=== PATIENT | female | born 1960 | race Caucasian/White ===

== ENCOUNTER 2017-01-05 13:45 | Inpatient (IN) | payer OTHER ==
[~2017-01-05] VITALS: Ht 147.3 cm; Wt 73.8 kg
[~2017-01-05 13:45] MED LIST: AML5T PO; ASPI81CH43 PO; ATOR20TA50 PO; CLO01T PO; FLUT110A INH; LIS20T PO; METF-312 PO
[2017-01-05] MEDS ORDERED: SODIUM CHLORIDE 0.9% 1,000 ML IVB ONE (14:33)
[2017-01-05 14:37] LABS: Basophils # (auto) 0.3 uL; Basophils % (auto) 1.6 % (0.0-2.0); Eosinophils # (auto) 0.2 uL; Eosinophils % (auto) 1.4 % (0.0-7.0); Hematocrit 41.8 % (36.0-46.0); Hemoglobin 14.3 g/dL (12.2-16.2); Lymphocytes # (auto) 3.3 uL; Lymphocytes % (auto) 20.6 % (10.0-50.0); Mean Corpuscular Hemoglobin 28.3 pg (28.0-32.0); Mean Corpuscular Hgb Conc. 34.3 g/dL (32.0-36.0); Mean Corpuscular Volume 82.6 fL (80.0-100.0); Mean Platelet Volume 9.4 fL (7.4-10.4); Monocytes # (auto) 0.7 uL; Monocytes % (auto) 4.7 % (0.0-12.0); Neutrophils # (auto) 11.4 uL; Neutrophils % (auto) 71.7 % (37.0-80.0); Platelet Count (auto) 334 10^3/uL (140-450); Red Cell Distribution Width 15.8 % (11.6-16.0); White Blood Cell 15.9 10^3/uL (4.4-10.8)
[2017-01-05 15:11] LABS: Albumin 4.2 g/dL (3.4-5.0); Bilirubin, Total 0.3 mg/dL (0.2-1.0); Calcium 9.3 mg/dL (8.5-10.1); Potassium 3.8 mmol/L (3.5-5.1); Total Protein 8.3 g/dL (6.4-8.2)
[2017-01-05 15:12] LABS: INR 0.91 (0.9-1.15); Partial Thromboplastin Time 23.3 sec (22.64-33.71); Prothrombin Time 9.8 sec (9.37-12.3)
[2017-01-05] MEDS ORDERED: cloNIDine HCL 0.1 MG TAB PO ONE (15:30)
[2017-01-05] MEDS ORDERED: MORPHINE SULF INJ 2 MG/ML SYRINGE 1ML IV ONE (15:30)
[2017-01-05] MEDS ORDERED: ONDANSETRON HCL 4 MG/2 ML VIAL IV ONE (15:30)
[2017-01-05] MEDS ORDERED: cefTRIAXone 1GM/50ML D5W 50 ML IV ONE (16:15)
[2017-01-05] MEDS ORDERED: metroNIDAZOLE 500MG/100ML 100 ML IV ONE (16:15)
[2017-01-05] MEDS ORDERED: VANCOMYCIN PER PHARMACY 0 MG IV SCH (17:30)
[2017-01-05] MEDS ORDERED: ONDANSETRON HCL 4 MG/2 ML VIAL IV PRN (17:30)
[2017-01-05] MEDS ORDERED: ACETAMINOPHEN 325 MG TAB PO PRN (17:30)
[2017-01-05] MEDS ORDERED: MORPHINE SULF INJ 2 MG/ML SYRINGE 1ML IV PRN (17:30)
[2017-01-05] MEDS ORDERED: TEMAZEPAM 15 MG CAP PO PRN (17:30)
[2017-01-05] MEDS ORDERED: NITROGLYCERIN 0.4 MG SL TAB SL PRN (17:30)
[2017-01-05] MEDS ORDERED: LABETALOL HCL 5 MG/ML 4ML SYRINGE IV PRN (17:30)
[2017-01-05] MEDS ORDERED: DEXTROSE (50%) 50ML SYRG IV PRN (17:30)
[2017-01-05] MEDS ORDERED: ENALAPRILAT 1.25 MG/ML-1ML VIAL IV PRN (17:30)
[2017-01-05] MEDS: MULTIPLE VITAMIN TAB PO SCH (18:00)
[2017-01-05] MEDS: amLODIPine BESYLATE 5 MG TAB PO SCH (18:30)
[2017-01-05] MEDS: LISINOPRIL 20 MG TAB PO SCH (18:30)
[2017-01-05] MEDS: VANCOMYCIN 750 MG in D5W 5% 250 ML IV SCH (18:30)
[2017-01-05] MEDS: SODIUM CHLOR 0.9% PF (SALINE LOCK) 10ML VIAL IV SCH (21:40)
[2017-01-05] MEDS: ACCU-CHEK COMFORT CURVE STRIP VI SCH (21:40)
[2017-01-05] MEDS: FAMOTIDINE 20 MG TAB PO SCH (21:40)
[2017-01-05] MEDS: ATORVASTATIN 20 MG TAB PO SCH (21:40)
[2017-01-05] MEDS: InsuLIN REG 1unit/0.01ml Soln (100units/ml) SC SCH (21:41)
[2017-01-05 21:45] VITALS: BP 136/83
[2017-01-05] MEDS: HYDROcodone-ACET 5/325MG TAB PO PRN (22:02)
[2017-01-05 22:55] VITALS: BP 136/83
[2017-01-05] MEDS: BUDESONIDE (INHALATION) 0.5 MG/2 ML NEB NEB SCH (23:00)
[2017-01-06] MEDS: HYDROcodone-ACET 5/325MG TAB PO PRN ×3 (02:20→14:42)
[2017-01-06 04:33] VITALS: BP 121/52
[2017-01-06 06:47] LABS: Basophils # (auto) 0.1 uL; Basophils % (auto) 0.7 % (0.0-2.0); Eosinophils # (auto) 0.2 uL; Eosinophils % (auto) 2.1 % (0.0-7.0); Hematocrit 35.2 % (36.0-46.0); Hemoglobin 11.7 g/dL (12.2-16.2); Lymphocytes # (auto) 2.2 uL; Lymphocytes % (auto) 22.8 % (10.0-50.0); Mean Corpuscular Hemoglobin 28.2 pg (28.0-32.0); Mean Corpuscular Hgb Conc. 33.2 g/dL (32.0-36.0); Mean Corpuscular Volume 84.9 fL (80.0-100.0); Monocytes # (auto) 0.5 uL; Monocytes % (auto) 4.9 % (0.0-12.0); Neutrophils # (auto) 6.6 uL; Neutrophils % (auto) 69.5 % (37.0-80.0); Platelet Count (auto) 254 10^3/uL (140-450); Red Cell Distribution Width 15.6 % (11.6-16.0); White Blood Cell 9.5 10^3/uL (4.4-10.8)
[2017-01-06] MEDS: ACCU-CHEK COMFORT CURVE STRIP VI SCH ×4 (06:53→22:02)
[2017-01-06] MEDS: SODIUM CHLOR 0.9% PF (SALINE LOCK) 10ML VIAL IV SCH ×3 (06:53→22:02)
[2017-01-06] MEDS: VANCOMYCIN 750 MG in D5W 5% 250 ML IV SCH ×2 (06:53→17:21)
[2017-01-06] MEDS: InsuLIN REG 1unit/0.01ml Soln (100units/ml) SC SCH ×4 (06:54→22:00)
[2017-01-06 07:11] LABS: Albumin 3.3 g/dL (3.4-5.0); BUN/Creatinine Ratio 22.4; Bilirubin, Total 0.4 mg/dL (0.2-1.0); Calcium 8.7 mg/dL (8.5-10.1); Potassium 4.1 mmol/L (3.5-5.1); Total Protein 6.4 g/dL (6.4-8.2)
[2017-01-06 07:11] LABS: Urine Bilirubin Negative (Negative); Urine Blood Negative /uL (Negative); Urine Color Yellow (Yellow); Urine Ketone Negative (Negative); Urine Mucus FEW (None Seen); Urine Nitrite Negative (Negative); Urine RBC 2 /hpf (0 - 4); Urine Squamous Epithelial Cell FEW /hpf (<5); Urine Urobilinogen Normal (Negative); Urine pH 5.5 (5.0-8.0)
[2017-01-06 07:12] LABS: Urine Glucose 1+ mg/dL (Normal)
[2017-01-06 08:00] VITALS: BP 123/81
[2017-01-06 09:00] VITALS: BP 123/81
[2017-01-06] MEDS: cefTRIAXone 1GM/50ML D5W 50 ML IV SCH (09:14)
[2017-01-06] MEDS: LISINOPRIL 20 MG TAB PO SCH (09:15)
[2017-01-06] MEDS: FAMOTIDINE 20 MG TAB PO SCH ×2 (09:15→22:02)
[2017-01-06] MEDS: MULTIPLE VITAMIN TAB PO SCH (09:15)
[2017-01-06] MEDS: amLODIPine BESYLATE 5 MG TAB PO SCH (09:16)
[2017-01-06] MEDS: BUDESONIDE (INHALATION) 0.5 MG/2 ML NEB NEB SCH ×2 (11:02→22:45)
[2017-01-06 13:00] VITALS: BP 108/74
[2017-01-06 17:00] VITALS: BP 166/76
[2017-01-06] MEDS: MORPHINE SULF INJ 2 MG/ML SYRINGE 1ML IV PRN ×2 (17:42→22:40)
[2017-01-06 21:52] VITALS: BP 156/77
[2017-01-06] MEDS: ATORVASTATIN 20 MG TAB PO SCH (22:02)
[2017-01-07] VITALS (7 sets, daily range): BP systolic 156–163; BP diastolic 71–88
[2017-01-07] MEDS: HYDROcodone-ACET 5/325MG TAB PO PRN ×4 (02:45→21:05)
[2017-01-07] MEDS: MORPHINE SULF INJ 2 MG/ML SYRINGE 1ML IV PRN ×4 (04:34→19:06)
[2017-01-07 05:17] LABS: Basophils # (auto) 0 uL; Basophils % (auto) 0.5 % (0.0-2.0); Eosinophils # (auto) 0.3 uL; Eosinophils % (auto) 2.7 % (0.0-7.0); Hemoglobin 12.1 g/dL (12.2-16.2); Lymphocytes # (auto) 2.8 uL; Lymphocytes % (auto) 28.2 % (10.0-50.0); Mean Corpuscular Hemoglobin 28.2 pg (28.0-32.0); Mean Corpuscular Hgb Conc. 33.5 g/dL (32.0-36.0); Mean Corpuscular Volume 84.1 fL (80.0-100.0); Mean Platelet Volume 9.7 fL (7.4-10.4); Monocytes # (auto) 0.5 uL; Monocytes % (auto) 5.4 % (0.0-12.0); Neutrophils # (auto) 6.2 uL; Neutrophils % (auto) 63.2 % (37.0-80.0); Platelet Count (auto) 267 10^3/uL (140-450); Red Cell Distribution Width 15.5 % (11.6-16.0); White Blood Cell 9.8 10^3/uL (4.4-10.8)
[2017-01-07 05:38] LABS: BUN/Creatinine Ratio 21.4; Calcium 8.7 mg/dL (8.5-10.1); Potassium 4.1 mmol/L (3.5-5.1)
[2017-01-07] MEDS: VANCOMYCIN 750 MG in D5W 5% 250 ML IV SCH (06:17)
[2017-01-07] MEDS: SODIUM CHLOR 0.9% PF (SALINE LOCK) 10ML VIAL IV SCH ×3 (06:49→21:45)
[2017-01-07] MEDS: ACCU-CHEK COMFORT CURVE STRIP VI SCH ×4 (06:49→21:45)
[2017-01-07] MEDS: InsuLIN REG 1unit/0.01ml Soln (100units/ml) SC SCH ×4 (06:49→21:45)
[2017-01-07] MEDS: cefTRIAXone 1GM/50ML D5W 50 ML IV SCH (08:30)
[2017-01-07] MEDS: amLODIPine BESYLATE 5 MG TAB PO SCH (09:53)
[2017-01-07] MEDS: LISINOPRIL 20 MG TAB PO SCH (09:53)
[2017-01-07] MEDS: MULTIPLE VITAMIN TAB PO SCH (09:53)
[2017-01-07] MEDS: FAMOTIDINE 20 MG TAB PO SCH (09:54)
[2017-01-07] MEDS: BUDESONIDE (INHALATION) 0.5 MG/2 ML NEB NEB SCH ×2 (10:17→22:22)
[2017-01-07] MEDS ORDERED: NICOTINE 21MG/24 HR TOPICAL PATCH TD ONE (11:30)
[2017-01-07] MEDS ORDERED: LACTULOSE 20Gm/30ML SOLN PO PRN (15:15)
[2017-01-07] MEDS ORDERED: GOLYTELY 4L KIT PO ONE (15:30)
[2017-01-07] MEDS: ATORVASTATIN 20 MG TAB PO SCH (21:44)
[2017-01-07] MEDS: PANTOPRAZOLE 40 MG TAB PO SCH (21:44)
[2017-01-08] MEDS: MORPHINE SULF INJ 2 MG/ML SYRINGE 1ML IV PRN ×3 (00:13→15:02)
[2017-01-08 05:30] VITALS: BP 155/95
[2017-01-08] MEDS: SODIUM CHLOR 0.9% PF (SALINE LOCK) 10ML VIAL IV SCH ×3 (05:48→21:49)
[2017-01-08] MEDS: ACCU-CHEK COMFORT CURVE STRIP VI SCH ×4 (06:25→22:00)
[2017-01-08] MEDS: InsuLIN REG 1unit/0.01ml Soln (100units/ml) SC SCH ×4 (06:25→22:00)
[2017-01-08] MEDS ORDERED: SODIUM CHLORIDE LOCK 10 ML ONE (08:24)
[2017-01-08] MEDS ORDERED: LIDOCAINE VISCOUS 2% 15ML UD ONE (08:24)
[2017-01-08] MEDS ORDERED: MIDAZOLAM HCL 5 MG/ML-1ML VIAL ONE (08:26)
[2017-01-08 08:31] VITALS: BP 189/110
[2017-01-08] MEDS: MULTIPLE VITAMIN TAB PO SCH (08:41)
[2017-01-08] MEDS: PANTOPRAZOLE 40 MG TAB PO SCH ×2 (08:41→21:48)
[2017-01-08] MEDS: NICOTINE 21MG/24 HR TOPICAL PATCH TD SCH (08:41)
[2017-01-08] MEDS: LISINOPRIL 20 MG TAB PO SCH (08:44)
[2017-01-08] MEDS: HYDROcodone-ACET 5/325MG TAB PO PRN ×2 (08:45→22:56)
[2017-01-08] MEDS: amLODIPine BESYLATE 5 MG TAB PO SCH (08:45)
[2017-01-08] MEDS: BUDESONIDE (INHALATION) 0.5 MG/2 ML NEB NEB SCH ×2 (11:10→20:03)
[2017-01-08] MEDS: MIDAZOLAM HCL 5 MG/ML-1ML VIAL ONE ×4 (12:23→12:39)
[2017-01-08] MEDS: fentaNYL CITRATE 100 MCG/2 ML VL ONE ×4 (12:23→12:41)
[2017-01-08 12:26] VITALS: BP 159/78
[2017-01-08] MEDS: cloNIDine HCL 0.1 MG TAB PO SCH ×2 (15:01→21:49)
[2017-01-08] MEDS: metroNIDAZOLE 500 MG TAB PO SCH ×2 (15:01→21:48)
[2017-01-08 16:39] VITALS: BP 155/80
[2017-01-08] MEDS: CIPROFLOXACIN HCL 500 MG TAB PO SCH (21:48)
[2017-01-08] MEDS: ATORVASTATIN 20 MG TAB PO SCH (21:49)
[2017-01-08 22:00] VITALS: BP 163/85
[2017-01-08] MEDS ORDERED: CIPROFLOXACIN HCL 500 MG TAB PO SCH (22:00)
[2017-01-09] MEDS: HYDROcodone-ACET 5/325MG TAB PO PRN ×2 (04:52→08:20)
[2017-01-09 05:00] VITALS: BP 153/76
[2017-01-09] MEDS: cloNIDine HCL 0.1 MG TAB PO SCH (05:54)
[2017-01-09] MEDS: metroNIDAZOLE 500 MG TAB PO SCH (05:54)
[2017-01-09] MEDS: SODIUM CHLOR 0.9% PF (SALINE LOCK) 10ML VIAL IV SCH (05:55)
[2017-01-09 06:04] LABS: Basophils # (auto) 0 uL; Basophils % (auto) 0.4 % (0.0-2.0); Eosinophils # (auto) 0.3 uL; Eosinophils % (auto) 2.5 % (0.0-7.0); Hematocrit 38.5 % (36.0-46.0); Lymphocytes # (auto) 3.9 uL; Lymphocytes % (auto) 33.3 % (10.0-50.0); Mean Corpuscular Hemoglobin 28.6 pg (28.0-32.0); Mean Corpuscular Hgb Conc. 33.7 g/dL (32.0-36.0); Mean Corpuscular Volume 84.8 fL (80.0-100.0); Mean Platelet Volume 9.6 fL (7.4-10.4); Monocytes # (auto) 0.8 uL; Monocytes % (auto) 6.6 % (0.0-12.0); Neutrophils # (auto) 6.8 uL; Neutrophils % (auto) 57.2 % (37.0-80.0); Platelet Count (auto) 331 10^3/uL (140-450); Red Cell Distribution Width 15.6 % (11.6-16.0); White Blood Cell 11.9 10^3/uL (4.4-10.8)
[2017-01-09 06:36] LABS: BUN/Creatinine Ratio 23.4; Calcium 9.7 mg/dL (8.5-10.1); Potassium 4.1 mmol/L (3.5-5.1)
[2017-01-09] MEDS: ACCU-CHEK COMFORT CURVE STRIP VI SCH (07:00)
[2017-01-09] MEDS: InsuLIN REG 1unit/0.01ml Soln (100units/ml) SC SCH (07:00)
[2017-01-09] MEDS: BUDESONIDE (INHALATION) 0.5 MG/2 ML NEB NEB SCH (07:34)
[2017-01-09] MEDS ORDERED: MET500T PO (08:56)
[2017-01-09] MEDS ORDERED: PANT40T PO (08:56)
[2017-01-09] MEDS ORDERED: CIP500T PO (08:56)
[2017-01-09 09:00] VITALS: BP 155/68
[2017-01-09] MEDS: MULTIPLE VITAMIN TAB PO SCH (09:30)
[2017-01-09] MEDS: CIPROFLOXACIN HCL 500 MG TAB PO SCH (09:30)
[2017-01-09] MEDS: PANTOPRAZOLE 40 MG TAB PO SCH (09:30)
[2017-01-09] MEDS: amLODIPine BESYLATE 5 MG TAB PO SCH (09:31)
[2017-01-09] MEDS: NICOTINE 21MG/24 HR TOPICAL PATCH TD SCH (09:31)
[2017-01-09] MEDS ORDERED: LISINOPRIL 20 MG TAB PO SCH (10:00)
== END 2017-01-09 11:40 | disposition home or self-care (01) | DRG 377 ==
LOC: ER 13:45 → TELE 13:46 → TELE-WESTW 20:15 → WEST WING 01-07 11:16
PROVIDERS: ADMIT Internal Medicine; ATTEND Internal Medicine
PROC: 0DBM8ZX Excision of Descending Colon, Via Natural or Artificial Opening Endoscopic, Diagnostic (ICD-10-PCS; 2017-01-08)
PROC: 0DBN8ZX Excision of Sigmoid Colon, Via Natural or Artificial Opening Endoscopic, Diagnostic (ICD-10-PCS; 2017-01-08)
PROC: 0DB68ZX Excision of Stomach, Via Natural or Artificial Opening Endoscopic, Diagnostic (ICD-10-PCS; 2017-01-08)
PROC: 0DBH8ZX Excision of Cecum, Via Natural or Artificial Opening Endoscopic, Diagnostic (ICD-10-PCS; principal; 2017-01-08 12:20)
PROC: 0DBL8ZX Excision of Transverse Colon, Via Natural or Artificial Opening Endoscopic, Diagnostic (ICD-10-PCS; 2017-01-08 12:20)
DX: K29.71 Gastritis, unspecified, with bleeding (principal); N17.0 Acute kidney failure with tubular necrosis; K55.9 Vascular disorder of intestine, unspecified; D12.0 Benign neoplasm of cecum; I25.10 Atherosclerotic heart disease of native coronary artery without angina pectoris; E11.21 Type 2 diabetes mellitus with diabetic nephropathy; N18.3 Chronic kidney disease, stage 3 (moderate); I13.10 Hypertensive heart and chronic kidney disease without heart failure, with stage 1 through stage 4 chronic kidney disease, or unspecified chronic kidney disease; E78.5 Hyperlipidemia, unspecified; D12.3 Benign neoplasm of transverse colon; D12.4 Benign neoplasm of descending colon; E11.22 Type 2 diabetes mellitus with diabetic chronic kidney disease; F17.210 Nicotine dependence, cigarettes, uncomplicated; K64.8 Other hemorrhoids; K76.0 Fatty (change of) liver, not elsewhere classified; Z79.899 Other long term (current) drug therapy; Z90.49 Acquired absence of other specified parts of digestive tract; Z79.82 Long term (current) use of aspirin; Z88.5 Allergy status to narcotic agent; Z88.8 Allergy status to other drugs, medicaments and biological substances; Z90.710 Acquired absence of both cervix and uterus
CPT/HCPCS: 36415; 43239; 45380; 71010; 74176; 80048; 80053; 80202; 81001; 82270; 82962; 83036; 83605; 83735; 84443; 84484; 85025; 85610; 85730; 87045; 87086; 87493; 87899; 93005; 94640; 94761; 96374; 96375; J0696; J1815; J2250; J2405; J3490; J7060

== ENCOUNTER 2017-05-12 20:33 | Emergency (ER) | payer OTHER ==
[~2017-05-12] VITALS: Ht 147.3 cm; Wt 72.6 kg
[~2017-05-12 20:33] MED LIST changes: -ASPI81CH43 PO; +CIP500T PO; +MET500T PO; -METF-312 PO; +METF-370 PO; +PANT40T PO
[2017-05-12 21:14] LABS: Basophils # (auto) 0.1 uL; Basophils % (auto) 0.6 % (0.0-2.0); CONDITION Y; Eosinophils # (auto) 0.3 uL; Eosinophils % (auto) 2.3 % (0.0-7.0); Hematocrit 42.3 % (36.0-46.0); Lymphocytes # (auto) 4.2 uL; Lymphocytes % (auto) 34.5 % (10.0-50.0); Mean Corpuscular Hemoglobin 28.5 pg (28.0-32.0); Mean Corpuscular Hgb Conc. 33.2 g/dL (32.0-36.0); Mean Platelet Volume 9.2 fL (6.9-10.8); Monocytes # (auto) 0.7 uL; Monocytes % (auto) 5.9 % (0.0-12.0); Neutrophils # (auto) 6.9 uL; Neutrophils % (auto) 56.7 % (37.0-80.0); Platelet Count (auto) 383 10^3/uL (140-450); Red Cell Distribution Width 15.4 % (11.8-14.3); White Blood Cell 12.2 10^3/uL (4.4-10.8)
[2017-05-12 21:37] LABS: Urine Bilirubin Negative (Negative); Urine Blood Negative /uL (Negative); Urine Color Yellow (Yellow); Urine Glucose TRACE mg/dL (Normal); Urine Ketone Negative (Negative); Urine Nitrite Negative (Negative); Urine RBC <1 /hpf (0 - 4); Urine Squamous Epithelial Cell FEW /hpf (<5); Urine Urobilinogen Normal (Negative)
[2017-05-12 22:13] LABS: Albumin 4.2 g/dL (3.4-5.0); Anion Gap 9 (5-15); BUN/Creatinine Ratio 25.9; Blood Urea Nitrogen 45 mg/dL (7-18); Calcium 9.2 mg/dL (8.5-10.1); Carbon Dioxide 27 mmol/L (21-32); Chloride 108 mmol/L (98-107); GFR African American 39 mL/min; GFR Non-African American 32 mL/min; Glucose 216 mg/dL (74-106); Magnesium 2.9 mg/dL (1.6-2.6); Potassium 4.5 mmol/L (3.5-5.1); Sodium 144 mmol/L (136-145)
[2017-05-12 22:16] LABS: Amylase 85 U/L (25-115)
[2017-05-12 22:24] LABS: Alkaline Phosphatase 108 U/L (45-117); Aspartate Aminotransferase 10 U/L (15-37); Bilirubin, Total 0.2 mg/dL (0.2-1.0); Total Protein 8.2 g/dL (6.4-8.2)
[2017-05-12] MEDS ORDERED: HYDROmorphone HCL 2 MG/ML VL IV ONE (23:45)
[2017-05-12] MEDS ORDERED: cloNIDine HCL 0.1 MG TAB PO ONE (23:45)
[2017-05-12] MEDS ORDERED: ONDANSETRON HCL 4 MG/2 ML VIAL IV ONE (23:45)
[2017-05-13 04:00] VITALS: BP 138/87
== END 2017-05-13 05:03 | disposition home or self-care (01) ==
LOC: EDBD 20:43 → ER 20:43
DX: K58.9 Irritable bowel syndrome, unspecified (principal); D72.829 Elevated white blood cell count, unspecified; I10 Essential (primary) hypertension; F17.210 Nicotine dependence, cigarettes, uncomplicated; I25.10 Atherosclerotic heart disease of native coronary artery without angina pectoris; R51 Headache; E11.9 Type 2 diabetes mellitus without complications; E78.5 Hyperlipidemia, unspecified; Z86.73 Personal history of transient ischemic attack (TIA), and cerebral infarction without residual deficits; Z88.8 Allergy status to other drugs, medicaments and biological substances; Z90.49 Acquired absence of other specified parts of digestive tract; Z90.710 Acquired absence of both cervix and uterus; Z79.899 Other long term (current) drug therapy
CPT/HCPCS: 36415; 70450; 74176; 80053; 80307; 81001; 81025; 82150; 83690; 83735; 84484; 85025; 93005; 96374; 96375; 99285; J1170; J2405

== ENCOUNTER 2017-08-12 10:12 | Inpatient (IN) | payer OTHER ==
[~2017-08-12] VITALS: Ht 160 cm; Wt 75.7 kg
[2017-08-12] MEDS ORDERED: SODIUM CHLORIDE 0.9% 2,450 ML IV ONE (10:45)
[2017-08-12 10:55] LABS: Basophils # (auto) 0.1 uL; Basophils % (auto) 0.9 % (0.0-2.0); Eosinophils # (auto) 0.3 uL; Eosinophils % (auto) 3.1 % (0.0-7.0); Hematocrit 40.3 % (36.0-46.0); Hemoglobin 13.2 g/dL (12.2-16.2); Lymphocytes # (auto) 2.7 uL; Lymphocytes % (auto) 29.7 % (10.0-50.0); Mean Corpuscular Hemoglobin 28.4 pg (28.0-32.0); Mean Corpuscular Hgb Conc. 32.7 g/dL (32.0-36.0); Mean Corpuscular Volume 86.8 fL (80.0-100.0); Mean Platelet Volume 8.5 fL (6.9-10.8); Monocytes # (auto) 0.6 uL; Monocytes % (auto) 6.5 % (0.0-12.0); Neutrophils # (auto) 5.5 uL; Neutrophils % (auto) 59.8 % (37.0-80.0); Nucleated Red Blood Cells % 0.1 %; Platelet Count (auto) 258 10^3/uL (140-450); Red Cell Distribution Width 14.9 % (11.8-14.3); White Blood Cell 9.2 10^3/uL (4.4-10.8)
[2017-08-12 11:15] LABS: Albumin 3.5 g/dL (3.4-5.0); BUN/Creatinine Ratio 19.2; Bilirubin, Total 0.2 mg/dL (0.2-1.0); Magnesium 2.5 mg/dL (1.6-2.6); Potassium 4.5 mmol/L (3.5-5.1); Total Protein 7.2 g/dL (6.4-8.2)
[2017-08-12] MEDS ORDERED: DEXTROSE (50%) 50ML SYRG IV PRN (15:15)
[2017-08-12] MEDS ORDERED: ALBUTEROL SULF 2.5 MG/0.5ML(0.5%) NEB SOLN NEB PRN (15:15)
[2017-08-12] MEDS ORDERED: IPRATROPIUM BROM 0.5 MG/2.5ML INH SOL NEB PRN (15:15)
[2017-08-12] MEDS ORDERED: SODIUM CHLORIDE 0.9% 1,000 ML IV ONE (15:15)
[2017-08-12 16:20] LABS: Urine Bilirubin Negative (Negative); Urine Blood Negative /uL (Negative); Urine Color Yellow (Yellow); Urine Glucose TRACE mg/dL (Normal); Urine Ketone Negative (Negative); Urine Mucus FEW (None Seen); Urine Nitrite Negative (Negative); Urine RBC 1 /hpf (0 - 4); Urine Squamous Epithelial Cell MOD /hpf (<5); Urine pH 5.5 (5.0-8.0)
[2017-08-12] MEDS: InsuLIN REG 1unit/0.01ml Soln (100units/ml) SC SCH ×2 (17:00→22:56)
[2017-08-12] MEDS: ACCU-CHEK COMFORT CURVE STRIP VI SCH ×2 (17:18→22:24)
[2017-08-12] MEDS ORDERED: cloNIDine HCL 0.1 MG TAB PO SCH (18:00)
[2017-08-12] MEDS ORDERED: CLOPIDOGREL BISULFATE 75 MG TAB PO ONE (19:45)
[2017-08-12] MEDS ORDERED: LORazepam 2MG/ML-1ML VIAL IV PRN (19:45)
[2017-08-12 20:16] LABS: Cholesterol 175 mg/dL (< 200); HDL Cholesterol 26 mg/dL (40-59); LDL Cholesterol 103 mg/dL (< 100); Triglycerides 369 mg/dL (< 150)
[2017-08-12 21:00] VITALS: BP 119/70
[2017-08-12 22:00] VITALS: BP 166/76
[2017-08-12] MEDS: ATORVASTATIN 20 MG TAB PO SCH (22:56)
[2017-08-13] VITALS (8 sets, daily range): BP systolic 119–181; BP diastolic 69–95
[2017-08-13 05:28] LABS: Basophils # (auto) 0.1 uL; Basophils % (auto) 0.7 % (0.0-2.0); Eosinophils # (auto) 0.2 uL; Eosinophils % (auto) 2.6 % (0.0-7.0); Hemoglobin 12.5 g/dL (12.2-16.2); Lymphocytes % (auto) 33.9 % (10.0-50.0); Mean Corpuscular Hemoglobin 29.3 pg (28.0-32.0); Mean Corpuscular Hgb Conc. 33.8 g/dL (32.0-36.0); Mean Corpuscular Volume 86.9 fL (80.0-100.0); Monocytes # (auto) 0.4 uL; Monocytes % (auto) 5.1 % (0.0-12.0); Neutrophils % (auto) 57.7 % (37.0-80.0); Nucleated Red Blood Cells % 0.2 %; Platelet Count (auto) 253 10^3/uL (140-450); Red Cell Distribution Width 14.7 % (11.8-14.3); White Blood Cell 8.7 10^3/uL (4.4-10.8)
[2017-08-13] MEDS: ACCU-CHEK COMFORT CURVE STRIP VI SCH ×4 (05:39→22:33)
[2017-08-13 05:44] LABS: INR 0.92 (0.9-1.15); Partial Thromboplastin Time 23.6 sec (22.64-33.71)
[2017-08-13 05:47] LABS: BUN/Creatinine Ratio 21.1; Calcium 8.6 mg/dL (8.5-10.1); Potassium 4.3 mmol/L (3.5-5.1)
[2017-08-13] MEDS: InsuLIN REG 1unit/0.01ml Soln (100units/ml) SC SCH ×4 (07:36→22:34)
[2017-08-13] MEDS: amLODIPine BESYLATE 5 MG TAB PO SCH (08:26)
[2017-08-13] MEDS: PANTOPRAZOLE 40 MG/10 ML VIAL IV SCH (08:26)
[2017-08-13] MEDS ORDERED: ASPirin 81 mg TAB PO SCH (10:00)
[2017-08-13] MEDS ORDERED: IBUPROFEN 400 MG TAB PO ONE (10:30)
[2017-08-13] MEDS ORDERED: LISINOPRIL 20 MG TAB PO ONE (11:45)
[2017-08-13] MEDS: CLOPIDOGREL BISULFATE 75 MG TAB PO SCH (20:01)
[2017-08-13] MEDS: ATORVASTATIN 20 MG TAB PO SCH (22:33)
[2017-08-13] MEDS ORDERED: ALBUTEROL SULF 2.5 MG/0.5ML(0.5%) NEB SOLN NEB PRN (23:45)
[2017-08-13] MEDS ORDERED: IPRATROPIUM BROM 0.5 MG/2.5ML INH SOL NEB PRN (23:45)
[2017-08-14] MEDS ORDERED: ALBUTEROL SULF 2.5 MG/0.5ML(0.5%) NEB SOLN NEB SCH (02:00)
[2017-08-14] MEDS ORDERED: IPRATROPIUM BROM 0.5 MG/2.5ML INH SOL NEB SCH (02:00)
[2017-08-14] MEDS: cloNIDine HCL 0.1 MG TAB PO PRN ×2 (03:49→11:49)
[2017-08-14 05:00] VITALS: BP 154/70
[2017-08-14] MEDS: ACCU-CHEK COMFORT CURVE STRIP VI SCH ×2 (06:16→11:32)
[2017-08-14] MEDS: InsuLIN REG 1unit/0.01ml Soln (100units/ml) SC SCH ×2 (06:17→11:43)
[2017-08-14 06:38] LABS: BUN/Creatinine Ratio 19.9; Calcium 8.8 mg/dL (8.5-10.1); Potassium 4.7 mmol/L (3.5-5.1)
[2017-08-14] MEDS ORDERED: AMLO10TA2 PO ×2 (07:42→13:11)
[2017-08-14 08:00] VITALS: BP 160/95
[2017-08-14 08:21] VITALS: BP 160/95
[2017-08-14] MEDS ORDERED: LISINOPRIL 20 MG TAB PO SCH (10:00)
[2017-08-14] MEDS: PANTOPRAZOLE 40 MG/10 ML VIAL IV SCH (10:31)
[2017-08-14] MEDS: CLOPIDOGREL BISULFATE 75 MG TAB PO SCH (10:32)
[2017-08-14] MEDS: amLODIPine BESYLATE 5 MG TAB PO SCH (10:33)
[2017-08-14 11:55] VITALS: BP 182/78
[2017-08-14] MEDS ORDERED: LISI40TA PO (13:11)
[2017-08-14] MEDS ORDERED: MET25T PO (13:11)
[2017-08-14 13:14] VITALS: BP 182/78
[2017-08-14] MEDS ORDERED: METOPROLOL TARTRATE 25 MG TAB PO ONE (13:15)
== END 2017-08-14 16:30 | disposition home health service (06) | DRG 93 ==
LOC: EDBD 10:12 → ER 10:12 → OVERFLOW 10:13 → EAST 20:35
PROVIDERS: ADMIT Internal Medicine; ATTEND Internal Medicine
DX: G92 Toxic encephalopathy (principal); E11.21 Type 2 diabetes mellitus with diabetic nephropathy; I13.10 Hypertensive heart and chronic kidney disease without heart failure, with stage 1 through stage 4 chronic kidney disease, or unspecified chronic kidney disease; E11.65 Type 2 diabetes mellitus with hyperglycemia; E11.22 Type 2 diabetes mellitus with diabetic chronic kidney disease; E78.5 Hyperlipidemia, unspecified; E86.0 Dehydration; F17.210 Nicotine dependence, cigarettes, uncomplicated; G47.10 Hypersomnia, unspecified; N18.3 Chronic kidney disease, stage 3 (moderate); J44.9 Chronic obstructive pulmonary disease, unspecified; K21.9 Gastro-esophageal reflux disease without esophagitis; K29.70 Gastritis, unspecified, without bleeding; Z82.49 Family history of ischemic heart disease and other diseases of the circulatory system; Z83.3 Family history of diabetes mellitus; Z86.73 Personal history of transient ischemic attack (TIA), and cerebral infarction without residual deficits; Z90.710 Acquired absence of both cervix and uterus; Z90.49 Acquired absence of other specified parts of digestive tract; Z88.8 Allergy status to other drugs, medicaments and biological substances; Z79.899 Other long term (current) drug therapy
CPT/HCPCS: 36415; 70450; 70551; 71010; 80048; 80053; 80061; 80307; 80320; 81001; 82607; 82962; 83036; 83735; 84443; 84484; 85025; 85610; 85652; 85730; 86141; 93005; 93306; 93886; 95819; 96360; 96361; C9113; J1815

== ENCOUNTER 2018-07-09 18:26 | Emergency (ER) | payer MEDICAID ==
[~2018-07-09] VITALS: Ht 147.3 cm; Wt 71.2 kg
[~2018-07-09 18:26] MED LIST changes: -AML5T PO; +AMLO10TA12 PO; -CIP500T PO; -CLO01T PO; +LISI40TA PO; +MET25T PO; -MET500T PO
[2018-07-09] MEDS ORDERED: cloNIDine HCL 0.1 MG TAB ONE (18:58)
[2018-07-09] MEDS ORDERED: cloNIDine HCL 0.1 MG TAB PO ONE (19:00)
[2018-07-09] MEDS ORDERED: NEOMYCIN-BACITRACIN-POLYM UNITDOSE PKG TOP OINT TOP ONE (19:45)
[2018-07-09] MEDS ORDERED: TETANUS-DIPTH-ACEL PERTUSSIS 0.5ML SYRG IM ONE (19:45)
[2018-07-09 20:00] VITALS: BP 189/85
[2018-07-09] MEDS ORDERED: NITROGLYCERIN 0.4 MG SL TAB SL ONE (20:00)
== END 2018-07-09 20:11 | disposition home or self-care (01) ==
LOC: ER 18:26
DX: S81.852A Open bite, left lower leg, initial encounter (principal); S61.051A Open bite of right thumb without damage to nail, initial encounter; J44.9 Chronic obstructive pulmonary disease, unspecified; E11.22 Type 2 diabetes mellitus with diabetic chronic kidney disease; I12.9 Hypertensive chronic kidney disease with stage 1 through stage 4 chronic kidney disease, or unspecified chronic kidney disease; N18.9 Chronic kidney disease, unspecified; E78.5 Hyperlipidemia, unspecified; F17.210 Nicotine dependence, cigarettes, uncomplicated; Z88.8 Allergy status to other drugs, medicaments and biological substances; Z79.84 Long term (current) use of oral hypoglycemic drugs; Z79.899 Other long term (current) drug therapy; Z86.73 Personal history of transient ischemic attack (TIA), and cerebral infarction without residual deficits; Z90.49 Acquired absence of other specified parts of digestive tract; Z90.710 Acquired absence of both cervix and uterus; W55.01XA Bitten by cat, initial encounter; Y93.89 Activity, other specified; Y99.8 Other external cause status; Y92.89 Other specified places as the place of occurrence of the external cause
CPT/HCPCS: 90471; 90715

== ENCOUNTER 2018-07-21 15:39 | Emergency (ER) | payer MEDICAID ==
[~2018-07-21] VITALS: Ht 147.3 cm; Wt 71.2 kg
[2018-07-21] MEDS ORDERED: cloNIDine HCL 0.1 MG TAB ONE (15:59)
[2018-07-21] MEDS ORDERED: cloNIDine HCL 0.1 MG TAB PO ONE (16:00)
[2018-07-21] MEDS ORDERED: methylPREDNISolone SOD SUCC 125 MG/2 ML VL IM ONE (17:30)
[2018-07-21] MEDS ORDERED: diphenhdrAMINE HCL 25 MG CAP PO ONE (17:30)
[2018-07-21 17:32] VITALS: BP 161/78
== END 2018-07-21 18:14 | disposition home or self-care (01) ==
LOC: ER 15:42
DX: T78.40XA Allergy, unspecified, initial encounter (principal); I10 Essential (primary) hypertension; F17.210 Nicotine dependence, cigarettes, uncomplicated; I12.9 Hypertensive chronic kidney disease with stage 1 through stage 4 chronic kidney disease, or unspecified chronic kidney disease; E11.22 Type 2 diabetes mellitus with diabetic chronic kidney disease; N18.9 Chronic kidney disease, unspecified; J44.9 Chronic obstructive pulmonary disease, unspecified; Z86.73 Personal history of transient ischemic attack (TIA), and cerebral infarction without residual deficits; Z90.710 Acquired absence of both cervix and uterus; Z90.49 Acquired absence of other specified parts of digestive tract; Z90.89 Acquired absence of other organs; Z88.8 Allergy status to other drugs, medicaments and biological substances; X58.XXXA Exposure to other specified factors, initial encounter
CPT/HCPCS: 96372; 99283; J2930

== ENCOUNTER 2018-08-04 09:29 | Emergency (ER) | payer MEDICAID ==
[~2018-08-04] VITALS: Ht 147.3 cm; Wt 72.6 kg
[2018-08-04 09:58] LABS: Urine Bacteria NONE SEEN /hpf (None Seen); Urine Blood Negative /uL (Negative); Urine Specific Gravity 1.027 (1.001-1.035); Urine WBC 1 /hpf (0 - 5)
[2018-08-04 10:14] VITALS: BP 177/107
[2018-08-04] MEDS ORDERED: methylPREDNISolone SOD SUCC 125 MG/2 ML VL IV ONE (10:15)
[2018-08-04] MEDS ORDERED: LORazepam 2MG/ML-1ML VIAL IV ONE (10:15)
[2018-08-04] MEDS ORDERED: cloNIDine HCL 0.1 MG TAB PO ONE (10:15)
[2018-08-04] MEDS ORDERED: IPRATROPIUM BROM 0.5 MG/2.5ML INH SOL NEB ONE (10:15)
[2018-08-04] MEDS ORDERED: ALBUTEROL SULF 2.5 MG/0.5ML(0.5%) NEB SOLN NEB ONE (10:15)
[2018-08-04 10:32] LABS: Basophils # (auto) 0.1 uL; Basophils % (auto) 0.8 % (0.0-2.0); Eosinophils # (auto) 0.3 uL; Eosinophils % (auto) 3.9 % (0.0-7.0); Hematocrit 39.2 % (36.0-46.0); Hemoglobin 12.7 g/dL (12.2-16.2); Lymphocytes # (auto) 1.7 uL; Lymphocytes % (auto) 24.8 % (10.0-50.0); Mean Corpuscular Hemoglobin 28.2 pg (28.0-32.0); Mean Corpuscular Hgb Conc. 32.3 g/dL (32.0-36.0); Mean Corpuscular Volume 87.1 fL (80.0-100.0); Monocytes # (auto) 0.6 uL; Monocytes % (auto) 8.6 % (0.0-12.0); Neutrophils # (auto) 4.2 uL; Neutrophils % (auto) 61.9 % (37.0-80.0); Nucleated Red Blood Cells % 0.1 %; Platelet Count (auto) 296 10^3/uL (140-450); Red Cell Distribution Width 15.8 % (11.8-14.3); White Blood Cell 6.8 10^3/uL (4.4-10.8)
[2018-08-04 10:43] LABS: Albumin 3.6 g/dL (3.4-5.0); Anion Gap 4 (5-15); Blood Urea Nitrogen 18 mg/dL (7-18); Calcium 8.9 mg/dL (8.5-10.1); Carbon Dioxide 25 mmol/L (21-32); Chloride 110 mmol/L (98-107); Glucose 219 mg/dL (74-106); Potassium 3.9 mmol/L (3.5-5.1); Sodium 139 mmol/L (136-145)
[2018-08-04 10:50] LABS: Alanine Aminotransferase 72 U/L (13-56); Alkaline Phosphatase 120 U/L (45-117); Aspartate Aminotransferase 49 U/L (15-37); BUN/Creatinine Ratio 12.6; Bilirubin, Total 0.4 mg/dL (0.2-1.0); GFR African American 48 mL/min; GFR Non-African American 40 mL/min; Total Protein 7.6 g/dL (6.4-8.2)
[2018-08-04] MEDS ORDERED: cefTRIAXone 1GM/50ML D5W 50 ML IV ONE (17:14)
== END 2018-08-04 12:42 | disposition left against medical advice (07) ==
LOC: ER 09:29
DX: J44.1 Chronic obstructive pulmonary disease with (acute) exacerbation (principal); E11.22 Type 2 diabetes mellitus with diabetic chronic kidney disease; I12.9 Hypertensive chronic kidney disease with stage 1 through stage 4 chronic kidney disease, or unspecified chronic kidney disease; N18.9 Chronic kidney disease, unspecified; F17.210 Nicotine dependence, cigarettes, uncomplicated; E78.5 Hyperlipidemia, unspecified; Z86.73 Personal history of transient ischemic attack (TIA), and cerebral infarction without residual deficits; Z79.4 Long term (current) use of insulin; Z90.49 Acquired absence of other specified parts of digestive tract; Z90.710 Acquired absence of both cervix and uterus; Z98.890 Other specified postprocedural states
CPT/HCPCS: 36415; 71046; 80053; 81001; 84484; 85025; 87040; 93005; 94640; 94761; 96374; 96375; 99284; J0696; J2060; J2930; J7611; J7644

== ENCOUNTER 2019-09-16 16:42 | Emergency (ER) | payer MEDICAID ==
[~2019-09-16] VITALS: Ht 147.3 cm; Wt 63.5 kg
[~2019-09-16 16:42] MED LIST changes: -AMLO10TA12 PO; +AMLO10TA13 PO; -LIS20T PO; -METF-370 PO
[2019-09-17 00:31] VITALS: BP 177/86
[2019-09-17 00:47] LABS: Basophils # (auto) 0.1 uL; Basophils % (auto) 0.8 % (0.0-2.0); Eosinophils # (auto) 0.3 uL; Eosinophils % (auto) 2.2 % (0.0-7.0); Hematocrit 39.6 % (36.0-46.0); Hemoglobin 13.2 g/dL (12.2-16.2); Lymphocytes # (auto) 4.7 uL; Lymphocytes % (auto) 36.2 % (10.0-50.0); Mean Corpuscular Hemoglobin 28.9 pg (28.0-32.0); Mean Corpuscular Hgb Conc. 33.3 g/dL (32.0-36.0); Mean Corpuscular Volume 86.7 fL (80.0-100.0); Monocytes # (auto) 0.9 uL; Neutrophils % (auto) 53.8 % (37.0-80.0); Nucleated Red Blood Cells % 0.1 %; Platelet Count (auto) 325 10^3/uL (140-450); Red Blood Cells 4.57 10^6/uL (4.0-5.20); White Blood Cell 12.9 10^3/uL (4.4-10.8)
[2019-09-17 01:07] LABS: Albumin 3.4 g/dL (3.4-5.0); BUN/Creatinine Ratio 28.5; Calcium 9.1 mg/dL (8.5-10.1); Potassium 4.1 mmol/L (3.5-5.1)
[2019-09-17 01:11] LABS: Bilirubin, Total 0.2 mg/dL (0.2-1.0); Total Protein 7.4 g/dL (6.4-8.2)
[2019-09-17 01:27] LABS: Urine Bacteria FEW /hpf (None Seen); Urine Blood Negative /uL (Negative); Urine Hyaline Cast FEW /lpf (0 - 2); Urine Mucus FEW (None Seen); Urine Specific Gravity 1.024 (1.001-1.035); Urine WBC 6 /hpf (0 - 5)
[2019-09-17] MEDS ORDERED: MORPHINE SULFATE 4 MG/ML SYR/VIAL IV ONE (02:00)
[2019-09-17] MEDS ORDERED: ONDANSETRON HCL 4 MG/2 ML VIAL IV ONE (02:00)
[2019-09-17] MEDS ORDERED: HYDR-4833 PO (22:57)
[2019-09-17] MEDS ORDERED: GLIP10TA9 PO (22:57)
[2019-09-17] MEDS ORDERED: BACL5TAB2 PO (22:57)
[2019-09-17] MEDS ORDERED: NIFE1TAB30 PO (22:57)
[2019-09-17] MEDS ORDERED: INSU1INJ19 SC (22:57)
[2019-09-17] MEDS ORDERED: GABA100C9 PO (22:57)
[2019-09-17] MEDS ORDERED: FOLI1TAB6 PO (22:57)
[2019-09-17] MEDS ORDERED: MAGN400T40 PO (22:57)
== END 2019-09-17 05:03 | disposition left against medical advice (07) ==
LOC: ER 16:42
DX: N28.9 Disorder of kidney and ureter, unspecified (principal); Q61.5 Medullary cystic kidney; M54.5 Low back pain; E11.22 Type 2 diabetes mellitus with diabetic chronic kidney disease; I12.9 Hypertensive chronic kidney disease with stage 1 through stage 4 chronic kidney disease, or unspecified chronic kidney disease; J44.9 Chronic obstructive pulmonary disease, unspecified; F17.210 Nicotine dependence, cigarettes, uncomplicated; E78.5 Hyperlipidemia, unspecified; Z90.49 Acquired absence of other specified parts of digestive tract; Z90.710 Acquired absence of both cervix and uterus; Z86.73 Personal history of transient ischemic attack (TIA), and cerebral infarction without residual deficits; Z88.6 Allergy status to analgesic agent; Z79.899 Other long term (current) drug therapy
CPT/HCPCS: 36415; 74176; 80053; 81001; 83690; 84484; 85025; 93005; 96374; 96375; 99284; J2270; J2405

== ENCOUNTER 2019-09-16 23:09 | Emergency (ER) | payer MEDICAID ==
[2019-09-17] MEDS ORDERED: FOLI1TAB6 PO (22:57)
[2019-09-17] MEDS ORDERED: NIFE1TAB30 PO (22:57)
[2019-09-17] MEDS ORDERED: BACL5TAB2 PO (22:57)
[2019-09-17] MEDS ORDERED: MAGN400T40 PO (22:57)
[2019-09-17] MEDS ORDERED: GLIP10TA9 PO (22:57)
[2019-09-17] MEDS ORDERED: GABA100C9 PO (22:57)
[2019-09-17] MEDS ORDERED: HYDR-4833 PO (22:57)
[2019-09-17] MEDS ORDERED: INSU1INJ19 SC (22:57)
== END 2019-09-16 23:20 | disposition left against medical advice (07) ==
LOC: ER 23:15
DX: R10.9 Unspecified abdominal pain (principal); Z53.21 Procedure and treatment not carried out due to patient leaving prior to being seen by health care provider

== ENCOUNTER 2019-09-17 17:04 | Inpatient (IN) | payer MEDICAID ==
[~2019-09-17] VITALS: Ht 147.3 cm; Wt 63.7 kg
[2019-09-17] MEDS ORDERED: SODIUM CHLORIDE 0.9% 1,000 ML IVB ONE (18:18)
[2019-09-17] MEDS ORDERED: KETOROLAC TROMETH 30 MG/ML 1ML VIAL IV ONE (18:30)
[2019-09-17] MEDS ORDERED: ONDANSETRON HCL 4 MG/2 ML VIAL IV ONE (18:30)
[2019-09-17 18:38] LABS: Urine Bacteria FEW /hpf (None Seen); Urine Blood TRACE /uL (Negative); Urine Mucus FEW (None Seen); Urine Specific Gravity 1.026 (1.001-1.035); Urine WBC 196 /hpf (0 - 5); Urine WBC Clumps PRESENT /hpf (None Seen)
[2019-09-17 18:55] LABS: Basophils # (auto) 0 uL; Basophils % (auto) 0.8 % (0.0-2.0); Eosinophils # (auto) 0.2 uL; Eosinophils % (auto) 3.7 % (0.0-7.0); Hematocrit 38.4 % (36.0-46.0); Hemoglobin 12.9 g/dL (12.2-16.2); Lymphocytes # (auto) 0.9 uL; Lymphocytes % (auto) 17.7 % (10.0-50.0); Mean Corpuscular Hemoglobin 30.6 pg (28.0-32.0); Mean Corpuscular Hgb Conc. 33.5 g/dL (32.0-36.0); Mean Corpuscular Volume 91.3 fL (80.0-100.0); Monocytes # (auto) 0.4 uL; Monocytes % (auto) 8.4 % (0.0-12.0); Neutrophils # (auto) 3.4 uL; Neutrophils % (auto) 69.4 % (37.0-80.0); Nucleated Red Blood Cells % 0.1 %; Platelet Count (auto) 264 10^3/uL (140-450); Red Blood Cells 4.21 10^6/uL (4.0-5.20); White Blood Cell 4.8 10^3/uL (4.4-10.8)
[2019-09-17 19:10] LABS: Albumin 3.4 g/dL (3.4-5.0); Calcium 8.5 mg/dL (8.5-10.1); Magnesium 1.8 mg/dL (1.6-2.6); Potassium 3.7 mmol/L (3.5-5.1)
[2019-09-17 19:12] LABS: BUN/Creatinine Ratio 21.7
[2019-09-17 19:23] LABS: Bilirubin, Total 0.3 mg/dL (0.2-1.0); Total Protein 7.4 g/dL (6.4-8.2)
[2019-09-17] MEDS ORDERED: cefTRIAXone 1GM/50ML D5W 50 ML IV ONE ×2 (19:45→20:30)
[2019-09-17] MEDS: SODIUM CHLORIDE 0.9% 1,000 ML IV SCH (20:11)
[2019-09-17] MEDS ORDERED: MORPHINE SULFATE 4 MG/ML SYR/VIAL IV PRN (20:15)
[2019-09-17] MEDS ORDERED: NITROGLYCERIN 0.4 MG SL TAB SL PRN (20:15)
[2019-09-17] MEDS ORDERED: DOCUSATE SOD 100 MG CAP PO PRN (20:15)
[2019-09-17] MEDS ORDERED: ONDANSETRON HCL 4 MG/2 ML VIAL IV PRN (20:15)
[2019-09-17] MEDS ORDERED: ACETAMINOPHEN 325 MG TAB PO PRN (20:15)
[2019-09-17] MEDS ORDERED: TAMSULOSIN HYDROCHLORIDE 0.4 MG CAP PO ONE (20:30)
[2019-09-17] MEDS ORDERED: PHENAZOPYRIDINE HCL 100 MG TAB PO ONE (20:30)
[2019-09-17] MEDS ORDERED: ATORVASTATIN 20 MG TAB PO SCH (22:00)
[2019-09-17] MEDS: BUDESONIDE (INHALATION) 0.5 MG/2 ML NEB HHN SCH (22:14)
[2019-09-17 22:21] VITALS: BP 193/89
[2019-09-17] MEDS: MORPHINE SULF INJ 2 MG/ML SYRINGE 1ML IV PRN (22:34)
[2019-09-17] MEDS: PANTOPRAZOLE 40 MG TAB PO SCH (22:34)
[2019-09-17] MEDS: METOPROLOL TARTRATE 25 MG TAB PO SCH (22:36)
[2019-09-17] MEDS ORDERED: HYDR-4833 PO (22:57)
[2019-09-17] MEDS ORDERED: MAGN400T40 PO (22:57)
[2019-09-17] MEDS ORDERED: INSU1INJ19 SC (22:57)
[2019-09-17] MEDS ORDERED: FOLI1TAB6 PO (22:57)
[2019-09-17] MEDS ORDERED: BACL5TAB2 PO (22:57)
[2019-09-17] MEDS ORDERED: GABA100C9 PO (22:57)
[2019-09-17] MEDS ORDERED: GLIP10TA9 PO (22:57)
[2019-09-17] MEDS ORDERED: NIFE1TAB30 PO (22:57)
[2019-09-18] MEDS: HYDROcodone-ACET 5/325MG TAB PO PRN ×2 (02:00→09:13)
[2019-09-18] MEDS: SODIUM CHLORIDE 0.9% 1,000 ML IV SCH ×2 (04:31→12:51)
[2019-09-18] MEDS: MORPHINE SULF INJ 2 MG/ML SYRINGE 1ML IV PRN (04:42)
[2019-09-18 06:10] VITALS: BP 150/67
[2019-09-18 06:38] LABS: Basophils # (auto) 0.1 uL; Basophils % (auto) 0.6 % (0.0-2.0); Eosinophils # (auto) 0.1 uL; Eosinophils % (auto) 1.5 % (0.0-7.0); Hematocrit 35.8 % (36.0-46.0); Hemoglobin 11.7 g/dL (12.2-16.2); Lymphocytes # (auto) 3.4 uL; Lymphocytes % (auto) 33.8 % (10.0-50.0); Mean Corpuscular Hemoglobin 28.9 pg (28.0-32.0); Mean Corpuscular Hgb Conc. 32.6 g/dL (32.0-36.0); Mean Corpuscular Volume 88.5 fL (80.0-100.0); Monocytes # (auto) 0.8 uL; Monocytes % (auto) 7.9 % (0.0-12.0); Neutrophils # (auto) 5.6 uL; Neutrophils % (auto) 56.2 % (37.0-80.0); Nucleated Red Blood Cells % 0.1 %; Platelet Count (auto) 269 10^3/uL (140-450); Red Blood Cells 4.04 10^6/uL (4.0-5.20); Red Cell Distribution Width 17.2 % (11.8-14.3)
[2019-09-18 06:51] LABS: Calcium 8.2 mg/dL (8.5-10.1)
[2019-09-18 06:56] LABS: Bilirubin, Total 0.4 mg/dL (0.2-1.0); Total Protein 6.2 g/dL (6.4-8.2)
[2019-09-18 06:58] LABS: BUN/Creatinine Ratio 26.5
[2019-09-18 08:55] VITALS: BP 165/82
[2019-09-18] MEDS ORDERED: cefTRIAXone 1GM/50ML D5W 50 ML IV SCH (09:00)
[2019-09-18] MEDS: PANTOPRAZOLE 40 MG TAB PO SCH (09:12)
[2019-09-18] MEDS: PHENAZOPYRIDINE HCL 100 MG TAB PO SCH ×2 (09:12→12:54)
[2019-09-18] MEDS: METOPROLOL TARTRATE 25 MG TAB PO SCH ×2 (09:15→13:53)
[2019-09-18] MEDS: BUDESONIDE (INHALATION) 0.5 MG/2 ML NEB HHN SCH (09:17)
[2019-09-18] MEDS ORDERED: ENOXAPARIN SOD 40 MG/0.4 ML SYRINGE SC SCH (10:00)
[2019-09-18] MEDS ORDERED: amLODIPine BESYLATE 5 MG TAB PO SCH (10:00)
[2019-09-18] MEDS ORDERED: LISINOPRIL 20 MG TAB PO SCH (10:00)
--- NOTE | 2019-09-18 10:00 | NUR ---
Respiratory note: SCHEDULED 1000 MEDNEB TX NOT GIVEN. PT SAYS SHE HAS HER OWN INHALER AND HAS ALREADY TAKEN IT THIS MORNING. EMAR CLEARED BY RN. WILL RETURN FOR NEXT SCHEDULED TX.
--- NOTE | 2019-09-18 10:30 | NUR ---
PT REPORTS THAT SHE WALKS FINE AND HAS NOT HAD ANY SYMPTOMS. PT DENIES NEED FOR P.T.
[2019-09-18] MEDS ORDERED: LACTULOSE 20Gm/30ML SOLN PO ONE (11:45)
[2019-09-18 12:09] VITALS: BP 191/91
--- NOTE | 2019-09-18 12:10 | NUR ---
ROUNDS PATIENT WENT OUTSIDE FOR A SMOKE.
--- NOTE | 2019-09-18 12:20 | NUR ---
elevated bp 191/91, patient is a&o x4 no s/s of distress noted/stated. IV fluids stopped. MD Castellano paged. Awaiting for call back.
--- NOTE | 2019-09-18 13:00 | NUR ---
Re-assessed BP 142/69. Patient is comfortable no c/o pain.
[2019-09-18 13:18] VITALS: BP 165/82
[2019-09-18] MEDS ORDERED: hydrALAZINE HCL 20 MG/ML VL IV PRN (13:45)
[2019-09-18] MEDS ORDERED: TAMSULOSIN HYDROCHLORIDE 0.4 MG CAP PO SCH (18:00)
== END 2019-09-18 13:50 | disposition home or self-care (01) | DRG 463 ==
LOC: ER 17:04 → TELE 17:05 → TELE-WESTW 22:01
PROVIDERS: ADMIT Internal Medicine; ATTEND Internal Medicine
DX: N10 Acute pyelonephritis (principal); E78.5 Hyperlipidemia, unspecified; N20.0 Calculus of kidney; F17.210 Nicotine dependence, cigarettes, uncomplicated; I10 Essential (primary) hypertension; Z80.3 Family history of malignant neoplasm of breast; Z82.49 Family history of ischemic heart disease and other diseases of the circulatory system; Z83.3 Family history of diabetes mellitus; Z87.442 Personal history of urinary calculi; Z90.710 Acquired absence of both cervix and uterus; Z88.8 Allergy status to other drugs, medicaments and biological substances; Z90.49 Acquired absence of other specified parts of digestive tract
CPT/HCPCS: 36415; 80053; 81001; 83735; 85025; 94640; G0378; J0696; J1885; J2405

== ENCOUNTER 2024-01-24 18:07 | Inpatient (IN) | payer OTHER, MEDICAID ==
[~2024-01-24] VITALS: Ht 147.3 cm; Wt 64.5 kg
[~2024-01-24 18:07] MED LIST changes: -AMLO10TA13 PO; +AMLO1TAB23 PO; +BACL5TAB2 PO; +FOLI-119 PO; +GABA-1308 PO; +GLIP10TA9 PO; +HYDR-4833 PO; +INSU1INJ19 SC; -LISI40TA PO; +LISI40TA16 PO; +MAGN400T40 PO; +NIFE1TAB30 PO
[2024-01-24 19:07] LABS: Urine Bacteria FEW /hpf (None Seen); Urine Blood TRACE /uL (Negative); Urine Clarity Turbid (Clear); Urine Color Yellow (Yellow); Urine Mucus FEW (None Seen); Urine Protein, UAD 3+ (Negative); Urine Specific Gravity 1.022 (1.001-1.035); Urine Urobilinogen Normal (Negative); Urine WBC 11 /hpf (0 - 5); Urine pH 5.5 (5.0-9.0)
[2024-01-24 19:49] LABS: Basophils # (auto) 0.1 10 ^3/uL (0-0.2); Basophils % (auto) 0.7 % (0.0-2.0); Eosinophils # (auto) 0.2 10 ^3/uL (0-0.8); Eosinophils % (auto) 1.3 % (0.0-7.0); Hematocrit 40.6 % (36.0-46.0); Lymphocytes # (auto) 2.7 10 ^3/uL (0.4-5.4); Lymphocytes % (auto) 21.7 % (10.0-50.0); Mean Corpuscular Hemoglobin 28.3 pg (28.0-32.0); Mean Corpuscular Volume 88.6 fL (80.0-100.0); Monocytes # (auto) 0.6 10 ^3/uL (0-1.3); Neutrophils # (auto) 8.8 10 ^3/uL (1.6-8.6); Neutrophils % (auto) 71.3 % (37.0-80.0); Red Blood Cells 4.58 10^6/uL (4.0-5.20); Red Cell Distribution Width 16.2 % (11.8-14.3); White Blood Cell 12.3 10^3/uL (4.4-10.8)
[2024-01-24 19:54] LABS: Chloride 110 mmol/L (98-107); Potassium 4.6 mmol/L (3.5-5.1); Sodium 138 mmol/L (136-145)
[2024-01-24 19:55] LABS: Anion Gap 9 (5-15); Carbon Dioxide 19 mmol/L (20-30)
[2024-01-24 20:00] LABS: Glucose 100 mg/dL (74-106)
[2024-01-24 20:01] LABS: BUN/Creatinine Ratio 11.7 (10.0-20.0); Blood Urea Nitrogen 36 mg/dL (9-23)
[2024-01-24] MEDS: KETOROLAC TROMETH 60MG/2ML VIAL IM ONE (21:35)
[2024-01-24] MEDS: ONDANSETRON ODT 4 MG TAB PO ONE (21:35)
[2024-01-24] MEDS ORDERED: NITROGLYCERIN 0.4 MG SL TAB SL PRN (22:30)
[2024-01-24] MEDS ORDERED: MORPHINE SULFATE INJ 2 MG/ml SYRG IV PRN (22:45)
[2024-01-24] MEDS: cefTRIAXone 1GM/50ML D5W 50 ML IV ONE (22:57)
[2024-01-24] MEDS: SOD CHL 0.45% 1,000 ML IV ONE (22:57)
[2024-01-25] MEDS: HYDROmorphone HCL 2 MG/ML VL/or syr IV ONE (01:10)
[2024-01-25 02:55] VITALS: PULSE 85; RESP 16; O2SAT 95
[2024-01-25] MEDS: cloNIDine HCL 0.1 MG TAB PO ONE (06:00)
[2024-01-25] MEDS: cloNIDine HCL 0.1 MG TAB ONE (06:01)
[2024-01-25] MEDS: ONDANSETRON HCL 4 MG/2 ML VIAL IV PRN (06:20)
[2024-01-25] MEDS: MORPHINE SULFATE INJ 2 MG/ml SYRG IV PRN ×2 (06:21→11:20)
[2024-01-25 06:26] LABS: Basophils # (auto) 0.1 10 ^3/uL (0-0.2); Basophils % (auto) 0.8 % (0.0-2.0); Eosinophils # (auto) 0.3 10 ^3/uL (0-0.8); Eosinophils % (auto) 2.3 % (0.0-7.0); Hemoglobin 12.2 g/dL (12.2-16.2); Lymphocytes # (auto) 2.8 10 ^3/uL (0.4-5.4); Mean Corpuscular Hemoglobin 29.1 pg (28.0-32.0); Monocytes % (auto) 8.7 % (0.0-12.0); Neutrophils # (auto) 7.2 10 ^3/uL (1.6-8.6); Neutrophils % (auto) 63.2 % (37.0-80.0); Nucleated Red Blood Cells % 0.1 %; Red Cell Distribution Width 15.6 % (11.8-14.3); White Blood Cell 11.4 10^3/uL (4.4-10.8)
[2024-01-25 06:40] LABS: INR 1.01 (0.9-1.15); Prothrombin Time 10.7 sec (9.3-11.8)
[2024-01-25 06:49] LABS: Alanine Aminotransferase 13 U/L (7-40); Albumin 4.3 g/dL (3.2-4.8); Alkaline Phosphatase 134 U/L (46-116); Anion Gap 9 (5-15); Aspartate Aminotransferase 10 U/L (13-40); BUN/Creatinine Ratio 14.9 (10.0-20.0); Calcium 9.4 mg/dL (8.7-10.4); Carbon Dioxide 21 mmol/L (20-30); Chloride 108 mmol/L (98-107); Glucose 76 mg/dL (74-106); Potassium 4.6 mmol/L (3.5-5.1); Sodium 138 mmol/L (136-145)
[2024-01-25] MEDS: hydrALAZINE HCL 20 MG/ML VL IV PRN (06:49)
[2024-01-25 06:50] LABS: Bilirubin, Total < 0.2 mg/dL (0.2-1.0); Total Protein 7.2 g/dL (5.7-8.2)
[2024-01-25 06:51] LABS: Blood Urea Nitrogen 49 mg/dL (9-23)
[2024-01-25 07:28] VITALS: PULSE 75; RESP 16; O2SAT 95
[2024-01-25] MEDS: cefTRIAXone 1GM/50ML D5W 50 ML IV SCH (10:28)
[2024-01-25] MEDS ORDERED: HYDROcodone-ACET 5/325MG TAB PO PRN (11:00)
[2024-01-25] MEDS: SODIUM CHLORIDE 0.9% 1,000 ML IV SCH (11:42)
[2024-01-25 15:53] VITALS: BP 161/79; PULSE 73; RESP 19; TEMP 98.3; O2SAT 96
[2024-01-25] MEDS: HYDROmorphone HCL 2 MG/ML VL/or syr IV PRN (16:05)
[2024-01-25] MEDS ORDERED: SEMA2INJ3 SC (18:06)
[2024-01-25] MEDS ORDERED: ESCI1TAB37 PO (18:39)
[2024-01-25] MEDS ORDERED: TRAZ-227 PO (18:39)
[2024-01-25] MEDS ORDERED: FLUT1INH2 IN (18:40)
[2024-01-25 18:57] VITALS: BP 136/73; PULSE 85; RESP 16
[2024-01-25 20:00] VITALS: BP 124/70; PULSE 85; PULSE 93; PULSE 96; RESP 18; TEMP 98.2; O2SAT 94
[2024-01-25 21:00] VITALS: BP 124/70; PULSE 93; RESP 18; TEMP 98.2; O2SAT 94
[2024-01-26] VITALS (14 sets, daily range): BP systolic 140–179; BP diastolic 66–81; PULSE 83–106; RESP 17–20; TEMP 98–98.7; O2SAT 94–98
[2024-01-26] MEDS: HYDROcodone-ACET 10/325MG TAB PO PRN (04:53)
[2024-01-26] MEDS: cloNIDine HCL 0.1 MG TAB PO ONE (05:24)
[2024-01-26 07:33] LABS: Chloride 112 mmol/L (98-107); Potassium 4.8 mmol/L (3.5-5.1); Sodium 139 mmol/L (136-145)
[2024-01-26 07:34] LABS: Anion Gap 7 (5-15); Calcium 8.8 mg/dL (8.5-10.1); Carbon Dioxide 20 mmol/L (20-30)
[2024-01-26 07:39] LABS: BUN/Creatinine Ratio 14.7 (10.0-20.0); Blood Urea Nitrogen 57 mg/dL (9-23); Glucose 106 mg/dL (74-106)
[2024-01-26] MEDS: NIFEdipine ER 30 MG TAB PO SCH (10:07)
[2024-01-26] MEDS: CARVEDILOL 12.5 MG TAB PO SCH (10:08)
[2024-01-26] MEDS ORDERED: ALBUTEROL SULF 2.5 MG/0.5ML(0.5%) NEB SOLN NEB PRN (12:15)
[2024-01-26] MEDS: FUROSEMIDE 40 MG/4 ML VIAL IV ONE (12:43)
[2024-01-26] MEDS: ATORVASTATIN 20 MG TAB PO SCH (21:39)
[2024-01-26] MEDS: HEPARIN SODIUM (PORCINE) 5000 UNITS/ML 1ML VIAL SC SCH (21:48)
[2024-01-27] VITALS (11 sets, daily range): BP systolic 137–163; BP diastolic 63–74; PULSE 74–83; RESP 17–20; TEMP 82–98.1; O2SAT 90–96
[2024-01-27 06:15] LABS: Basophils # (auto) 0.1 10 ^3/uL (0-0.2); Basophils % (auto) 0.5 % (0.0-2.0); Eosinophils # (auto) 0.3 10 ^3/uL (0-0.8); Eosinophils % (auto) 2.4 % (0.0-7.0); Hematocrit 32.8 % (36.0-46.0); Hemoglobin 10.4 g/dL (12.2-16.2); Lymphocytes # (auto) 2.8 10 ^3/uL (0.4-5.4); Lymphocytes % (auto) 25.3 % (10.0-50.0); Mean Corpuscular Hemoglobin 28.6 pg (28.0-32.0); Mean Corpuscular Hgb Conc. 31.8 g/dL (32.0-36.0); Mean Corpuscular Volume 89.9 fL (80.0-100.0); Monocytes # (auto) 0.7 10 ^3/uL (0-1.3); Monocytes % (auto) 6.7 % (0.0-12.0); Neutrophils # (auto) 7.1 10 ^3/uL (1.6-8.6); Neutrophils % (auto) 65.1 % (37.0-80.0); Red Blood Cells 3.65 10^6/uL (4.0-5.20); Red Cell Distribution Width 16.6 % (11.8-14.3); White Blood Cell 10.9 10^3/uL (4.4-10.8)
[2024-01-27 06:24] LABS: Chloride 113 mmol/L (98-107); Potassium 4.7 mmol/L (3.5-5.1); Sodium 141 mmol/L (136-145)
[2024-01-27 06:25] LABS: Anion Gap 8 (5-15); Calcium 8.7 mg/dL (8.7-10.4); Carbon Dioxide 20 mmol/L (20-30)
[2024-01-27 06:30] LABS: BUN/Creatinine Ratio 16.1 (10.0-20.0); Blood Urea Nitrogen 61 mg/dL (9-23); Glucose 100 mg/dL (74-106)
[2024-01-27] MEDS ORDERED: NIFE1TAB31 PO (19:49)
[2024-01-27] MEDS ORDERED: CARV-216 PO (19:49)
[2024-01-27] MEDS ORDERED: ATOR40TA52 PO (19:49)
[2024-01-27] MEDS ORDERED: CIPR500T4 PO (19:51)
[2024-01-27] MEDS: FUROSEMIDE 40 MG/4 ML VIAL ONE (20:18)
[2024-01-28] VITALS (7 sets, daily range): BP systolic 118–154; BP diastolic 67–78; PULSE 76–89; RESP 16–20; TEMP 97.5–98.6; O2SAT 94–96
[2024-01-28 09:14] LABS: Basophils # (auto) 0.1 10 ^3/uL (0-0.2); Basophils % (auto) 1.1 % (0.0-2.0); Eosinophils # (auto) 0.3 10 ^3/uL (0-0.8); Eosinophils % (auto) 2.7 % (0.0-7.0); Hematocrit 33.7 % (36.0-46.0); Hemoglobin 10.6 g/dL (12.2-16.2); Lymphocytes # (auto) 2.8 10 ^3/uL (0.4-5.4); Lymphocytes % (auto) 24.2 % (10.0-50.0); Mean Corpuscular Hemoglobin 28.1 pg (28.0-32.0); Mean Corpuscular Hgb Conc. 31.5 g/dL (32.0-36.0); Mean Corpuscular Volume 89.1 fL (80.0-100.0); Monocytes # (auto) 0.7 10 ^3/uL (0-1.3); Monocytes % (auto) 6.3 % (0.0-12.0); Neutrophils # (auto) 7.7 10 ^3/uL (1.6-8.6); Neutrophils % (auto) 65.7 % (37.0-80.0); Nucleated Red Blood Cells % 0.1 %; Red Blood Cells 3.78 10^6/uL (4.0-5.20); Red Cell Distribution Width 16.5 % (11.8-14.3); White Blood Cell 11.7 10^3/uL (4.4-10.8)
[2024-01-28 09:39] LABS: Alanine Aminotransferase 14 U/L (7-40); Alkaline Phosphatase 113 U/L (46-116); Anion Gap 9 (5-15); Aspartate Aminotransferase < 8 U/L (13-40); BUN/Creatinine Ratio 13.5 (10.0-20.0); Carbon Dioxide 20 mmol/L (20-30); Chloride 110 mmol/L (98-107); Glucose 141 mg/dL (74-106); Potassium 4.4 mmol/L (3.5-5.1); Sodium 139 mmol/L (136-145)
[2024-01-28 09:40] LABS: Bilirubin, Total < 0.2 mg/dL (0.2-1.0); Blood Urea Nitrogen 44 mg/dL (9-23); Total Protein 6.4 g/dL (5.7-8.2)
== END 2024-01-28 10:49 | disposition home or self-care (01) | DRG 690 ==
LOC: ER 18:09 → OVERFLOW 22:31 → TELE-EAST 01-25 15:43 → EAST 01-26 02:40 → TELE-EAST 01-26 09:24
PROVIDERS: ADMIT Internal Medicine; ATTEND Student in an Organized Health Care Education/Training Program
DX: N12 Tubulo-interstitial nephritis, not specified as acute or chronic (principal); N17.0 Acute kidney failure with tubular necrosis; E86.1 Hypovolemia; N28.1 Cyst of kidney, acquired; F17.210 Nicotine dependence, cigarettes, uncomplicated; I25.10 Atherosclerotic heart disease of native coronary artery without angina pectoris; N18.32 Chronic kidney disease, stage 3b; J44.9 Chronic obstructive pulmonary disease, unspecified; E78.00 Pure hypercholesterolemia, unspecified; Z82.49 Family history of ischemic heart disease and other diseases of the circulatory system; Z95.1 Presence of aortocoronary bypass graft; Z87.442 Personal history of urinary calculi; Z90.49 Acquired absence of other specified parts of digestive tract; Z88.8 Allergy status to other drugs, medicaments and biological substances; Z90.710 Acquired absence of both cervix and uterus; I12.9 Hypertensive chronic kidney disease with stage 1 through stage 4 chronic kidney disease, or unspecified chronic kidney disease; Z83.3 Family history of diabetes mellitus; Z80.3 Family history of malignant neoplasm of breast; Z82.3 Family history of stroke; Z79.51 Long term (current) use of inhaled steroids; Z79.899 Other long term (current) drug therapy; Q63.2 Ectopic kidney
CPT/HCPCS: 36415; 74176; 76775; 78707; 80048; 80053; 81001; 82962; 84100; 84484; 85025; 85610; 87086; 93005; 93306; 96361; 96365; 96366; 96367; 96372; 96375; 96376; 99291; 99292; G0378; J1885; J2405; Q0162

== ENCOUNTER 2024-06-29 08:55 | Inpatient (IN) | payer OTHER, MEDICAID ==
[~2024-06-29] VITALS: Ht 147.3 cm; Wt 71.8 kg
[~2024-06-29 08:55] MED LIST changes: -AMLO1TAB23 PO; -ATOR20TA50 PO; +ATOR40TA52 PO; -BACL5TAB2 PO; +CARV-216 PO; +CIPR500T4 PO; +ESCI1TAB37 PO; +FLUT1INH2 IN; -FOLI-119 PO; -GABA-1308 PO; -GLIP10TA9 PO; -INSU1INJ19 SC; -LISI40TA16 PO; +LOSA-533 PO; -MET25T PO; -NIFE1TAB30 PO; +NIFE1TAB31 PO; +SEMA2INJ3 SC; +TIZA1TAB20 PO; +TRAZ-227 PO
--- NOTE | 2024-06-29 09:38 | ED.PDOC ---
SOB-HPI HPI Comments 63-year-old female presents to the ED with a chief complaint of SOB x 3 days with cough, nausea, and vomiting. Patient denies any chest pain, diarrhea, headache, abdominal pain, or rectal bleeding. Patient is speaking in full sentences, sating at 97% on room air, respirations are even and unlabored. 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 History Family History Family History: Family hx of HTN Social History Smoker: Cigarettes, Less Than 1 Pack/Day Alcohol: Occasionally Drugs: Denies Drug Use Lives In: Home Constitutional: denies: chills, diaphoresis, fatigue, fever, malaise, sweats, weakness, others EENTM: denies: blurred vision, double vision, ear bleeding, ear discharge, ear drainage, ear pain, ear ringing, eye pain, eye redness, hearing loss, mouth pain, mouth swelling, nasal discharge, nose bleeding, nose congestion, nose pain, photophobia, tearing, throat pain, throat swelling, voice changes, others Respiratory: reports: cough, shortness of breath; denies: hemoptysis, orthopnea, SOB at rest, SOB with excertion, stridor, wheezing, others Cardiovascular: denies: chest pain, dizzy spells, diaphoresis, Dyspnea on exe rtion, edema, irregular heart beat, left arm pain, lightheadedness, palpitations, PND, syncope, others Gastrointestinal: reports: nausea, vomiting; denies: abdomen distended, abdominal pain, blood streaked bowels, constipated, diarrhea, dysphagia, difficulty swallowing, hematemesis, melena, poor appetite, poor fluid intake, rectal bleeding, rectal pain, others Genitourinary: denies: abnormal vagina bleeding, burning, dyspareunia, dysuria, flank pain, frequency, hematuria, incontinence, pain, , vagina discharge, urgency, others Neurological: denies: dizziness, fainting, headache, left sided numbness, left sided weakness, numbness, paresthesia, pre-existing deficit, right sided numbness, right sided weakness, seizure, speech problems, tingling, tremors, weakness, others Musculoskeletal: denies: back pain, gout, joint pain, joint swelling, muscle pain, muscle stiffness, neck pain, others Integumetry: denies: bruises, change in color, change in hair/nails, dryness, laceration, lesions, lumps, rash, wounds, others Allergic/Immunocompromised: denies: Difficulty Healing, Frequent Infections, Hives, Itching, others Hematologic/Lymphatic: denies: anemia, blood clots, easy bleeding, easy bruisin g, swollen glands, others Endocrine: denies: excessive hunger, excessive sweating, excessive thirst, excessive urination, flushing, intolerance to cold, intolerance to heat, unexplained weight gain, unexplained weight loss, others Psychiatric: denies: anxiety, bipolar disorder, depression, hopeless, panic disorder, schizophrenia, sleepless, suicidal, others All Other Systems: Reviewed and Negative Physical Exam General Appearance: Moderate Distress, Obese HEENT: Normal ENT Inspection, PERRL/EOMI, Pharynx Normal, TMs Normal Neck: Full Range of Motion, Non-Tender, Normal, Normal Inspection Respiratory: Chest Non-Tender, Lungs Clear, No Accessory Muscle Use, No Respiratory Distress, Normal Breath Sounds Cardiovascular: No Edema, No JVD, No Murmur, No Gallop, Normal Peripheral Pulses, Regular Rate/Rhythm, Tachycardia Breast Exam: Deferred Gastrointestinal: No Organomegaly, Non Tender, No Pulsatile Mass, Normal Bowel Sounds, Soft Genitalia: Deferred Pelvic: Deferred Rectal: Deferred Extremities: No calf tenderness, Normal capillary refill, Normal inspection, Normal range of motion, Non-tender, No pedal edema Musculoskeletal : Apperance: Normal Neurologic: Alert, tip tester II-XII nml as Tested, Headache, No Motor Deficits, Normal Affect, Normal Mood, No Sensory Deficits Cerebellar Function: Normal Reflexes: Normal Skin: Dry, Normal Color, Warm Peripheral Pulses: 1+ carotid (R), 1+ carotid (L) Lymphatic: No Adenopathy EKG EKG : Pulse Rate (adult): 110 [place]: Normal Cardiac Rhythm: ST Hypertrophy: LVH ST: Inf, Ant, Lat, Ischemia Was a procedure done? Was a procedure done?: No Differential Dx Differential Diagnosis: Anxiety, CHF, COPD, Dysrhythmia, Hypertension, Hyperventilation, Hyponatremia, Myocardial infarction, Pneumonia X-Ray, Labs, Meds, VS Vital Signs Date Time Temp Pulse Resp B/P (MAP) Pulse Ox O2 Delivery O2 Flow Rate FiO2 06/29/24 11:27 212/80 06/29/24 11:15 73 212/80 06/29/24 11:15 212/80 06/29/24 11:00 66 16 212/80 (124) 96 06/29/24 10:56 110 06/29/24 10:15 101 243/132 06/29/24 10:08 243/132 06/29/24 09:40 95 26 93 Room Air* 0 21 06/29/24 09:40 94 26 243/152 (182) 93 06/29/24 09:26 108 26 243/132 (169) 94 06/29/24 09:14 110 06/29/24 09:13 98.6 99 16 233/108 (149) 97 Lab Test 06/29/24 11:23 06/29/24 10:30 06/29/24 10:16 Range/Units Sodium Level 142 136-145 mmol/L Potassium Level 5.3 H 3.5-5.1 mmol/L Chloride Level 114 H 98-107 mmol/L Carbon Dioxide Level 20 20-31 mmol/L Anion Gap 8 5-15 Blood Urea Nitrogen 37 H 9-23 mg/dL Creatinine 2.52 H 0.550-1.02 mg/dL Glomerular Filtration Rate Calc 21 >90 mL/min BUN/Creatinine Ratio 14.7 10.0-20.0 Serum Glucose 104 74-106 mg/dL Calcium Level 9.7 8.7-10.4 mg/dL Magnesium Level 2.2 1.6-2.6 mg/dL Total Bilirubin 0.3 0.2-1.0 mg/dL Aspartate Amino Transferase (AST) 16 13-40 U/L Alanine Aminotransferase (ALT) 23 7-40 U/L Alkaline Phosphatase 113 46-116 U/L Total Protein 7.7 5.7-8.2 g/dL Albumin 4.2 3.2-4.8 g/dL Urine Color Light-yellow Yellow Urine Clarity Cloudy H Clear Urine pH 6.5 5.0-9.0 Urine Specific [place] 1.017 1.001-1.035 Urine Protein 3+ H Negative Urine Ketones Negative Negative Urine Blood 1+ H Negative /uL Urine Nitrite 2+ H Negative Urine Bilirubin Negative Negative Urine Urobilinogen Normal Negative mg/dL Urine Leukocyte Esterase 3+ Negative /uL Urine RBC 5 0 - 4 /hpf Urine WBC 47 0 - 5 /hpf Urine Squamous Epithelial Cells Few <5 /hpf Urine Bacteria Few H None Seen /hpf Urine Glucose 1+ H Normal mg/dL White Blood Count 12.9 H 4.4-10.8 10^3/uL Red Blood Count 3.82 L 4.0-5.20 10^6/uL Hemoglobin 10.8 L 12.2-16.2 g/dL Hematocrit 34.0 L 36.0-46.0 % Mean Corpuscular Volume 89.0 80.0-100.0 fL Mean Corpuscular Hemoglobin 28.4 28.0-32.0 pg Mean Corpuscular Hemoglobin Concent 31.9 L 32.0-36.0 g/dL Red Cell Distribution Width 16.3 H 11.8-14.3 % Platelet Count 400 140-450 10^3/uL Mean Platelet Volume 8.5 6.9-10.8 fL Neutrophils (%) (Auto) 79.3 37.0-80.0 % Lymphocytes (%) (Auto) 12.7 10.0-50.0 % Monocytes (%) (Auto) 5.5 0.0-12.0 % Eosinophils (%) (Auto) 1.6 0.0-7.0 % Basophils (%) (Auto) 0.9 0.0-2.0 % Neutrophils # (Auto) 10.3 H 1.6-8.6 10 ^3/uL Lymphocytes # (Auto) 1.6 0.4-5.4 10 ^3/uL Monocytes # (Auto) 0.7 0-1.3 10 ^3/uL Eosinophils # (Auto) 0.2 0-0.8 10 ^3/uL Basophils # (Auto) 0.1 0-0.2 10 ^3/uL Nucleated Red Blood Cells 0.0 % Troponin I High Sensitivity 404 *H </=34 ng/L Thyroid Stimulating Hormone (TSH) 1.93 0.55-4.78 uIU/mL Current Medications Medications (Trade) Dose Ordered Sig/Taina Route Start Time Stop Time Status Last Admin Clonidine HCl (Catapres Tablet) 0.2 mg ONCE ONCE PO 06/29/24 09:45 06/29/24 09:46 DC 06/29/24 10:08 Labetalol HCl (Labetalol HCl) 20 mg ONCE ONCE IV 06/29/24 09:45 06/29/24 09:46 DC 06/29/24 10:15 Aspirin 162 mg ONCE ONCE PO 06/29/24 09:45 06/29/24 09:46 DC 06/29/24 10:08 Sodium Chloride 1,000 ml @ 150 mls/hr Q6H40M ONCE IV 06/29/24 09:45 06/29/24 16:24 06/29/24 10:12 Ondansetron HCl (Zofran) 4 mg ONCE ONCE IV 06/29/24 11:30 06/29/24 11:31 DC 06/29/24 11:27 Hydralazine HCl (Apresoline Injection) 10 mg ONCE ONCE IV 06/29/24 11:30 06/29/24 11:31 DC 06/29/24 11:27 X-Ray, Labs, Meds, VS Comment Course In the emergency department eventful patient came in because of shortness of breath and chest pain The pressure 233/130 Chest x-ray is normal EKG shows sinus tachycardia at 110 with left ventricular hypertrophy [place] [address] with 79.3% neutrophils H&H 10.8 and 34 Troponin elevated at 404 TSH 1.93 CMP potassium at 5.3 GFR 21 Magnesium 2.2 Urine shows 3+ protein 1+ blood 2+ nitrites 3+ leukocyte esterase 1+ glucose Patient will be admitted for further care Time of 1ST Reevaluation: 10:02 Reevaluation 1ST: Unchanged Time of 2ND Reevaluation: 11:58 Reevaluation 2ND: Improved Patient Education/Counseling: Diagnosis, Treatment, Prognosis Family Education/Counseling: Diagnosis, Treatment, Prognosis, No Family Present Departure 1 Departure Time of Disposition: 12:00 Impression: Primary Impression: Acute coronary syndrome Additional Impressions: Malignant hypertension Diabetic nephropathy Qualified Codes: E11.21 - Type 2 diabetes mellitus with diabetic nephropathy Ischemic heart disease Anemia Qualified Codes: D64.9 - Anemia, unspecified UTI (urinary tract infection) Elevated troponin Anemia in chronic kidney disease Disposition: ADMITTED INPATIENT Condition: Guarded Critical Care Note Critical Care Time?: Yes (30 min-critical care time only) Stability Stability form required: Yes Unstable for transfer: Telemetry monitoring (Telemetry monitoring required), Requires medication (Requires Med for stabilization) Heart Score Heart Score: Heart Score Response (Comments) Value History Moderate Suspicious 1 EKG Repolarization Disturb 1 Age >65 2 Risk Factors >3 or Hx ASHD 2 Troponin >3 x's Normal limit 2 Total 8 I personally scribed for MELVI CARRILLO MD ([email or web address]) on 06/29/24 at 09:38. Electronically submitted by Calixto Sanchez ([email or web address]). MELVI CARRILLO MD Jun 29, 2024 09:38
[2024-06-29 09:40] VITALS: PULSE 95; RESP 26; O2SAT 93
[2024-06-29] MEDS: cloNIDine HCL 0.1 MG TAB PO ONE (10:08)
[2024-06-29] MEDS: ASPirin 81 mg TAB PO ONE (10:08)
[2024-06-29] MEDS: SODIUM CHLORIDE 0.9% 1,000 ML IV ONE (10:12)
[2024-06-29] MEDS: LABETALOL HCL 20 MG/4 ML VL IV ONE (10:15)
[2024-06-29 10:32] LABS: Basophils # (auto) 0.1 10 ^3/uL (0-0.2); Basophils % (auto) 0.9 % (0.0-2.0); Eosinophils # (auto) 0.2 10 ^3/uL (0-0.8); Eosinophils % (auto) 1.6 % (0.0-7.0); Hemoglobin 10.8 g/dL (12.2-16.2); Lymphocytes # (auto) 1.6 10 ^3/uL (0.4-5.4); Lymphocytes % (auto) 12.7 % (10.0-50.0); Mean Corpuscular Hemoglobin 28.4 pg (28.0-32.0); Mean Corpuscular Hgb Conc. 31.9 g/dL (32.0-36.0); Monocytes # (auto) 0.7 10 ^3/uL (0-1.3); Monocytes % (auto) 5.5 % (0.0-12.0); Neutrophils # (auto) 10.3 10 ^3/uL (1.6-8.6); Neutrophils % (auto) 79.3 % (37.0-80.0); Platelet Count (auto) 400 10^3/uL (140-450); Red Blood Cells 3.82 10^6/uL (4.0-5.20); Red Cell Distribution Width 16.3 % (11.8-14.3); White Blood Cell 12.9 10^3/uL (4.4-10.8)
[2024-06-29 10:45] LABS: Total Protein 7.7 g/dL (5.7-8.2)
--- NOTE | 2024-06-29 11:03 | DVH ---
XY CHEST TWO VIEWS ROUTINE CLINICAL HISTORY: Uncontrolled hypertension COMPARISON: None TECHNIQUE: Frontal and lateral view of the chest was obtained FINDINGS: Lines and Tubes: None Lungs: No focal consolidation. Pleura: No effusion. No pneumothorax. Cardiomediastinal contours: Unremarkable Bones: Median sternotomy. IMPRESSION: No acute cardiopulmonary disease.
[2024-06-29 11:12] LABS: Urine Bacteria FEW /hpf (None Seen); Urine Blood 1+ /uL (Negative); Urine Protein, UAD 3+ (Negative); Urine Specific Gravity 1.017 (1.001-1.035); Urine Urobilinogen Normal (Negative); Urine WBC 47 /hpf (0 - 5); Urine pH 6.5 (5.0-9.0)
[2024-06-29 11:13] LABS: Urine Clarity Cloudy (Clear); Urine Color Light-Yellow (Yellow)
[2024-06-29] MEDS: hydrALAZINE HCL 20 MG/ML VL IV ONE (11:27)
[2024-06-29] MEDS: ONDANSETRON HCL 4 MG/2 ML VIAL IV ONE ×2 (11:27→13:03)
[2024-06-29 11:38] LABS: Chloride 114 mmol/L (98-107); Potassium 5.3 mmol/L (3.5-5.1); Sodium 142 mmol/L (136-145)
[2024-06-29 11:41] LABS: Anion Gap 8 (5-15); Calcium 9.7 mg/dL (8.7-10.4); Carbon Dioxide 20 mmol/L (20-31)
[2024-06-29 11:46] LABS: Glucose 104 mg/dL (74-106)
[2024-06-29 11:47] LABS: Alkaline Phosphatase 113 U/L (46-116); BUN/Creatinine Ratio 14.7 (10.0-20.0); Blood Urea Nitrogen 37 mg/dL (9-23); Magnesium 2.2 mg/dL (1.6-2.6)
[2024-06-29 11:48] LABS: Alanine Aminotransferase 23 U/L (7-40); Albumin 4.2 g/dL (3.2-4.8); Aspartate Aminotransferase 16 U/L (13-40)
[2024-06-29 11:49] LABS: Bilirubin, Total 0.3 mg/dL (0.2-1.0)
[2024-06-29] MEDS: MORPHINE SULFATE 4 MG/ML SYR/VIAL IV ONE (13:04)
[2024-06-29] MEDS: cefTRIAXone 1GM/50ML D5W 50 ML IV ONE (13:27)
[2024-06-29 14:20] VITALS: BP 181/74; PULSE 84; RESP 20; O2SAT 98
[2024-06-29] MEDS ORDERED: DEXTROSE (50%) 50ML SYRG IV PRN (14:30)
[2024-06-29] MEDS ORDERED: IPRATROPIUM BROM 0.5 MG/2.5ML INH SOL NEB SCH (14:30)
[2024-06-29] MEDS ORDERED: ACETAMINOPHEN 325 MG TAB PO PRN (14:30)
--- NOTE | 2024-06-29 14:36 | DVHINCON2 ---
Date of service: Jun 29, 2024 History of Present Illness HPI Patient is a 63-year-old female with past medical history of triple bypass CABG 1 and half years prior, history of hypertension, history of 1 kidney with CKD stage III, COPD, history of type 2 diabetes who presents with progressively worsening shortness of breath with wheezing for 2 days and onset of midsternal chest pain with radiation to the left arm that began this morning. Patient notes that she ran out of her inhaler medications. She notes that she is experience significant wheezing. With regards to her chest pain, she notes that this is different in nature from her shortness of breath and began this morning. On arrival to the ER patient's blood pressure was noted to be elevated into the 200s systolic blood pressure. Laboratory findings were notable for troponin of 404 which increased to 414. Patient was admitted for COPD exacerbation and NSTEMI. Home Meds Past Medical History reviewed Family History: Cerebrovascular accident (CVA) GRANDMOM GRANDFATHER FHx: breast cancer GRANDMOM Family history: Diabetes mellitus G8 MOTHER Family history: Hypertension G8 MOTHER Allergies: Coded Allergies: Diphenhydramine (Verified Allergy, Unknown, 08/01/14) Home Meds Active Scripts Ciprofloxacin Hcl (Ciprofloxacin Hcl) 500 Mg Tab, 500 MG PO DAILY for 5 Days, #5 TAB 0 Refills Prov:RADHA STEVENS DO 01/27/24 Atorvastatin Calcium (ATORVASTATIN CALCIUM) 40 Mg Tab, 40 MG PO DAILY for 30 Days, #30 TAB 1 Refill Prov:RADHA STEVENS DO 01/27/24 Nifedipine (Nifedipine Er) 30 Mg Tab, 30 MG PO DAILY for 60 Days, #60 TAB Prov:RADHA STEVENS DO 01/27/24 Carvedilol (COREG) 12.5 Mg Tab, 12.5 MG PO Q12HR for 30 Days, #60 TAB 0 Refills Prov:RADHA STEVENS DO 01/27/24 Pantoprazole Sodium Sesquihydr (Pantoprazole Sodium) 40 Mg Tab, 40 MG PO BID, #120 TAB Prov:ZECHARIAH RODAS MD 01/09/17 Fluticasone Propionate (FLOVENT HFA 110Mcg INH) 110 Mcg Ih, 2 PUFF INH BID, #1 INHALER 0 Refills Prov:ZECHARIAH RODAS MD 8/28/15 Reported Medications Fluticasone Furoate (Inhalatio (Arnuity Ellipta) 100 Mcg/Act Inh, 100 MCG IN DAILY, INHALER 01/25/24 Escitalopram Oxalate (ESCITALOPRAM OXALATE) 20 Mg Tab, 20 MG PO DAILY, TAB 01/25/24 Trazodone Hcl (Trazodone Hcl) 50 Mg Tab, 50 MG PO HS, MG 01/25/24 Semaglutide (Ozempic) 2 Mg/3 Ml Inj, 0.5 MG SC week, INJ 01/25/24 Magnesium Oxide (MAGNESIUM OXIDE) 400 Mg Tab, 1 TAB PO DAILY, #30 TAB 5 Refills 09/17/19 Hydrocodone-Acetaminophen ([place] 5/325MG) 1 Tab Tb, 1 TAB PO TID, #90 TAB 09/17/19 Current Medications Current Medications Medications (Trade) Dose Ordered Sig/Taina Route PRN Reason Start Time Stop Time Status Last Admin Acetaminophen (Tylenol Tablet) 325 mg Q4HP PRN PO MILD PAIN (1-3 PAIN SCALE) 06/29/24 14:30 UNV Acetaminophen/ Hydrocodone Bitart ([place] 5/325MG Tab) 1 tab Q4HP PRN PO MODERATE PAIN (4-6 PAIN SCALE) 06/29/24 14:30 UNV Ondansetron HCl (Zofran) 4 mg Q4HP PRN IV NAUSEA / VOMITING 06/29/24 14:30 UNV Morphine Sulfate 2 mg Q4HPRN PRN IV SEVERE PAIN (7-10 PAIN SCALE) 06/29/24 14:30 UNV Diagnostic Test (Pha) (Accu-Chek Comfort Curve T) 1 strip ACHS 06/29/24 17:00 UNV Insulin Human Regular (InsuLIN R) ACHS SC 06/29/24 17:00 UNV Dextrose 50 ml UD PRN IV Blood Sugar LESS THAN 60 06/29/24 14:30 UNV Nitroglycerin (Ntrostat Sublingual) 0.4 mg Q5MINP PRN SL FOR CHEST PAIN 06/29/24 14:30 UNV Morphine Sulfate 2 mg Q30M PRN IV FOR CHEST PAIN 06/29/24 14:30 UNV Heparin Sodium/ Dextrose 250 ml @ 7.476 mls/ hr Q24H IV 06/29/24 14:30 UNV Ipratropium [place] (Atrovent Medneb) 0.5 mg Q6HR NEB 06/29/24 14:30 UNV Albuterol (Ventolin Medneb) 2.5 mg Q6HR NEB 06/29/24 18:00 UNV Methylprednisolone Sodium Succinate (Solu Medrol) 125 mg DAILY IV 06/29/24 14:30 UNV Ceftriaxone Sodium 50 ml @ 100 mls/hr DAILY IV 06/29/24 14:45 UNV Review of Systems 10 pt ros otherwise negative Vital Signs Vital Signs Date Time Temp Pulse Resp B/P (MAP) Pulse Ox O2 Delivery O2 Flow Rate FiO2 06/29/24 14:00 65 14 185/80 (115) 95 06/29/24 09:40 Room Air* 0 21 06/29/24 09:13 98.6 Physical Exam nad s1 s2 rrr ctab soft nt/nd Labs/Diagnostic Data Labs Test 06/29/24 13:38 06/29/24 11:23 06/29/24 10:30 06/29/24 10:16 Range/Units Troponin I High Sensitivity 414 *H </=34 ng/L Sodium Level 142 136-145 mmol/L Potassium Level 5.3 H 3.5-5.1 mmol/L Chloride Level 114 H 98-107 mmol/L Carbon Dioxide Level 20 20-31 mmol/L Anion Gap 8 5-15 Blood Urea Nitrogen 37 H 9-23 mg/dL Creatinine 2.52 H 0.550-1.02 mg/dL Glomerular Filtration Rate Calc 21 >90 mL/min BUN/Creatinine Ratio 14.7 10.0-20.0 Serum Glucose 104 74-106 mg/dL Calcium Level 9.7 8.7-10.4 mg/dL Magnesium Level 2.2 1.6-2.6 mg/dL Total Bilirubin 0.3 0.2-1.0 mg/dL Aspartate Amino Transferase (AST) 16 13-40 U/L Alanine Aminotransferase (ALT) 23 7-40 U/L Alkaline Phosphatase 113 46-116 U/L Total Protein 7.7 5.7-8.2 g/dL Albumin 4.2 3.2-4.8 g/dL Urine Color Light-yellow Yellow Urine Clarity Cloudy H Clear Urine pH 6.5 5.0-9.0 Urine Specific [place] 1.017 1.001-1.035 Urine Protein 3+ H Negative Urine Ketones Negative Negative Urine Blood 1+ H Negative /uL Urine Nitrite 2+ H Negative Urine Bilirubin Negative Negative Urine Urobilinogen Normal Negative mg/dL Urine Leukocyte Esterase 3+ Negative /uL Urine RBC 5 0 - 4 /hpf Urine WBC 47 0 - 5 /hpf Urine Squamous Epithelial Cells Few <5 /hpf Urine Bacteria Few H None Seen /hpf Urine Glucose 1+ H Normal mg/dL White Blood Count 12.9 H 4.4-10.8 10^3/uL Red Blood Count 3.82 L 4.0-5.20 10^6/uL Hemoglobin 10.8 L 12.2-16.2 g/dL Hematocrit 34.0 L 36.0-46.0 % Mean Corpuscular Volume 89.0 80.0-100.0 fL Mean Corpuscular Hemoglobin 28.4 28.0-32.0 pg Mean Corpuscular Hemoglobin Concent 31.9 L 32.0-36.0 g/dL Red Cell Distribution Width 16.3 H 11.8-14.3 % Platelet Count 400 140-450 10^3/uL Mean Platelet Volume 8.5 6.9-10.8 fL Neutrophils (%) (Auto) 79.3 37.0-80.0 % Lymphocytes (%) (Auto) 12.7 10.0-50.0 % Monocytes (%) (Auto) 5.5 0.0-12.0 % Eosinophils (%) (Auto) 1.6 0.0-7.0 % Basophils (%) (Auto) 0.9 0.0-2.0 % Neutrophils # (Auto) 10.3 H 1.6-8.6 10 ^3/uL Lymphocytes # (Auto) 1.6 0.4-5.4 10 ^3/uL Monocytes # (Auto) 0.7 0-1.3 10 ^3/uL Eosinophils # (Auto) 0.2 0-0.8 10 ^3/uL Basophils # (Auto) 0.1 0-0.2 10 ^3/uL Nucleated Red Blood Cells 0.0 % Thyroid Stimulating Hormone (TSH) 1.93 0.55-4.78 uIU/mL Assessment nstemi severe HTN WARREN on ckd stage IV to V htn hl Plan/Recommendation heparin gtt asa statin echo renal eval jialey candidate for LHC unless pt agrees to 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
[2024-06-29] MEDS: cefTRIAXone 1GM/50ML D5W 50 ML IV SCH (14:45)
--- NOTE | 2024-06-29 14:56 | DVHHP2 ---
Admitting Diagnosis: NSTEMI History of Present Illness HPI Patient is a 63-year-old female with past medical history of triple bypass CABG 1 and half years prior, history of hypertension, history of 1 kidney with CKD stage III, COPD, history of type 2 diabetes who presents with progressively worsening shortness of breath with wheezing for 2 days and onset of midsternal chest pain with radiation to the left arm that began this morning. Patient notes that she ran out of her inhaler medications. She notes that she is experience significant wheezing. With regards to her chest pain, she notes that this is different in nature from her shortness of breath and began this morning. On arrival to the ER patient's blood pressure was noted to be elevated into the 200s systolic blood pressure. Laboratory findings were notable for troponin of 404 which increased to 414. Patient was admitted for COPD exacerbation and NSTEMI. Home Meds Active Scripts Ciprofloxacin Hcl (Ciprofloxacin Hcl) 500 Mg Tab, 500 MG PO DAILY for 5 Days, #5 TAB 0 Refills Prov:RADHA STEVENS DO 01/27/24 Atorvastatin Calcium (ATORVASTATIN CALCIUM) 40 Mg Tab, 40 MG PO DAILY for 30 Days, #30 TAB 1 Refill Prov:RADHA STEVENS DO 01/27/24 Nifedipine (Nifedipine Er) 30 Mg Tab, 30 MG PO DAILY for 60 Days, #60 TAB Prov:RADHA STEVENS DO 01/27/24 Carvedilol (COREG) 12.5 Mg Tab, 12.5 MG PO Q12HR for 30 Days, #60 TAB 0 Refills Prov:RADHA STEVENS DO 01/27/24 Pantoprazole Sodium Sesquihydr (Pantoprazole Sodium) 40 Mg Tab, 40 MG PO BID, #120 TAB Prov:ZECHARIAH RODAS MD 01/09/17 Fluticasone Propionate (FLOVENT HFA 110Mcg INH) 110 Mcg Ih, 2 PUFF INH BID, #1 INHALER 0 Refills Prov:ZECHARIAH RODAS MD 04/22/15 Reported Medications Fluticasone Furoate (Inhalatio (Arnuity Ellipta) 100 Mcg/Act Inh, 100 MCG IN DAILY, INHALER 01/25/24 Escitalopram Oxalate (ESCITALOPRAM OXALATE) 20 Mg Tab, 20 MG PO DAILY, TAB 01/25/24 Trazodone Hcl (Trazodone Hcl) 50 Mg Tab, 50 MG PO HS, MG 01/25/24 Semaglutide (Ozempic) 2 Mg/3 Ml Inj, 0.5 MG SC week, INJ 01/25/24 Magnesium Oxide (MAGNESIUM OXIDE) 400 Mg Tab, 1 TAB PO DAILY, #30 TAB 5 Refills 09/17/19 Hydrocodone-Acetaminophen ([place] 5/325MG) 1 Tab Tb, 1 TAB PO TID, #90 TAB 09/17/19 Past Medical History Cardiac: HTN Endocrine: NIDDM Patient Family History: Cerebrovascular accident (CVA) GRANDMOM GRANDFATHER FHx: breast cancer GRANDMOM Family history: Diabetes mellitus G8 MOTHER Family history: Hypertension G8 MOTHER Smoker: Quit Review of Systems Pulmonary/Respiratory: Dyspnea Cardiovascular: Chest Pain H&P Exam Vital Signs Vital Signs Date Time Temp Pulse Resp B/P (MAP) Pulse Ox O2 Delivery O2 Flow Rate FiO2 06/29/24 14:00 65 14 185/80 (115) 95 06/29/24 09:40 Room Air* 0 21 06/29/24 09:13 98.6 General Appeara: Well developed Pulmonary/Respiratory: Normal inspection, Wheezing Cardiovascular/Chest: Regular rate, Normal Rhythm Labs/Xrays Labs Test 06/29/24 13:38 06/29/24 11:23 06/29/24 10:30 06/29/24 10:16 Range/Units Troponin I High Sensitivity 414 *H </=34 ng/L Sodium Level 142 136-145 mmol/L Potassium Level 5.3 H 3.5-5.1 mmol/L Chloride Level 114 H 98-107 mmol/L Carbon Dioxide Level 20 20-31 mmol/L Anion Gap 8 5-15 Blood Urea Nitrogen 37 H 9-23 mg/dL Creatinine 2.52 H 0.550-1.02 mg/dL Glomerular Filtration Rate Calc 21 >90 mL/min BUN/Creatinine Ratio 14.7 10.0-20.0 Serum Glucose 104 74-106 mg/dL Calcium Level 9.7 8.7-10.4 mg/dL Magnesium Level 2.2 1.6-2.6 mg/dL Total Bilirubin 0.3 0.2-1.0 mg/dL Aspartate Amino Transferase (AST) 16 13-40 U/L Alanine Aminotransferase (ALT) 23 7-40 U/L Alkaline Phosphatase 113 46-116 U/L Total Protein 7.7 5.7-8.2 g/dL Albumin 4.2 3.2-4.8 g/dL Urine Color Light-yellow Yellow Urine Clarity Cloudy H Clear Urine pH 6.5 5.0-9.0 Urine Specific [place] 1.017 1.001-1.035 Urine Protein 3+ H Negative Urine Ketones Negative Negative Urine Blood 1+ H Negative /uL Urine Nitrite 2+ H Negative Urine Bilirubin Negative Negative Urine Urobilinogen Normal Negative mg/dL Urine Leukocyte Esterase 3+ Negative /uL Urine RBC 5 0 - 4 /hpf Urine WBC 47 0 - 5 /hpf Urine Squamous Epithelial Cells Few <5 /hpf Urine Bacteria Few H None Seen /hpf Urine Glucose 1+ H Normal mg/dL White Blood Count 12.9 H 4.4-10.8 10^3/uL Red Blood Count 3.82 L 4.0-5.20 10^6/uL Hemoglobin 10.8 L 12.2-16.2 g/dL Hematocrit 34.0 L 36.0-46.0 % Mean Corpuscular Volume 89.0 80.0-100.0 fL Mean Corpuscular Hemoglobin 28.4 28.0-32.0 pg Mean Corpuscular Hemoglobin Concent 31.9 L 32.0-36.0 g/dL Red Cell Distribution Width 16.3 H 11.8-14.3 % Platelet Count 400 140-450 10^3/uL Mean Platelet Volume 8.5 6.9-10.8 fL Neutrophils (%) (Auto) 79.3 37.0-80.0 % Lymphocytes (%) (Auto) 12.7 10.0-50.0 % Monocytes (%) (Auto) 5.5 0.0-12.0 % Eosinophils (%) (Auto) 1.6 0.0-7.0 % Basophils (%) (Auto) 0.9 0.0-2.0 % Neutrophils # (Auto) 10.3 H 1.6-8.6 10 ^3/uL Lymphocytes # (Auto) 1.6 0.4-5.4 10 ^3/uL Monocytes # (Auto) 0.7 0-1.3 10 ^3/uL Eosinophils # (Auto) 0.2 0-0.8 10 ^3/uL Basophils # (Auto) 0.1 0-0.2 10 ^3/uL Nucleated Red Blood Cells 0.0 % Thyroid Stimulating Hormone (TSH) 1.93 0.55-4.78 uIU/mL Assessment/Plan Primary Diagnosis 1. NSTEMI 2' Diagnosis/Co-morbidities 2. COPD Exacerbation 3. Hypertensive Urgency 4. History of Type 2DM 5. CKD Stage 3 with history of 1 kidney, congenital defect 6. History of Triple Vessel CABG Plan -Admit to telemetry. -Cardiology consulted, Dr. Swann. -TTE pending -Heparin drip started -Trend troponin until downtrending. -Nephrology consulted due to CKD stage IIIa with history 1 functional kidney -Antihypertensive medications restarted -Adding scale. -A1c ordered -DuoNeb treatment, Solu-Medrol, ceftriaxone and azithromycin goal pulse ox greater than 92%. -Pain medications listed per OCT -Full code -Cardiac diet Plan discussed with: Patient RADHA STEVENS Jun 29, 2024 14:56
[2024-06-29] MEDS: methylPREDNISolone SOD SUCC 125 MG/2 ML VL IV SCH (15:06)
[2024-06-29] MEDS: cloNIDine HCL 0.1 MG TAB PO SCH (15:06)
[2024-06-29] MEDS: AZITHROMYCIN 250 MG TAB PO ONE (15:06)
[2024-06-29] MEDS: NIFEdipine ER 30 MG TAB PO SCH (15:07)
[2024-06-29] MEDS: LABETALOL HCL 200 MG TAB PO SCH (15:07)
[2024-06-29] MEDS: HEPARIN DRIP/D5W 100UNITS/ML 250 ML IV SCH (15:46)
[2024-06-29 15:57] LABS: Basophils # (auto) 0.1 10 ^3/uL (0-0.2); Basophils % (auto) 0.6 % (0.0-2.0); Eosinophils # (auto) 0.2 10 ^3/uL (0-0.8); Eosinophils % (auto) 1.7 % (0.0-7.0); Hematocrit 35.4 % (36.0-46.0); Hemoglobin 11.4 g/dL (12.2-16.2); Lymphocytes # (auto) 2.2 10 ^3/uL (0.4-5.4); Lymphocytes % (auto) 18.9 % (10.0-50.0); Mean Corpuscular Hemoglobin 28.8 pg (28.0-32.0); Mean Corpuscular Hgb Conc. 32.3 g/dL (32.0-36.0); Mean Corpuscular Volume 89.4 fL (80.0-100.0); Monocytes # (auto) 0.7 10 ^3/uL (0-1.3); Monocytes % (auto) 6.3 % (0.0-12.0); Neutrophils # (auto) 8.3 10 ^3/uL (1.6-8.6); Neutrophils % (auto) 72.5 % (37.0-80.0); Platelet Count (auto) 427 10^3/uL (140-450); Red Blood Cells 3.96 10^6/uL (4.0-5.20); Red Cell Distribution Width 16.3 % (11.8-14.3); White Blood Cell 11.5 10^3/uL (4.4-10.8)
[2024-06-29 16:42] LABS: INR 1.03 (0.9-1.15); Partial Thromboplastin Time 24.8 SEC (24.5-34.5); Prothrombin Time 10.9 sec (9.3-11.8)
[2024-06-29] MEDS: InsuLIN REG 1unit/0.01ml Soln (100units/ml) SC SCH (17:00)
[2024-06-29] MEDS: ACCU-CHEK COMFORT CURVE STRIP VI SCH (17:28)
[2024-06-29] MEDS: hydrALAZINE HCL 20 MG/ML VL IV PRN (18:06)
[2024-06-29 18:10] VITALS: PULSE 74; PULSE 76; RESP 22; RESP 25; O2SAT 100; O2SAT 98
[2024-06-29] MEDS: IPRATROPIUM BROM 0.5 MG/2.5ML INH SOL NEB SCH (18:10)
[2024-06-29] MEDS: ALBUTEROL SULF 2.5 MG/0.5ML(0.5%) NEB SOLN NEB SCH (18:10)
[2024-06-29] MEDS: MORPHINE SULFATE INJ 2 MG/ml SYRG IV PRN (18:12)
--- NOTE | 2024-06-29 19:34 | ECG ---
[facility] Test Date: 2024-06-29 Test Time: 09:14:14 Pat Name: AMEE JONES Department: ER Room: 0275T Gender: F Digital Intern: MALVIN : 1960 Requested By: MELVI CARRILLO Order Number: [id number] Reading MD: Tejas Oquendo Measurements Intervals [place] Rate: 110 P: 90 NM: 133 QRS: 77 QRSD: 91 T: -2 QT: 345 QTc: 467 Interpretive Statements Sinus tachycardia Left ventricular hypertrophy Repol abnrm, severe global ischemia (LM/MVD) Electronically Signed On 07-02-2024 11:15:55 PST by Tejas Oquendo Please click the below link to view image of tracing.
[2024-06-29 20:42] VITALS: BP 152/65; PULSE 83; PULSE 85; TEMP 97.7; O2SAT 95
[2024-06-29] MEDS: PANTOPRAZOLE 40 MG TAB PO SCH (21:56)
[2024-06-29] MEDS: traZODone HCL 50 MG TAB PO SCH (21:56)
[2024-06-29] MEDS: FUROSEMIDE 40 MG/4 ML VIAL IV ONE (21:56)
[2024-06-29 22:00] VITALS: BP 147/78; PULSE 86; RESP 18; TEMP 97.1; O2SAT 96
[2024-06-29] MEDS ORDERED: CARVEDILOL 12.5 MG TAB PO SCH (22:00)
[2024-06-29 22:20] LABS: INR 1.03 (0.9-1.15); Partial Thromboplastin Time 29.9 SEC (24.5-34.5); Prothrombin Time 10.9 sec (9.3-11.8)
[2024-06-29] MEDS: HEPARIN SODIUM (PORCINE) 5000 UNITS/ML 1ML VIAL IV ONE (23:04)
[2024-06-30] VITALS (20 sets, daily range): BP systolic 124–164; BP diastolic 56–75; PULSE 60–86; RESP 13–20; TEMP 97.1–98; O2SAT 93–100
[2024-06-30 06:25] LABS: Basophils # (auto) 0 10 ^3/uL (0-0.2); Basophils % (auto) 0.3 % (0.0-2.0); Eosinophils # (auto) 0 10 ^3/uL (0-0.8); Hematocrit 33.2 % (36.0-46.0); Hemoglobin 10.6 g/dL (12.2-16.2); Lymphocytes # (auto) 1.2 10 ^3/uL (0.4-5.4); Lymphocytes % (auto) 10.2 % (10.0-50.0); Mean Corpuscular Hemoglobin 28.6 pg (28.0-32.0); Mean Corpuscular Hgb Conc. 31.9 g/dL (32.0-36.0); Mean Corpuscular Volume 89.8 fL (80.0-100.0); Monocytes # (auto) 0.3 10 ^3/uL (0-1.3); Monocytes % (auto) 2.4 % (0.0-12.0); Neutrophils # (auto) 10.1 10 ^3/uL (1.6-8.6); Neutrophils % (auto) 87.1 % (37.0-80.0); Platelet Count (auto) 373 10^3/uL (140-450); Red Cell Distribution Width 16.6 % (11.8-14.3); White Blood Cell 11.5 10^3/uL (4.4-10.8)
[2024-06-30 06:41] LABS: INR 1.05 (0.9-1.15); Partial Thromboplastin Time 54.4 SEC (24.5-34.5); Prothrombin Time 11.1 sec (9.3-11.8)
[2024-06-30 06:45] LABS: Alanine Aminotransferase 20 U/L (7-40); Albumin 4.1 g/dL (3.2-4.8); Alkaline Phosphatase 112 U/L (46-116); Anion Gap 12 (5-15); Aspartate Aminotransferase 11 U/L (13-40); BUN/Creatinine Ratio 15.4 (10.0-20.0); Bilirubin, Total 0.2 mg/dL (0.2-1.0); Calcium 10.1 mg/dL (8.7-10.4); Carbon Dioxide 17 mmol/L (20-31); Chloride 112 mmol/L (98-107); Glucose 122 mg/dL (74-106); Sodium 141 mmol/L (136-145)
[2024-06-30 06:52] LABS: Blood Urea Nitrogen 53 mg/dL (9-23)
[2024-06-30 06:55] LABS: Potassium 5.6 mmol/L (3.5-5.1)
[2024-06-30] MEDS: SODIUM ZIRCONIUM CYCL 10 GM PAK PO ONE (09:22)
[2024-06-30] MEDS: CITALOPRAM HYDROBR 20 MG TAB PO SCH (09:24)
[2024-06-30] MEDS ORDERED: NIFEdipine ER 30 MG TAB PO SCH (10:00)
--- NOTE | 2024-06-30 10:31 | DVHCONRES ---
Date Seen: Jun 30, 2024 Resident Creating Document: JHAJJ,SARPUNEET RESIDENT Referring Physician md chucho Reason for Consultation CKD with 1 kidney History of Present Illness Patient is a 63-year-old female with a past medical history of COPD, solitary kidney , coronary artery disease status post CABG, CKD stage 4 came to the ED with a chief complaint of worsening shortness of breath for the past 3-4 days. Patient reported that she has a history of COPD and takes inhalers and about 4 days ago her inhalers ran out and she started feeling short of breath which got worsened associated with substernal chest pain with the radiation to the left arm that began in the morning of admission. On arrival to the ED patient had elevated blood pressures recorded at 243/132 mmHg. Patient also reports that she has been having dysuria for the past 3 weeks associated with intermittent fever and chills Past Medical History COPD, coronary artery disease status post CABG, CKD stage 4, Past Surgical History CABG Family History: Cerebrovascular accident (CVA) GRANDMOM GRANDFATHER FHx: breast cancer GRANDMOM Family history: Diabetes mellitus G8 MOTHER Family history: Hypertension G8 MOTHER Social History Patient lives with family denies smoking, alcohol, drug use Allergies: Coded Allergies: Diphenhydramine (Verified Allergy, Unknown, 08/01/14) Home Meds Active Scripts Atorvastatin Calcium (ATORVASTATIN CALCIUM) 40 Mg Tab, 40 MG PO DAILY for 30 Days, #30 TAB 1 Refill Prov:RADHA STEVENS DO 01/27/24 Nifedipine (Nifedipine Er) 30 Mg Tab, 30 MG PO DAILY for 60 Days, #60 TAB Prov:RADHA STEVENS DO 01/27/24 Carvedilol (COREG) 12.5 Mg Tab, 12.5 MG PO Q12HR for 30 Days, #60 TAB 0 Refills Prov:RADHA STEVENS DO 01/27/24 Pantoprazole Sodium Sesquihydr (Pantoprazole Sodium) 40 Mg Tab, 40 MG PO BID, #120 TAB Prov:ZECHARIAH RODAS MD 01/09/17 Fluticasone Propionate (FLOVENT HFA 110Mcg INH) 110 Mcg Ih, 2 PUFF INH BID, #1 INHALER 0 Refills Prov:ZECHARIAH RODAS MD 04/22/15 Reported Medications Losartan Potassium (Losartan Potassium) 25 Mg Tab, 1 TAB PO DAILY for 90 Days, #90 06/30/24 Tizanidine Hydrochloride (Tizanidine Hcl) 2 Mg Tab, 1 TAB PO Q12HR for 30 Days, #60 06/30/24 Hydrocodone-Acetaminophen (Hydrocodone Bitartrate/AC 10-325 mg) 1 Tab Tab, 1 TAB PO TID for 30 Days, #90 06/30/24 Fluticasone Furoate (Inhalatio (Arnuity Ellipta) 100 Mcg/Act Inh, 1 PUFF IN DAILY for 90 Days, #90 01/25/24 Escitalopram Oxalate (ESCITALOPRAM OXALATE) 20 Mg Tab, 20 MG PO DAILY, TAB 01/25/24 Trazodone Hcl (Trazodone Hcl) 50 Mg Tab, 50 MG PO HS, MG 01/25/24 Semaglutide (Ozempic) 2 Mg/3 Ml Inj, 0.5 MG SC QWEEKLY 01/25/24 Magnesium Oxide (MAGNESIUM OXIDE) 400 Mg Tab, 1 TAB PO DAILY, #30 TAB 5 Refills 09/17/19 Current Medications Current Medications Medications (Trade) Dose Ordered Sig/Taina Route PRN Reason Start Time Stop Time Status Last Admin Acetaminophen (Tylenol Tablet) 325 mg Q4HP PRN PO MILD PAIN (1-3 PAIN SCALE) 06/29/24 14:30 Acetaminophen/ Hydrocodone Bitart (Amagon 5/325MG Tab) 1 tab Q4HP PRN PO MODERATE PAIN (4-6 PAIN SCALE) 06/29/24 14:30 Ondansetron HCl (Zofran) 4 mg Q4HP PRN IV NAUSEA / VOMITING 06/29/24 14:30 Morphine Sulfate 2 mg Q4HPRN PRN IV SEVERE PAIN (7-10 PAIN SCALE) 06/29/24 14:30 06/29/24 18:12 Diagnostic Test (Pha) (Accu-Chek Comfort Curve T) 1 strip ACHS 06/29/24 17:00 06/30/24 06:10 Insulin Human Regular (InsuLIN R) ACHS SC 06/29/24 17:00 06/30/24 06:22 Dextrose 50 ml UD PRN IV Blood Sugar LESS THAN 60 06/29/24 14:30 Nitroglycerin (Ntrostat Sublingual) 0.4 mg Q5MINP PRN SL FOR CHEST PAIN 06/29/24 14:30 Morphine Sulfate 2 mg Q30M PRN IV FOR CHEST PAIN 06/29/24 14:30 Heparin Sodium/ Dextrose 250 ml @ 10 mls/hr Q24H IV 06/29/24 14:30 06/29/24 23:08 Ipratropium [place] (Atrovent Medneb) 0.5 mg Q6HR NEB 06/29/24 14:30 06/29/24 16:29 DC Albuterol (Ventolin Medneb) 2.5 mg Q6HR NEB 06/29/24 18:00 06/30/24 06:56 Methylprednisolone Sodium Succinate (Solu Medrol) 125 mg DAILY IV 06/29/24 14:30 06/30/24 09:24 Ceftriaxone Sodium 50 ml @ 100 mls/hr DAILY IV 06/29/24 14:45 06/30/24 09:25 Clonidine HCl (Catapres Tablet) 0.1 mg TID PO 06/29/24 14:45 06/30/24 05:14 Nifedipine (Procardia Xl (Time-Release)) 90 mg DAILY PO 06/29/24 14:45 06/30/24 09:26 Labetalol HCl (Normodyne Tablet) 200 mg BID PO 06/29/24 14:45 06/30/24 09:25 Carvedilol (Coreg Tablet) 12.5 mg Q12HR PO 06/29/24 22:00 Hold Nifedipine (Procardia Xl (Time-Release)) 30 mg DAILY PO 06/30/24 10:00 Hold Pantoprazole Sodium (Protonix Tablet) 40 mg BID PO 06/29/24 22:00 06/30/24 09:24 Trazodone HCl (Desyrel) 50 mg HS PO 06/29/24 22:00 06/29/24 21:56 Atorvastatin Calcium (Lipitor) 40 mg HS PO 06/30/24 22:00 Citalopram Hydrobromide (CeleXA TABLET) 40 mg DAILY PO 06/30/24 10:00 06/30/24 09:24 Hydralazine HCl (Apresoline Injection) 10 mg Q6HP PRN IV SBP>180. Hold if HR>120 06/29/24 15:00 06/29/24 18:06 Ipratropium [place] (Atrovent Medneb) 0.5 mg Q6HR NEB 06/29/24 18:00 06/30/24 06:56 Review of Systems Patient seen and examined with the bedside. Patient is alert and oriented to time, place and person. Patient reports shortness of breath on walking to the restroom and back. Patient is saturating 94% on 2 L oxygen via nasal cannula. Patient reports feeling weak. Patient reports dysuria and mild abdominal pain/discomfort with suprapubic tenderness. Vital Signs Vital Signs Date Time Temp Pulse Resp B/P (MAP) Pulse Ox O2 Delivery O2 Flow Rate FiO2 06/30/24 09:26 157/56 06/30/24 09:25 61 06/30/24 09:00 98.0 18 100 98.0 06/30/24 06:56 Nasal Cannula* 2 28 Physical Exam Physical Examination Gen - no pallor, no icterus, no cyanosis, no clubbing, no LAD, no edema . Skin - Patients skin is warm and dry. HEENT - normocephalic, atraumatic, moist mucous membranes. Neck - full ROM, no LAD, no JVD Pulmonary - B/L decreased breath sounds with expiratory wheezing heard bilaterally, no crackles, no stridor. cardiovascular - normal S1,S2 heard. no murmurs heard. peripheral pulses normal radial 2+, pedal 2+. capillary refill normal <2 secs. GI - soft abdomen with tenderness to palpation suprapubic region. no hepatospleenomegaly. Bowel sounds + Neurological - Patient is A/O X 3 . Bilateral upper extremity strength 5/5, bilateral lower extremity strength 5/5, no facial droop, normal speech, no tremor, no sensory deficiets. Labs/Diagnostic Data Labs Test 06/30/24 06:14 06/30/24 04:53 06/29/24 15:33 06/29/24 11:23 Range/Units POC Glucose 136 H 70-106 mg/dl White Blood Count 11.5 H 4.4-10.8 10^3/uL Red Blood Count 3.70 L 4.0-5.20 10^6/uL Hemoglobin 10.6 L 12.2-16.2 g/dL Hematocrit 33.2 L 36.0-46.0 % Mean Corpuscular Volume 89.8 80.0-100.0 fL Mean Corpuscular Hemoglobin 28.6 28.0-32.0 pg Mean Corpuscular Hemoglobin Concent 31.9 L 32.0-36.0 g/dL Red Cell Distribution Width 16.6 H 11.8-14.3 % Platelet Count 373 140-450 10^3/uL Mean Platelet Volume 9.2 6.9-10.8 fL Neutrophils (%) (Auto) 87.1 H 37.0-80.0 % Lymphocytes (%) (Auto) 10.2 10.0-50.0 % Monocytes (%) (Auto) 2.4 0.0-12.0 % Eosinophils (%) (Auto) 0.0 0.0-7.0 % Basophils (%) (Auto) 0.3 0.0-2.0 % Neutrophils # (Auto) 10.1 H 1.6-8.6 10 ^3/uL Lymphocytes # (Auto) 1.2 0.4-5.4 10 ^3/uL Monocytes # (Auto) 0.3 0-1.3 10 ^3/uL Eosinophils # (Auto) 0 0-0.8 10 ^3/uL Basophils # (Auto) 0 0-0.2 10 ^3/uL Nucleated Red Blood Cells 0.0 % Prothrombin Time 11.1 9.3-11.8 sec Prothrombin Time INR 1.05 0.9-1.15 Activated Partial Thromboplast Time 54.4 H 24.5-34.5 SEC Sodium Level 141 136-145 mmol/L Potassium Level 5.6 *H 3.5-5.1 mmol/L Chloride Level 112 H 98-107 mmol/L Carbon Dioxide Level 17 L 20-31 mmol/L Anion Gap 12 5-15 Blood Urea Nitrogen 53 #H 9-23 mg/dL Creatinine 3.44 #H 0.550-1.02 mg/dL Glomerular Filtration Rate Calc 14 >90 mL/min BUN/Creatinine Ratio 15.4 10.0-20.0 Serum Glucose 122 H 74-106 mg/dL Calcium Level 10.1 8.7-10.4 mg/dL Total Bilirubin 0.2 0.2-1.0 mg/dL Aspartate Amino Transferase (AST) 11 L 13-40 U/L Alanine Aminotransferase (ALT) 20 7-40 U/L Alkaline Phosphatase 112 46-116 U/L Total Protein 7.0 5.7-8.2 g/dL Albumin 4.1 3.2-4.8 g/dL Troponin I High Sensitivity 458 *H </=34 ng/L Magnesium Level 2.2 1.6-2.6 mg/dL Test 06/29/24 10:30 06/29/24 10:16 Range/Units Urine Color Light-yellow Yellow Urine Clarity Cloudy H Clear Urine pH 6.5 5.0-9.0 Urine Specific [place] 1.017 1.001-1.035 Urine Protein 3+ H Negative Urine Ketones Negative Negative Urine Blood 1+ H Negative /uL Urine Nitrite 2+ H Negative Urine Bilirubin Negative Negative Urine Urobilinogen Normal Negative mg/dL Urine Leukocyte Esterase 3+ Negative /uL Urine RBC 5 0 - 4 /hpf Urine WBC 47 0 - 5 /hpf Urine Squamous Epithelial Cells Few <5 /hpf Urine Bacteria Few H None Seen /hpf Urine Glucose 1+ H Normal mg/dL Thyroid Stimulating Hormone (TSH) 1.93 0.55-4.78 uIU/mL Plan/Recommendation Assessment and plan # CKD stage V - serum creatinine 2.52--> 3.44 - BUN 37--> 53 - urine sodium, urine creatinine, urine protein pending - strict I&Os - on furosemide 80 mg once daily - output 250 mL , input 610 mL - avoid nephrotoxic medication - hemodialysis catheter inserted # CKD stage 5 likely due to longstanding uncontrolled diabetes and uncontrolled hypertension/solitary kidney - GFR 15-20 - renal ultrasound shows no kidney seen in the right renal fossa, left kidney measures 9.7 cm in length, echogenic left kidney compatible with medical renal disease - HbA1c pending - serum phosphorus 6 - serum PTH 343.5 # hyperkalemia -reported medical management given - continue monitoring # hyperphosphatemia -sevelamer 800 mg t.i.d. with meals # acute hypoxic respiratory failure likely due to COPD exacerbation # NSTEMI # hypotensive emergency # history of triple-vessel disease status post CABG Goals of care discussed with the patient for over 20 minutes. Full code. Plan discussed with Dr. Rodriguez Addendum Patient seen and examined, plan discussed with resident. Agree with above, we will follow closely recommend dialysis given ckd5/hyperkalemia need chair time with DCD tunneled cath Plan discussed with: Patient ROMEO SILVA RESIDENT Jun 30, 2024 10:30 ARTUR RODRIGUEZ MD Jun 30, 2024 19:45
--- NOTE | 2024-06-30 11:21 | DVH ---
RENAL ULTRASOUND CLINICAL HISTORY: CKD TECHNIQUE: Multiple ultrasound images of the kidneys and bladder were obtained. COMPARISON: US KIDNEY on DOS: 01/24/24 FINDINGS: There is no kidney seen in the right renal fossa on current ultrasound. The left kidney measures 9.7 cm in length. Left kidney appears echogenic compatible with medical renal disease. There are multiple scattered hepatic cysts, the largest in the lower pole measuring 2.2 cm. There is no sonographic naomy dence of nephrolithiasis or hydronephrosis. The bladder appears within normal limits without significant post void residual. IMPRESSION: 1. There is no kidney seen in the right renal fossa on the current ultrasound. 2. Echogenic left kidney compatible with medical renal disease. 3. Multiple left renal cysts measuring up to 2.2 cm. HS:Y
--- NOTE | 2024-06-30 12:01 | DVHPN2 ---
Progress Note - Dictate Date Seen: Jun 30, 2024 Medical Necessity Reason Pt with a Central, PICC or Fol: No Subjective Patient notes she feels unwell this morning. She describes generalized malaise. vital signs Vital Sign Date Time Temp Pulse Resp B/P (MAP) Pulse Ox O2 Delivery O2 Flow Rate FiO2 06/30/24 09:26 157/56 06/30/24 09:25 61 06/30/24 09:00 98.0 18 100 98.0 06/30/24 06:56 Nasal Cannula* 2 28 Total Intake and Output 06/29/24 06/29/24 06/30/24 15:00 23:00 07:00 Intake Total 600 ml Balance 600 ml medications Current Medications Medications Dose Ordered Sig/Taina Route Start Time Stop Time Status Last Admin Dose Admin Acetaminophen 325 mg Q4HP PRN PO 06/29/24 14:30 Acetaminophen/ Hydrocodone Bitart 1 tab Q4HP PRN PO 06/29/24 14:30 Ondansetron HCl 4 mg Q4HP PRN IV 06/29/24 14:30 Morphine Sulfate 2 mg Q4HPRN PRN IV 06/29/24 14:30 06/29/24 18:12 2 MG Diagnostic Test (Pha) 1 strip ACHS 06/29/24 17:00 06/30/24 11:47 1 STRIP Insulin Human Regular ACHS SC 06/29/24 17:00 06/30/24 11:47 6 UNITS Dextrose 50 ml UD PRN IV 06/29/24 14:30 Nitroglycerin 0.4 mg Q5MINP PRN SL 06/29/24 14:30 Morphine Sulfate 2 mg Q30M PRN IV 06/29/24 14:30 Heparin Sodium/ Dextrose 250 ml @ 10 mls/hr Q24H IV 06/29/24 14:30 06/29/24 23:08 10 MLS/HR Albuterol 2.5 mg Q6HR NEB 06/29/24 18:00 06/30/24 06:56 2.5 MG Methylprednisolone Sodium Succinate 125 mg DAILY IV 06/29/24 14:30 06/30/24 09:24 125 MG Ceftriaxone Sodium 50 ml @ 100 mls/hr DAILY IV 06/29/24 14:45 06/30/24 09:25 100 MLS/HR Clonidine HCl 0.1 mg TID PO 06/29/24 14:45 06/30/24 05:14 0.1 MG Nifedipine 90 mg DAILY PO 06/29/24 14:45 06/30/24 09:26 90 MG Labetalol HCl 200 mg BID PO 06/29/24 14:45 06/30/24 09:25 200 MG Carvedilol 12.5 mg Q12HR PO 06/29/24 22:00 Hold Nifedipine 30 mg DAILY PO 06/30/24 10:00 Hold Pantoprazole Sodium 40 mg BID PO 06/29/24 22:00 06/30/24 09:24 40 MG Trazodone HCl 50 mg HS PO 06/29/24 22:00 06/29/24 21:56 50 MG Atorvastatin Calcium 40 mg HS PO 06/30/24 22:00 Citalopram Hydrobromide 40 mg DAILY PO 06/30/24 10:00 06/30/24 09:24 40 MG Hydralazine HCl 10 mg Q6HP PRN IV 06/29/24 15:00 06/29/24 18:06 10 MG Ipratropium [place] 0.5 mg Q6HR NEB 06/29/24 18:00 06/30/24 06:56 0.5 MG objective General appearance: No acute distress Respiratory: Fine crackles Cardiovascular: Regular rate and rhythm, no murmurs. No edema Abdomen: Soft, nondistended, nontender, bowel sounds present MSK: Normal range of motion. Neuro: Alert, no neurological deficits Psych: Appropriate mood and affect. laboratory and microbiology Laboratory Tests 06/30/24 04:53 Test 06/30/24 04:53 Range/Units Serum Glucose 122 H 74-106 mg/dL Assessment/Plan 1. NSTEMI 2' Diagnosis/Co-morbidities 2. COPD Exacerbation 3. Hypertensive Urgency 4. History of Type 2DM 5. CKD Stage 3 with history of atrophic kidney 6. History of Triple Vessel CABG Plan -Cardiology consulted, Dr. Swann. -TTE pending -Heparin drip started -Trend troponin until downtrending. -Nephrology consulted due to CKD stage IIIa with history 1 functional kidney. Worsening. Plan for IR consult with tunneled dialysis catheter placement. Sodium bicarbonate and zirconium added for hyperkalemia.Plan for HD. -Antihypertensive medications restarted -Adding scale. -A1c ordered -DuoNeb treatment, Solu-Medrol, ceftriaxone and azithromycin goal pulse ox greater than 92%. -Pain medications listed per MAR -Full code -Cardiac diet Plan discussed with: Patient SERENITY STEVENSMelly Gibson DO Jun 30, 2024 12:01
[2024-06-30 12:38] LABS: INR 1.05 (0.9-1.15); Partial Thromboplastin Time 39.3 SEC (24.5-34.5); Prothrombin Time 11.1 sec (9.3-11.8)
--- NOTE | 2024-06-30 12:49 | DVHPN2 ---
Progress Note Date Seen: Jun 30, 2024 Medical Necessity Reason Pt with a Central, PICC or Fol: No Subjective Patient reports: Feels better Objective vital signs Vital Sign Date Time Temp Pulse Resp B/P (MAP) Pulse Ox O2 Delivery O2 Flow Rate FiO2 06/30/24 09:26 157/56 06/30/24 09:25 61 06/30/24 09:00 98.0 18 100 98.0 06/30/24 06:56 Nasal Cannula* 2 28 Total Intake and Output 06/29/24 06/29/24 06/30/24 15:00 23:00 07:00 Intake Total 600 ml Balance 600 ml medications Current Medications Medications Dose Ordered Sig/Taina Route Start Time Stop Time Status Last Admin Dose Admin Acetaminophen 325 mg Q4HP PRN PO 06/29/24 14:30 Acetaminophen/ Hydrocodone Bitart 1 tab Q4HP PRN PO 06/29/24 14:30 Ondansetron HCl 4 mg Q4HP PRN IV 06/29/24 14:30 Morphine Sulfate 2 mg Q4HPRN PRN IV 06/29/24 14:30 06/29/24 18:12 2 MG Diagnostic Test (Pha) 1 strip ACHS 06/29/24 17:00 06/30/24 11:47 1 STRIP Insulin Human Regular ACHS SC 06/29/24 17:00 06/30/24 11:47 6 UNITS Dextrose 50 ml UD PRN IV 06/29/24 14:30 Nitroglycerin 0.4 mg Q5MINP PRN SL 06/29/24 14:30 Morphine Sulfate 2 mg Q30M PRN IV 06/29/24 14:30 Heparin Sodium/ Dextrose 250 ml @ 10 mls/hr Q24H IV 06/29/24 14:30 06/29/24 23:08 10 MLS/HR Albuterol 2.5 mg Q6HR NEB 06/29/24 18:00 06/30/24 06:56 2.5 MG Methylprednisolone Sodium Succinate 125 mg DAILY IV 06/29/24 14:30 06/30/24 09:24 125 MG Ceftriaxone Sodium 50 ml @ 100 mls/hr DAILY IV 06/29/24 14:45 06/30/24 09:25 100 MLS/HR Clonidine HCl 0.1 mg TID PO 06/29/24 14:45 06/30/24 05:14 0.1 MG Nifedipine 90 mg DAILY PO 06/29/24 14:45 06/30/24 09:26 90 MG Labetalol HCl 200 mg BID PO 06/29/24 14:45 06/30/24 09:25 200 MG Carvedilol 12.5 mg Q12HR PO 06/29/24 22:00 Hold Nifedipine 30 mg DAILY PO 06/30/24 10:00 Hold Pantoprazole Sodium 40 mg BID PO 06/29/24 22:00 06/30/24 09:24 40 MG Trazodone HCl 50 mg HS PO 06/29/24 22:00 06/29/24 21:56 50 MG Atorvastatin Calcium 40 mg HS PO 06/30/24 22:00 Citalopram Hydrobromide 40 mg DAILY PO 06/30/24 10:00 06/30/24 09:24 40 MG Hydralazine HCl 10 mg Q6HP PRN IV 06/29/24 15:00 06/29/24 18:06 10 MG Ipratropium [place] 0.5 mg Q6HR NEB 06/29/24 18:00 06/30/24 06:56 0.5 MG Examination: GENERAL:Abnormal, HEENT:Abnormal, LUNGS:Abnormal, CVS:Abnormal, ABDOMEN:Abnormal laboratory and microbiology Laboratory Tests 06/30/24 04:53 Test 06/30/24 04:53 Range/Units Serum Glucose 122 H 74-106 mg/dL Problem List/Assessment/Plan Problem List/Assessment/Plan nstemi ckd stage V htn hyperkalemia pending HD line and HD consider C to follow dc heparin gtt asa/statin echo shows siginficant LVH with preserved LVEF Plan discussed with: Patient My Orders My Orders Orders - NICKY CHIU MD Procedure Category Date Status Time Clonidine Hcl Tablet PHA 06/29/24 In Process (Catapres Tablet) 14:45 Nifedipine Er PHA 06/29/24 In Process (Procardia Xl 14:45 Labetalol Hcl Tablet PHA 06/29/24 In Process (Normodyne Tablet) 14:45 Date of Service: Jun 30, 2024 Billing Provider: NICKY CHIU MD Common Visit Codes: NOT BILLABLE NICKY CHIU MD Jun 30, 2024 12:49
[2024-06-30] MEDS: FUROSEMIDE 100 MG/10ML VIAL IV ONE (14:21)
[2024-06-30] MEDS: HYDROcodone-ACET 5/325MG TAB PO PRN (14:28)
[2024-06-30] MEDS ORDERED: HYDR-4798 PO (16:24)
[2024-06-30] MEDS: HEPARIN SODIUM (PORCINE) 5000 UNITS/ML 1ML VIAL ONE (16:43)
[2024-06-30] MEDS: fentaNYL CITRATE 100 MCG/2 ML VL ONE (16:43)
[2024-06-30] MEDS: MIDAZOLAM HCL 2MG/2ML 2ml VIAL (1mg/ml) ONE (16:43)
[2024-06-30] MEDS: LIDOCAINE 2%HCL (LOCAL ANESTH.) INJ 20ML MDV ONE (16:43)
[2024-06-30] MEDS: ceFAZolin 1GM/50ML 50 ML IV ONE (16:48)
[2024-06-30] MEDS: SODIUM BICARB 8.4% 50Meq/50ml SYR Vial IV ONE (17:40)
[2024-06-30] MEDS: SEVELAMER 800 MG TAB PO SCH (20:13)
[2024-06-30] MEDS: ATORVASTATIN 20 MG TAB PO SCH (22:13)
[2024-07-01] VITALS (18 sets, daily range): BP systolic 104–127; BP diastolic 54–69; PULSE 71–88; RESP 16–20; TEMP 97.4–97.6; O2SAT 92–100
--- NOTE | 2024-07-01 04:04 | DVH ---
PROCEDURE: TUNNELED CENTRAL VENOUS CATHETER PLACEMENT USING FLUOROSCOPY AND ULTRASOUND HISTORY: TD CATH, esrd DOCUMENTATION: Informed consent was obtained and a procedural time out was performed. SEDATION: Moderate sedation was utilized during the procedure. The patient received benzodiazepines a nd opioids, the dosing of which was documented in the patient s permanent medical record. Pre-sedatio n history and evaluation revealed no contraindications to sedation. The patient s level of consciousn ess and physiologic status was monitored continuously by the physician and nursing staff throughout t he procedure. Total intra-service moderate sedation time was 30 minutes. FLUORO: 1 minutes, 2 mGy TECHNIQUE: The skin over the RIGHT internal jugular vein and chest was sterilely prepped, draped and anesthetized with 1% lidocaine with epinephrine. The vein was accessed with a 21-gauge needle under ultrasound guidance with an image archived in the PACS. A guidewire was then passed into the central veins under fluoroscopy. The subcutaneous tunnel was anesthetized with 1% lidocaine and the catheter was tunneled to the venous entry site, cut to the appropriate length, and inserted through a peel annita y sheath. A final radiograph was obtained, the catheter was flushed and secured in place, and sterile dressings were applied. Procedural physician complied with all CLIP criteria, including preprocedural hand hygiene and use of maximum sterile barriers including hat, gown, sterile gloves, mask, and head to toe drape. The neck and chest were prepped with chlorhexidine solution and draped in the usual sterile fashion. The prep solution was allowed to dry prior to puncture. FINDINGS: Ultrasound demonstrates a patent RIGHT internal jugular vein. The tip of the catheter was placed near the cavoatrial junction. No complications are identified. IMPRESSION: SUCCESSFUL 14.5 x 23 cm PERSIAN DUAL-LUMEN POWER INJECTABLE TUNNELED CENTRAL VENOUS CATHETER PLACEMEN T. THE CATHETER IS READY FOR IMMEDIATE USE. Procedure by Dr. Busch.
[2024-07-01 05:44] LABS: Basophils # (auto) 0 10 ^3/uL (0-0.2); Basophils % (auto) 0.1 % (0.0-2.0); Eosinophils # (auto) 0 10 ^3/uL (0-0.8); Hematocrit 31.1 % (36.0-46.0); Hemoglobin 9.7 g/dL (12.2-16.2); Lymphocytes # (auto) 1.1 10 ^3/uL (0.4-5.4); Lymphocytes % (auto) 6.1 % (10.0-50.0); Mean Corpuscular Hemoglobin 28.8 pg (28.0-32.0); Mean Corpuscular Hgb Conc. 31.3 g/dL (32.0-36.0); Mean Corpuscular Volume 91.9 fL (80.0-100.0); Monocytes % (auto) 5.3 % (0.0-12.0); Neutrophils # (auto) 16.7 10 ^3/uL (1.6-8.6); Neutrophils % (auto) 88.5 % (37.0-80.0); Platelet Count (auto) 376 10^3/uL (140-450); Red Blood Cells 3.38 10^6/uL (4.0-5.20); Red Cell Distribution Width 16.4 % (11.8-14.3); White Blood Cell 18.9 10^3/uL (4.4-10.8)
--- NOTE | 2024-07-01 08:12 | DVHPN2 ---
Progress Note Date Seen: Jul 01, 2024 Resident Creating Document: RENETTA SILVAHOLDEN RESIDENT Medical Necessity Reason Pt with a Central, PICC or Fol: No Subjective Review of Systems Patient is a 63-year-old female with a past medical history of COPD, solitary kidney , coronary artery disease status post CABG, CKD stage 4 came to the ED with a chief complaint of worsening shortness of breath for the past 3-4 days. Patient reported that she has a history of COPD and takes inhalers and about 4 days ago her inhalers ran out and she started feeling short of breath which got worsened associated with substernal chest pain with the radiation to the left arm that began in the morning of admission. On arrival to the ED patient had elevated blood pressures recorded at 243/132 mmHg. Patient also reports that she has been having dysuria for the past 3 weeks associated with intermittent fever and chills Past Medical History- COPD, coronary artery disease status post CABG, CKD stage 4, Past Surgical History- CABG Social History- Patient lives with family denies smoking, alcohol, drug use Review of Systems Patient seen and examined with the bedside. Patient is alert and oriented to time, place and person. Patient reports shortness of breath on walking to the restroom and back. Patient is saturating 94% on 2 L oxygen via nasal cannula. Patient reports feeling weak. Patient reports dysuria and mild abdominal pain/discomfort with suprapubic tenderness which has improved since yesterday. Objective vital signs Vital Sign Date Time Temp Pulse Resp B/P (MAP) Pulse Ox O2 Delivery O2 Flow Rate FiO2 07/01/24 07:58 95 Nasal Cannula* 2 28 07/01/24 06:42 120/65 07/01/24 06:32 78 16 07/01/24 05:00 97.6 97.6 Total Intake and Output 06/30/24 06/30/24 07/01/24 15:00 23:00 07:00 Intake Total 110 ml 500 ml 500 ml Output Total 250 ml Balance 110 ml 250 ml 500 ml medications Current Medications Medications Dose Ordered Sig/Taina Route Start Time Stop Time Status Last Admin Dose Admin Acetaminophen 325 mg Q4HP PRN PO 06/29/24 14:30 Acetaminophen/ Hydrocodone Bitart 1 tab Q4HP PRN PO 06/29/24 14:30 06/30/24 20:13 1 TAB Ondansetron HCl 4 mg Q4HP PRN IV 06/29/24 14:30 Morphine Sulfate 2 mg Q4HPRN PRN IV 06/29/24 14:30 06/29/24 18:12 2 MG Diagnostic Test (Pha) 1 strip ACHS 06/29/24 17:00 07/01/24 06:57 1 STRIP Insulin Human Regular ACHS SC 06/29/24 17:00 07/01/24 06:57 2 UNITS Dextrose 50 ml UD PRN IV 06/29/24 14:30 Nitroglycerin 0.4 mg Q5MINP PRN SL 06/29/24 14:30 Morphine Sulfate 2 mg Q30M PRN IV 06/29/24 14:30 Albuterol 2.5 mg Q6HR NEB 06/29/24 18:00 07/01/24 06:28 2.5 MG Methylprednisolone Sodium Succinate 125 mg DAILY IV 06/29/24 14:30 06/30/24 09:24 125 MG Ceftriaxone Sodium 50 ml @ 100 mls/hr DAILY IV 06/29/24 14:45 06/30/24 09:25 100 MLS/HR Clonidine HCl 0.1 mg TID PO 06/29/24 14:45 07/01/24 06:42 0.1 MG Nifedipine 90 mg DAILY PO 06/29/24 14:45 06/30/24 09:26 90 MG Labetalol HCl 200 mg BID PO 06/29/24 14:45 06/30/24 22:13 200 MG Carvedilol 12.5 mg Q12HR PO 06/29/24 22:00 Hold Nifedipine 30 mg DAILY PO 06/30/24 10:00 Hold Pantoprazole Sodium 40 mg BID PO 06/29/24 22:00 06/30/24 22:13 40 MG Trazodone HCl 50 mg HS PO 06/29/24 22:00 06/30/24 22:13 50 MG Atorvastatin Calcium 40 mg HS PO 06/30/24 22:00 06/30/24 22:13 40 MG Citalopram Hydrobromide 40 mg DAILY PO 06/30/24 10:00 06/30/24 09:24 40 MG Hydralazine HCl 10 mg Q6HP PRN IV 06/29/24 15:00 06/29/24 18:06 10 MG Ipratropium [place] 0.5 mg Q6HR NEB 06/29/24 18:00 07/01/24 06:28 0.5 MG Furosemide 80 mg DAILY IV 07/01/24 10:00 Sevelamer HCl 800 mg TIDWM PO 06/30/24 19:00 06/30/24 20:13 800 MG Examination Physical Examination Gen - no pallor, no icterus, no cyanosis, no clubbing, no LAD, no edema . Skin - Patients skin is warm and dry. HEENT - normocephalic, atraumatic, moist mucous membranes. Neck - full ROM, no LAD, no JVD Pulmonary - B/L decreased breath sounds with expiratory wheezing heard bilaterally, no crackles, no stridor. cardiovascular - normal S1,S2 heard. no murmurs heard. peripheral pulses normal radial 2+, pedal 2+. capillary refill normal <2 secs. GI - soft abdomen with tenderness to palpation suprapubic region. no hepatospleenomegaly. Bowel sounds + Neurological - Patient is A/O X 3 . Bilateral upper extremity strength 5/5, bilateral lower extremity strength 5/5, no facial droop, normal speech, no tremor, no sensory deficiets. laboratory and microbiology Laboratory Tests 07/01/24 04:48 06/30/24 04:53 Test 06/30/24 04:53 Range/Units Serum Glucose 122 H 74-106 mg/dL Problem List/Assessment/Plan Problem List/Assessment/Plan Assessment and plan # CKD stage V likely hemodynamically mediated now ESRD - serum creatinine 2.52--> 3.44--> 4.29 - BUN 37--> 53--> 74 - urine sodium 15, urine creatinine 89.5, urine protein 149 mg/dL - serum sodium 137 - FENA 0.5% - strict I&Os - on furosemide 80 mg once daily - output 250 mL - avoid nephrotoxic medication - hemodialysis catheter inserted - patient got hemodialysis on 07/01 # CKD stage 5 likely due to longstanding uncontrolled diabetes and uncontrolled hypertension - GFR 15-20 - renal ultrasound shows no kidney seen in the right renal fossa, left kidney measures 9.7 cm in length, echogenic left kidney compatible with medical renal disease - HbA1c pending - urine total protein 149 mg/dL - serum phosphorus 6 - serum PTH 343.5 - given epoetin 4000 units subcutaneous # hyperkalemia -reported medical management given - continue monitoring # hyperphosphatemia -sevelamer 800 mg t.i.d. with meals # acute hypoxic respiratory failure likely due to COPD exacerbation # NSTEMI # hypotensive emergency # history of triple-vessel disease status post CABG Goals of care discussed with the patient for over 20 minutes. Full code. Plan discussed with Dr. Hudson Addendum Patient seen and examined, plan discussed with resident. Agree with above, we will follow closely HD tomorrow Chair time pending Plan discussed with: Patient My Orders My Orders Orders - ROMEO SILVA RESIDENT Procedure Category Date Status Time Urine Sodium LAB 06/30/24 Logged 10:23 Urine Creatinine LAB 06/30/24 Logged 10:23 Urine Protein LAB 06/30/24 Logged 10:23 Kidney US 06/30/24 Resulted 10:23 Furosemide Injection PHA 07/01/24 In Process (Lasix Injection) 10:00 Sevelamer (Renagel) PHA 06/30/24 In Process 19:00 Basic Metabolic Panel LAB 07/01/24 Logged 08:06 ROMEO SILVA Jul 01, 2024 08:12 ARTUR HUDSON MD Jul 01, 2024 18:41
[2024-07-01 08:22] LABS: Chloride 108 mmol/L (98-107); Potassium 5.5 mmol/L (3.5-5.1); Sodium 137 mmol/L (136-145)
[2024-07-01 08:23] LABS: Anion Gap 12 (5-15); Carbon Dioxide 17 mmol/L (20-31)
[2024-07-01 08:24] LABS: Calcium 9.1 mg/dL (8.7-10.4)
[2024-07-01 08:28] LABS: BUN/Creatinine Ratio 17.2 (10.0-20.0); Glucose 158 mg/dL (74-106)
[2024-07-01 08:33] LABS: Blood Urea Nitrogen 74 mg/dL (9-23)
[2024-07-01] MEDS: FUROSEMIDE 100 MG/10ML VIAL IV SCH (10:00)
[2024-07-01] MEDS: NICOTINE 21MG/24 HR TOPICAL PATCH TD SCH (11:07)
--- NOTE | 2024-07-01 11:07 | DVHPN2 ---
Progress Note - Dictate Date Seen: Jul 01, 2024 Medical Necessity Reason Pt with a Central, PICC or Fol: No Subjective Patient notes she feels unwell this morning. She notes some sciatica pain. Requesting nicotine patch. vital signs Vital Sign Date Time Temp Pulse Resp B/P (MAP) Pulse Ox O2 Delivery O2 Flow Rate FiO2 07/01/24 10:00 93 Nasal Cannula 2.0 07/01/24 10:00 28 07/01/24 08:19 97.4 73 19 122/69 (86) 97.4 Total Intake and Output 06/30/24 06/30/24 07/01/24 15:00 23:00 07:00 Intake Total 110 ml 500 ml 500 ml Output Total 250 ml Balance 110 ml 250 ml 500 ml medications Current Medications Medications Dose Ordered Sig/Taina Route Start Time Stop Time Status Last Admin Dose Admin Acetaminophen 325 mg Q4HP PRN PO 06/29/24 14:30 Acetaminophen/ Hydrocodone Bitart 1 tab Q4HP PRN PO 06/29/24 14:30 07/01/24 09:14 1 TAB Ondansetron HCl 4 mg Q4HP PRN IV 06/29/24 14:30 Morphine Sulfate 2 mg Q4HPRN PRN IV 06/29/24 14:30 06/29/24 18:12 2 MG Diagnostic Test (Pha) 1 strip ACHS 06/29/24 17:00 07/01/24 06:57 1 STRIP Insulin Human Regular ACHS SC 06/29/24 17:00 07/01/24 06:57 2 UNITS Dextrose 50 ml UD PRN IV 06/29/24 14:30 Nitroglycerin 0.4 mg Q5MINP PRN SL 06/29/24 14:30 Morphine Sulfate 2 mg Q30M PRN IV 06/29/24 14:30 Albuterol 2.5 mg Q6HR NEB 06/29/24 18:00 07/01/24 06:28 2.5 MG Methylprednisolone Sodium Succinate 125 mg DAILY IV 06/29/24 14:30 07/01/24 09:14 125 MG Ceftriaxone Sodium 50 ml @ 100 mls/hr DAILY IV 06/29/24 14:45 07/01/24 09:14 100 MLS/HR Clonidine HCl 0.1 mg TID PO 06/29/24 14:45 07/01/24 06:42 0.1 MG Nifedipine 90 mg DAILY PO 06/29/24 14:45 06/30/24 09:26 90 MG Labetalol HCl 200 mg BID PO 06/29/24 14:45 06/30/24 22:13 200 MG Carvedilol 12.5 mg Q12HR PO 06/29/24 22:00 Hold Nifedipine 30 mg DAILY PO 06/30/24 10:00 Hold Pantoprazole Sodium 40 mg BID PO 06/29/24 22:00 06/30/24 22:13 40 MG Trazodone HCl 50 mg HS PO 06/29/24 22:00 06/30/24 22:13 50 MG Atorvastatin Calcium 40 mg HS PO 06/30/24 22:00 06/30/24 22:13 40 MG Citalopram Hydrobromide 40 mg DAILY PO 06/30/24 10:00 06/30/24 09:24 40 MG Hydralazine HCl 10 mg Q6HP PRN IV 06/29/24 15:00 06/29/24 18:06 10 MG Ipratropium [place] 0.5 mg Q6HR NEB 06/29/24 18:00 07/01/24 06:28 0.5 MG Furosemide 80 mg DAILY IV 07/01/24 10:00 Sevelamer HCl 800 mg TIDWM PO 06/30/24 19:00 06/30/24 20:13 800 MG Nicotine 1 patch DAILY TD 07/01/24 10:30 objective General appearance: No acute distress Respiratory: Fine crackles Cardiovascular: Regular rate and rhythm, no murmurs. No edema Abdomen: Soft, nondistended, nontender, bowel sounds present MSK: Normal range of motion. Neuro: Alert, no neurological deficits Psych: Appropriate mood and affect. laboratory and microbiology Laboratory Tests 07/01/24 04:48 Test 07/01/24 04:48 Range/Units Serum Glucose 158 H 74-106 mg/dL Assessment/Plan 1. NSTEMI 2' Diagnosis/Co-morbidities 2. COPD Exacerbation 3. Hypertensive Urgency 4. History of Type 2DM 5. CKD Stage 3 with history of atrophic kidney 6. History of Triple Vessel CABG 7. Tobacco Dependence Plan -Cardiology consulted, Dr. Swann. -TTE pending -Heparin drip started. Plan for left heart cath on . -Nephrology consulted due to CKD stage IIIa with history 1 functional kidney. Tunneled dialysis catheter placed. Plan for HD today. -Antihypertensive medications restarted -Insulin sliding scale. -A1c ordered -DuoNeb treatment, Solu-Medrol, ceftriaxone and azithromycin goal pulse ox greater than 92%. -Pain medications listed per MAR -Full code -Nicotine patch added -Cardiac diet Plan discussed with: Patient MELINDASERENITY VILLAFUERTEMelly Gibson DO Jul 01, 2024 11:07
[2024-07-01] MEDS ORDERED: ONDANSETRON HCL 4 MG/2 ML VIAL IV ONE (14:15)
[2024-07-01] MEDS: ONDANSETRON HCL 4 MG/2 ML VIAL IV PRN (14:17)
[2024-07-01] MEDS: PANTOPRAZOLE 40 MG/10 ML VIAL INJ IV ONE (14:27)
[2024-07-01 16:20] LABS: Creatinine, Urine 89.52 mg/dL (30.0-125.0)
[2024-07-01] MEDS: MORPHINE SULFATE INJ 2 MG/ml SYRG IV PRN (20:22)
[2024-07-01] MEDS: EPOETIN ALFA-EPBX 4,000 UNIT/ML VIAL SC ONE (21:20)
[2024-07-02] VITALS (24 sets, daily range): BP systolic 110–153; BP diastolic 52–83; PULSE 52–86; RESP 13–21; TEMP 97.6–98.3; O2SAT 92–100
[2024-07-02] MEDS: NITROGLYCERIN 0.4 MG SL TAB SL PRN (00:35)
[2024-07-02 07:03] LABS: Basophils # (auto) 0 10 ^3/uL (0-0.2); Eosinophils # (auto) 0 10 ^3/uL (0-0.8); Hematocrit 32.9 % (36.0-46.0); Hemoglobin 10.4 g/dL (12.2-16.2); Lymphocytes # (auto) 0.6 10 ^3/uL (0.4-5.4); Lymphocytes % (auto) 3.1 % (10.0-50.0); Mean Corpuscular Hemoglobin 28.3 pg (28.0-32.0); Mean Corpuscular Hgb Conc. 31.5 g/dL (32.0-36.0); Mean Corpuscular Volume 89.8 fL (80.0-100.0); Monocytes # (auto) 1.3 10 ^3/uL (0-1.3); Monocytes % (auto) 6.6 % (0.0-12.0); Neutrophils # (auto) 17.6 10 ^3/uL (1.6-8.6); Neutrophils % (auto) 90.3 % (37.0-80.0); Platelet Count (auto) 322 10^3/uL (140-450); Red Blood Cells 3.66 10^6/uL (4.0-5.20); Red Cell Distribution Width 16.8 % (11.8-14.3); White Blood Cell 19.5 10^3/uL (4.4-10.8)
[2024-07-02] MEDS: MEROPENEM 500MG IVPB 50 ML IV SCH (07:15)
[2024-07-02 07:29] LABS: Chloride 107 mmol/L (98-107); Potassium 4.4 mmol/L (3.5-5.1); Sodium 139 mmol/L (136-145)
[2024-07-02 07:30] LABS: Anion Gap 12 (5-15); Carbon Dioxide 20 mmol/L (20-31)
[2024-07-02 07:35] LABS: BUN/Creatinine Ratio 19.8 (10.0-20.0); Blood Urea Nitrogen 71 mg/dL (9-23); Glucose 105 mg/dL (74-106)
[2024-07-02 09:01] LABS: Hepatitis B Surface Antigen Negative (Negative)
[2024-07-02 09:22] LABS: Hepatitis A Ab IgM Negative; Hepatitis B Core IgM Negative
[2024-07-02 09:23] LABS: Hepatitis C Antibody Negative (Negative)
--- NOTE | 2024-07-02 12:01 | DVHPN2 ---
Progress Note Date Seen: Jul 02, 2024 Resident Creating Document: RENETTA SILVAHOLDEN RESIDENT Medical Necessity Reason Pt with a Central, PICC or Fol: No Subjective Review of Systems Patient is a 63-year-old female with a past medical history of COPD, solitary kidney , coronary artery disease status post CABG, CKD stage 4 came to the ED with a chief complaint of worsening shortness of breath for the past 3-4 days. Patient reported that she has a history of COPD and takes inhalers and about 4 days ago her inhalers ran out and she started feeling short of breath which got worsened associated with substernal chest pain with the radiation to the left arm that began in the morning of admission. On arrival to the ED patient had elevated blood pressures recorded at 243/132 mmHg. Patient also reports that she has been having dysuria for the past 3 weeks associated with intermittent fever and chills Past Medical History- COPD, coronary artery disease status post CABG, CKD stage 4, Past Surgical History- CABG Social History- Patient lives with family denies smoking, alcohol, drug use Review of Systems Patient seen and examined with the bedside. Patient is alert and oriented to time, place and person. Patient reports her breathing has improved. Patient is saturating 94% on 2 L oxygen via nasal cannula. Patient reports feeling weak. Patient reports mild abdominal pain/discomfort with suprapubic tenderness which has improved since yesterday. Blood pressure 143/62 mmHg, SpO2 94% on 2 L oxygen, heart rate 80 per minute regular. Objective vital signs Vital Sign Date Time Temp Pulse Resp B/P (MAP) Pulse Ox O2 Delivery O2 Flow Rate FiO2 07/02/24 10:00 95 Nasal Cannula* 2 28 07/02/24 09:33 143/62 07/02/24 09:10 97.8 80 17 97.8 Total Intake and Output 07/01/24 07/01/24 07/02/24 14:59 22:59 06:59 Intake Total 1150 ml 650 ml Output Total 700 ml Balance 1150 ml -50 ml medications Current Medications Medications Dose Ordered Sig/Taina Route Start Time Stop Time Status Last Admin Dose Admin Acetaminophen 325 mg Q4HP PRN PO 06/29/24 14:30 Acetaminophen/ Hydrocodone Bitart 1 tab Q4HP PRN PO 06/29/24 14:30 07/02/24 09:52 1 TAB Ondansetron HCl 4 mg Q4HP PRN IV 06/29/24 14:30 07/01/24 14:17 4 MG Morphine Sulfate 2 mg Q4HPRN PRN IV 06/29/24 14:30 06/29/24 18:12 2 MG Diagnostic Test (Pha) 1 strip ACHS 06/29/24 17:00 07/02/24 06:33 1 STRIP Insulin Human Regular ACHS SC 06/29/24 17:00 07/01/24 23:11 4 UNITS Dextrose 50 ml UD PRN IV 06/29/24 14:30 Nitroglycerin 0.4 mg Q5MINP PRN SL 06/29/24 14:30 07/02/24 00:35 0.4 MG Morphine Sulfate 2 mg Q30M PRN IV 06/29/24 14:30 07/01/24 20:22 2 MG Albuterol 2.5 mg Q6HR NEB 06/29/24 18:00 07/02/24 06:22 2.5 MG Methylprednisolone Sodium Succinate 125 mg DAILY IV 06/29/24 14:30 07/02/24 09:34 125 MG Clonidine HCl 0.1 mg TID PO 06/29/24 14:45 07/01/24 21:22 0.1 MG Nifedipine 90 mg DAILY PO 06/29/24 14:45 06/30/24 09:26 90 MG Labetalol HCl 200 mg BID PO 06/29/24 14:45 07/01/24 21:23 200 MG Carvedilol 12.5 mg Q12HR PO 06/29/24 22:00 Hold Nifedipine 30 mg DAILY PO 06/30/24 10:00 Hold Pantoprazole Sodium 40 mg BID PO 06/29/24 22:00 07/02/24 09:34 40 MG Trazodone HCl 50 mg HS PO 06/29/24 22:00 07/01/24 21:22 50 MG Atorvastatin Calcium 40 mg HS PO 06/30/24 22:00 07/01/24 21:22 40 MG Citalopram Hydrobromide 40 mg DAILY PO 06/30/24 10:00 07/02/24 09:34 40 MG Hydralazine HCl 10 mg Q6HP PRN IV 06/29/24 15:00 06/29/24 18:06 10 MG Ipratropium [place] 0.5 mg Q6HR NEB 06/29/24 18:00 07/02/24 06:22 0.5 MG Furosemide 80 mg DAILY IV 07/01/24 10:00 07/02/24 09:33 80 MG Sevelamer HCl 800 mg TIDWM PO 06/30/24 19:00 07/01/24 17:06 800 MG Nicotine 1 patch DAILY TD 07/01/24 10:30 07/02/24 09:47 1 PATCH Meropenem 50 ml @ 17 mls/hr Q12HR IV 07/02/24 07:15 Examination Physical Examination Gen - no pallor, no icterus, no cyanosis, no clubbing, no LAD, no edema . Skin - Patients skin is warm and dry. HEENT - normocephalic, atraumatic, moist mucous membranes. Neck - full ROM, no LAD, no JVD Pulmonary - B/L decreased breath sounds, no wheezing, no crackles, no stridor. cardiovascular - normal S1,S2 heard. no murmurs heard. peripheral pulses normal radial 2+, pedal 2+. capillary refill normal <2 secs. GI - soft abdomen with mild tenderness to palpation in suprapubic region. no hepatospleenomegaly. Bowel sounds + Neurological - Patient is A/O X 3 . Bilateral upper extremity strength 5/5, bilateral lower extremity strength 5/5, no facial droop, normal speech, no tremor, no sensory deficiets. laboratory and microbiology Laboratory Tests 07/02/24 06:11 Test 07/02/24 06:11 Range/Units Serum Glucose 105 74-106 mg/dL Problem List/Assessment/Plan Problem List/Assessment/Plan Assessment and plan Assessment and plan # CKD stage V now ESRD - serum creatinine 2.52--> 3.44--> 4.29-->3.59 - BUN 37--> 53--> 74-->71 - urine sodium 15, urine creatinine 89.5, urine protein 149 mg/dL - serum sodium 137 - FENA 0.5% - strict I&Os - on furosemide 80 mg once daily - output 500 mL - avoid nephrotoxic medication - hemodialysis catheter inserted - patient got hemodialysis on 07/01 with 1500ml fluid removed. - patient is due for left heart catheterization on 07/02 following which she will be planned to dialyze again. # CKD stage 5 likely due to longstanding uncontrolled diabetes and uncontrolled hypertension - GFR 15-20 - renal ultrasound shows no kidney seen in the right renal fossa, left kidney measures 9.7 cm in length, echogenic left kidney compatible with medical renal disease - HbA1c pending - urine total protein 149 mg/dL - serum phosphorus 6 - serum PTH 343.5 - given epoetin 4000 units subcutaneous # hyperkalemia - resolved after hemodialysis - continue monitoring # hyperphosphatemia - sevelamer 800 mg t.i.d. with meals # acute hypoxic respiratory failure likely due to COPD exacerbation # NSTEMI # hypertensive emergency # history of triple-vessel disease status post CABG Goals of care discussed with the patient for over 20 minutes. Full code. Plan discussed with Dr. Hudson Addendum Patient seen and examined, plan discussed with resident. Agree with above, we will follow closely Chair time with [facility] dialysis pending Cardiac catheterization today Plan discussed with: Patient My Orders My Orders Orders - ROMEO SILVA Procedure Category Date Status Time Phosphorus LAB 07/02/24 In Process 09:06 ROMEO SILVA Jul 02, 2024 12:01 ARTUR HUDSON MD Jul 02, 2024 14:51
[2024-07-02] MEDS: IODIXANOL 320MG/ML 100ML BTL IV ONE ×2 (14:27→15:35)
[2024-07-02] MEDS: ANGIOMAX 250 MG VIAL IV ONE (14:54)
[2024-07-02] MEDS: HEPARIN SODIUM (PORCINE) 5000 UNITS/ML 1ML VIAL ONE (14:54)
[2024-07-02] MEDS: VERAPAMIL 2.5MG/ML INJ 2ML VIAL IV ONE (14:55)
[2024-07-02] MEDS: LIDOCAINE 2%HCL (LOCAL ANESTH.) INJ 20ML MDV ONE (14:55)
[2024-07-02] MEDS: SODIUM CHL 0.9% 0 ML ONE (14:55)
[2024-07-02] MEDS: fentaNYL CITRATE 100 MCG/2 ML VL ONE (14:55)
[2024-07-02] MEDS: MIDAZOLAM HCL 2MG/2ML 2ml VIAL (1mg/ml) ONE (14:55)
--- NOTE | 2024-07-02 15:36 | DVHOP2 ---
Operative Report Operative Report CARDIAC SCALLOP CUTTER MACHINE PROCEDURE REPORT [place], [place] Date of Service: 07/02/24 Collet Driller: Nicky Chiu MD PROCEDURES PERFORMED: Coronary angiogram, left heart catheterization, conscious sedation administration and supervision, less than 15 minutes; fluoroscopy use and interpretation. SVG angiogram, aortic root angiogram PREOPERATIVE DIAGNOSES: hx of cabg, nstemi POSTOP DIAGNOSIS: cad DESCRIPTION OF PROCEDURE: The patient or appropriate family signed informed consent understanding the risks, benefits and alternatives of the procedure, they wished to proceed. The patient was brought to the cardiac mechanical shop laborer in n.p.o. state. The patient was prepped in a sterile fashion. Sedation was used per cardiac cath protocol. I administered 2 mL of 2% lidocaine to the right wrist. With an antegrade front wall puncture. I cannulated the right radial artery and placed a 6-[place] Glidesheath slender. Next, an intra-arterial spasmolytic was administered. Next, a - 5 [place] Devine catheter and were used for coronary angiogram and LVEDP measurement and pressure pullback. At the completion of procedure, all guides and wires were removed, and there were no immediate complications. FINDINGS: RCA: Moderate vessel off the right sinus of Valsalva, it is flight director LEFT MAIN: Moderate size left main, it bifurcates into LAD and circumflex. Moderate plaque CIRCUMFLEX: Moderate caliber vessel coming off the left main with 80% prox stenosis. OM1 has moderate disease with competitive flow. distal CX appears to have LPL ?branch or codominant LAD: LAD is a moderate caliber vessel coming of the left main. it is prox to mid occlusion SVG to CX/OM: widely patent ORTEGA not engaged 2/2 to RRA approach SVG to RCA appears to have clips however not able to engage from RRA approach CONCLUSIONS: 1. multivessel [place]lowa dee-ni' CAD 2. SVG to CX is widely patent 3. ORTEGA not engaged PLAN: Aggressive risk factor modification and medical management for the patient. asa/statin/ plavix NICKY CHIU MD Jul 02, 2024 15:36
--- NOTE | 2024-07-02 15:49 | DVHPN2 ---
Progress Note Date Seen: Jul 02, 2024 Medical Necessity Reason Pt with a Central, PICC or Fol: No Subjective Patient reports: Feels better Other Systems: sp cath Objective vital signs Vital Sign Date Time Temp Pulse Resp B/P (MAP) Pulse Ox O2 Delivery O2 Flow Rate FiO2 07/02/24 13:15 70 18 143/62 95 2.0 28 07/02/24 13:08 97.8 97.8 07/02/24 10:00 Nasal Cannula* Total Intake and Output 07/01/24 07/01/24 07/02/24 14:59 22:59 06:59 Intake Total 1150 ml 650 ml Output Total 700 ml Balance 1150 ml -50 ml medications Current Medications Medications Dose Ordered Sig/Taina Route Start Time Stop Time Status Last Admin Dose Admin Acetaminophen 325 mg Q4HP PRN PO 06/29/24 14:30 Acetaminophen/ Hydrocodone Bitart 1 tab Q4HP PRN PO 06/29/24 14:30 07/02/24 09:52 1 TAB Ondansetron HCl 4 mg Q4HP PRN IV 06/29/24 14:30 07/01/24 14:17 4 MG Morphine Sulfate 2 mg Q4HPRN PRN IV 06/29/24 14:30 06/29/24 18:12 2 MG Diagnostic Test (Pha) 1 strip ACHS 06/29/24 17:00 07/02/24 06:33 1 STRIP Insulin Human Regular ACHS SC 06/29/24 17:00 07/01/24 23:11 4 UNITS Dextrose 50 ml UD PRN IV 06/29/24 14:30 Nitroglycerin 0.4 mg Q5MINP PRN SL 06/29/24 14:30 07/02/24 00:35 0.4 MG Morphine Sulfate 2 mg Q30M PRN IV 06/29/24 14:30 07/01/24 20:22 2 MG Albuterol 2.5 mg Q6HR NEB 06/29/24 18:00 07/02/24 12:30 2.5 MG Methylprednisolone Sodium Succinate 125 mg DAILY IV 06/29/24 14:30 07/02/24 09:34 125 MG Clonidine HCl 0.1 mg TID PO 06/29/24 14:45 07/01/24 21:22 0.1 MG Nifedipine 90 mg DAILY PO 06/29/24 14:45 06/30/24 09:26 90 MG Labetalol HCl 200 mg BID PO 06/29/24 14:45 07/01/24 21:23 200 MG Carvedilol 12.5 mg Q12HR PO 06/29/24 22:00 Hold Nifedipine 30 mg DAILY PO 06/30/24 10:00 Hold Pantoprazole Sodium 40 mg BID PO 06/29/24 22:00 07/02/24 09:34 40 MG Trazodone HCl 50 mg HS PO 06/29/24 22:00 07/01/24 21:22 50 MG Atorvastatin Calcium 40 mg HS PO 06/30/24 22:00 07/01/24 21:22 40 MG Citalopram Hydrobromide 40 mg DAILY PO 06/30/24 10:00 07/02/24 09:34 40 MG Hydralazine HCl 10 mg Q6HP PRN IV 06/29/24 15:00 06/29/24 18:06 10 MG Ipratropium [place] 0.5 mg Q6HR NEB 06/29/24 18:00 07/02/24 12:30 0.5 MG Furosemide 80 mg DAILY IV 07/01/24 10:00 07/02/24 09:33 80 MG Sevelamer HCl 800 mg TIDWM PO 06/30/24 19:00 07/01/24 17:06 800 MG Nicotine 1 patch DAILY TD 07/01/24 10:30 07/02/24 09:47 1 PATCH Meropenem 50 ml @ 17 mls/hr Q12HR IV 07/02/24 07:15 Examination: GENERAL:Abnormal, HEENT:Abnormal, LUNGS:Abnormal, CVS:Abnormal, ABDOMEN:Abnormal laboratory and microbiology Laboratory Tests 07/02/24 06:11 Test 07/02/24 06:11 Range/Units Serum Glucose 105 74-106 mg/dL Problem List/Assessment/Plan Problem List/Assessment/Plan nstemi ckd stage V htn hyperkalemia pending HD line and HD consider C to follow dc heparin gtt asa/statin echo shows siginficant LVH with preserved LVEF s/p cath , patent sVG [place] vessel cad no intervention cont dapt statin outpt fu with lab intern Plan discussed with: Patient My Orders My Orders Orders - NICKY CHIU MD Procedure Category Date Status Time Cl Left Heart Cath CL 07/02/24 Taken 07:10 Date of Service: Jul 02, 2024 Billing Provider: NICKY CHIU MD Common Visit Codes: NOT BILLABLE NICKY CHIU MD Jul 02, 2024 15:49
--- NOTE | 2024-07-02 15:53 | DVHDS2 ---
New Physician D'charge PN Admitting Diagnosis Admitting Diagnosis cp Discharge Diagnosis esrd on hd nstemi s/p cad s/p cabg Operations or Procedures cardiac cath tunneled hd catheter placement Reason(s) For Hospitalization Surgery Hospital Course 63 F who comes to ER with CP. Her troponin was noted to be >400 and she has a hx of CABG in the past. She was admitted and cardiology saw her and was taken to equipment operator/laborer and noted to have patent SVG with [place] CAD. She was recommended with medical mgmt as per cardio. she also has a hx of solitary kidney and her renal function worsened thus she was seen by nephrology and had a tunneled catheter inserted and was dialyzed yesterday. she will continue outpt HD as per renal and chair times for thrice weekly HD have been confirmed at [facility] dialysis. pt to dc home with outpt HD as scheduled and heritage to arrange for all outpt follow up. She rec'd IV Abx for uti in hospital and will complete PO Abx at home. Treatment Plan Discharge Condition of Discharge Good Disposition Home with Health Services Discharge Instructions Diet: Cardiac 2g Na,low cholest, Renal Activity: No Restrictions, As Tolerated Medications: see med sheet Follow Up Care Follow Up/Referral: pcp nephrology cardio Discharge Statement: "Patient was advised to return to the ER or call 911 if any headaches, dizziness, shortness of breath, chest pain, abdominal pain, bleeding, fevers, or worsening of medical condition. Patient was counseled about treatment plan, medications, possible side effects, patientverbalized understanding. All questions were answered to the best of my ability. This discharge took greater then 30 minutes in planning, reviewing docu mentation, counseling the patient, and discussing with other team members." BOLIVAR العلي MD Jul 02, 2024 15:53
[2024-07-02] MEDS ORDERED: LEVO500T91 PO (15:55)
[2024-07-02] MEDS ORDERED: ASPI-543 PO (15:55)
--- NOTE | 2024-07-02 16:34 | DVHSR ---
APPROVED REPORT EXAM: Two-dimensional and M-mode echocardiogram with Doppler and color Doppler. Blood Pressure: 157/56 mmHg INDICATION NSTEMI RISK FACTORS Height: 50, Weight: 137 DIMENSIONS LVDd4.3 (3.8-5.7cm)LA (2D)4.7 (1.9-4.0cm)Aortic Root3.4 (2.0-3.7cm) LVDs3.0 (2.5-4.0cm)LA (MM) (1.9-4.0cm)Aortic Cusp Exc1.7 (1.5-2.0cm) EF (%) 58.0 (55-70%)Rt. Atrium4.0 (1.9-4.0cm)Asc. Aorta cm IVSd2.0 (0.7-1.1cm)RV (D) (1.8-2.4cm) PWd1.7 (0.7-1.1cm) Mitral Valve MitralMitral Stenosis E wave0.88m/sMV Mean GR.mmHg A wave0.79m/sMV Peak GR.112mmHg E/A ratio1.12D MVAcm2 DECEL [id number] 1/2 Oimw20wg IVRTmsDop MVA2.61cm2 Aortic Valve Aortic ValveAortic Stenosis V10.90m/Veda Mean GR.5mmHg V21.67m/Veda Peak GR.11mmHg LVOT Diameter2.0 (1.8-2.4cm)Doppler AVA1.69cm2 AI P 1/2 Dayi251.50ms Pulmonic Valve V20.86m/s Tricuspid Valve TR Velocity2.27m/s [id number] Conclusion lvef 55% by visual estiamte severe LVH Left atrium dilated moderate to severe aortic regurg moderate to severe mitral regurg mild to moderate tricuspid regurg
[2024-07-02] MEDS: SODIUM CHL 0.9% 1000 ML BAG XX ONE ×2 (19:55→21:27)
[2024-07-03] VITALS (12 sets, daily range): BP systolic 127–192; BP diastolic 65–88; PULSE 72–89; RESP 16–20; TEMP 98–99.2; O2SAT 93–100
[2024-07-03 06:46] LABS: Anion Gap 6 (5-15); Carbon Dioxide 32 mmol/L (20-31); Chloride 102 mmol/L (98-107); Potassium 4.2 mmol/L (3.5-5.1); Sodium 140 mmol/L (136-145)
[2024-07-03 06:47] LABS: Calcium 9.2 mg/dL (8.7-10.4)
[2024-07-03 06:52] LABS: BUN/Creatinine Ratio 16.1 (10.0-20.0); Glucose 93 mg/dL (74-106)
[2024-07-03 06:53] LABS: Blood Urea Nitrogen 35 mg/dL (9-23)
[2024-07-03] MEDS: hydrALAZINE HCL 20 MG/ML VL IV ONE (06:58)
[2024-07-03 07:05] LABS: Basophils # (auto) 0 10 ^3/uL (0-0.2); Basophils % (auto) 0.1 % (0.0-2.0); Eosinophils # (auto) 0 10 ^3/uL (0-0.8); Eosinophils % (auto) 0.1 % (0.0-7.0); Hematocrit 31.6 % (36.0-46.0); Hemoglobin 10.1 g/dL (12.2-16.2); Lymphocytes # (auto) 1.4 10 ^3/uL (0.4-5.4); Lymphocytes % (auto) 10.3 % (10.0-50.0); Mean Corpuscular Hemoglobin 28.5 pg (28.0-32.0); Mean Corpuscular Hgb Conc. 32.1 g/dL (32.0-36.0); Mean Corpuscular Volume 88.8 fL (80.0-100.0); Monocytes # (auto) 1.2 10 ^3/uL (0-1.3); Monocytes % (auto) 9.3 % (0.0-12.0); Neutrophils # (auto) 10.7 10 ^3/uL (1.6-8.6); Neutrophils % (auto) 80.2 % (37.0-80.0); Nucleated Red Blood Cells % 0.1 %; Platelet Count (auto) 266 10^3/uL (140-450); Red Blood Cells 3.56 10^6/uL (4.0-5.20); Red Cell Distribution Width 16.2 % (11.8-14.3); White Blood Cell 13.3 10^3/uL (4.4-10.8)
[2024-07-03] MEDS ORDERED: LABE200T10 PO (12:06)
[2024-07-03] MEDS ORDERED: CLON0.1T PO (12:06)
[2024-07-03] MEDS ORDERED: NIFE1TAB31 PO (12:06)
[2024-07-03] MEDS ORDERED: ALBU0.084 NEB (12:34)
--- NOTE | 2024-07-03 13:02 | DVHPN2 ---
Progress Note Date Seen: Jul 03, 2024 Resident Creating Document: DAVIDRalphRalphROMEO RESIDENT Medical Necessity Reason Pt with a Central, PICC or Fol: No Subjective Review of Systems Patient is a 63-year-old female with a past medical history of COPD, solitary kidney , coronary artery disease status post CABG, CKD stage 4 came to the ED with a chief complaint of worsening shortness of breath for the past 3-4 days. Patient reported that she has a history of COPD and takes inhalers and about 4 days ago her inhalers ran out and she started feeling short of breath which got worsened associated with substernal chest pain with the radiation to the left arm that began in the morning of admission. On arrival to the ED patient had elevated blood pressures recorded at 243/132 mmHg. Patient also reports that she has been having dysuria for the past 3 weeks associated with intermittent fever and chills Past Medical History- COPD, coronary artery disease status post CABG, CKD stage 4, Past Surgical History- CABG Social History- Patient lives with family denies smoking, alcohol, drug use Review of Systems Patient seen and examined with the bedside. Patient is alert and oriented to time, place and person. Patient reports her breathing has improved. Patient is saturating 94% on 3 L oxygen via nasal cannula. Patient reports feeling weak. Blood pressure 138/95mmHg, SpO2 94% on 2 L oxygen, heart rate 80 per minute regular. Other Systems: Patient seen and examined by myself today on rounds with the medicine resident, I agree with the assessment and plan Objective vital signs Vital Sign Date Time Temp Pulse Resp B/P (MAP) Pulse Ox O2 Delivery O2 Flow Rate FiO2 07/03/24 11:52 82 18 99 07/03/24 11:46 Nasal Cannula* 3 32 07/03/24 10:08 138/95 07/03/24 08:26 98.4 98.4 Total Intake and Output 07/02/24 07/02/24 07/03/24 15:00 23:00 07:00 Intake Total 0 ml 290 ml Output Total 900 ml Balance -900 ml 290 ml medications Current Medications Medications Dose Ordered Sig/Taina Route Start Time Stop Time Status Last Admin Dose Admin Acetaminophen 325 mg Q4HP PRN PO 06/29/24 14:30 Acetaminophen/ Hydrocodone Bitart 1 tab Q4HP PRN PO 06/29/24 14:30 07/03/24 04:23 1 TAB Ondansetron HCl 4 mg Q4HP PRN IV 06/29/24 14:30 07/01/24 14:17 4 MG Morphine Sulfate 2 mg Q4HPRN PRN IV 06/29/24 14:30 06/29/24 18:12 2 MG Diagnostic Test (Pha) 1 strip ACHS 06/29/24 17:00 07/03/24 11:39 1 STRIP Insulin Human Regular ACHS SC 06/29/24 17:00 07/03/24 11:45 3 UNITS Dextrose 50 ml UD PRN IV 06/29/24 14:30 Nitroglycerin 0.4 mg Q5MINP PRN SL 06/29/24 14:30 07/02/24 00:35 0.4 MG Morphine Sulfate 2 mg Q30M PRN IV 06/29/24 14:30 07/01/24 20:22 2 MG Albuterol 2.5 mg Q6HR NEB 06/29/24 18:00 07/03/24 11:46 2.5 MG Methylprednisolone Sodium Succinate 125 mg DAILY IV 06/29/24 14:30 07/03/24 09:06 125 MG Clonidine HCl 0.1 mg TID PO 06/29/24 14:45 07/03/24 05:22 0.1 MG Nifedipine 90 mg DAILY PO 06/29/24 14:45 07/03/24 09:10 90 MG Labetalol HCl 200 mg BID PO 06/29/24 14:45 07/03/24 09:08 200 MG Carvedilol 12.5 mg Q12HR PO 06/29/24 22:00 Hold Nifedipine 30 mg DAILY PO 06/30/24 10:00 Hold Pantoprazole Sodium 40 mg BID PO 06/29/24 22:00 07/03/24 09:08 40 MG Trazodone HCl 50 mg HS PO 06/29/24 22:00 07/02/24 23:10 50 MG Atorvastatin Calcium 40 mg HS PO 06/30/24 22:00 07/02/24 23:10 40 MG Citalopram Hydrobromide 40 mg DAILY PO 06/30/24 10:00 07/03/24 09:09 40 MG Hydralazine HCl 10 mg Q6HP PRN IV 06/29/24 15:00 07/03/24 04:17 10 MG Ipratropium [place] 0.5 mg Q6HR NEB 06/29/24 18:00 07/03/24 11:46 0.5 MG Furosemide 80 mg DAILY IV 07/01/24 10:00 07/03/24 09:05 80 MG Sevelamer HCl 800 mg TIDWM PO 06/30/24 19:00 07/03/24 12:04 800 MG Nicotine 1 patch DAILY TD 07/01/24 10:30 07/03/24 09:08 1 PATCH Meropenem 50 ml @ 17 mls/hr Q12HR IV 07/02/24 07:15 07/03/24 09:10 17 MLS/HR Examination Physical Examination Gen - no pallor, no icterus, no cyanosis, no clubbing, no LAD, no edema . Skin - Patients skin is warm and dry. HEENT - normocephalic, atraumatic, moist mucous membranes. Neck - full ROM, no LAD, no JVD Pulmonary - B/L decreased breath sounds which have improved since yesterday, no wheezing, no crackles, no stridor. cardiovascular - normal S1,S2 heard. no murmurs heard. peripheral pulses normal radial 2+, pedal 2+. capillary refill normal <2 secs. GI - soft abdomen with mild tenderness to palpation in suprapubic region. no hepatospleenomegaly. Bowel sounds + Neurological - Patient is A/O X 3 . Bilateral upper extremity strength 5/5, bilateral lower extremity strength 5/5, no facial droop, normal speech, no tremor, no sensory deficiets. laboratory and microbiology Laboratory Tests 07/03/24 05:15 Test 07/03/24 05:15 Range/Units Serum Glucose 93 74-106 mg/dL Microbiology Date/Time Source Procedure Growth Status 07/02/24 09:40 Blood Blood Culture - Preliminary NO GROWTH AFTER 24 HOURS OF INCUBATION. Resulted Problem List/Assessment/Plan Problem List/Assessment/Plan Assessment and plan Assessment and plan # CKD stage V likely hemodynamically mediated now ESRD - serum creatinine 2.52--> 3.44--> 4.29-->3.59-->2.17 - BUN 37--> 53--> 74-->71-->35 - urine sodium 15, urine creatinine 89.5, urine protein 149 mg/dL - serum sodium 137 - FENA 0.5% - strict I&Os - on furosemide 80 mg once daily - urine output over past 24 hrs - avoid nephrotoxic medication - hemodialysis catheter inserted - patient got hemodialysis on 07/01 with 1500ml fluid removed. - Hemodialysis done on 07/02 with 2300ml fluid removed. # CKD stage 5 likely due to longstanding uncontrolled diabetes and uncontrolled hypertension - GFR 15-20 - renal ultrasound shows no kidney seen in the right renal fossa, left kidney measures 9.7 cm in length, echogenic left kidney compatible with medical renal disease - HbA1c pending - urine total protein 149 mg/dL - serum phosphorus 6 - serum PTH 343.5 - given epoetin 4000 units subcutaneous # hyperkalemia - resolved after hemodialysis - continue monitoring # hyperphosphatemia - sevelamer 800 mg t.i.d. with meals # acute hypoxic respiratory failure likely due to COPD exacerbation # NSTEMI # hypotensive emergency # history of triple-vessel disease status post CABG Patient is being sent home with the hemodialysis catheter and is advised to follow up in the [facility] outpatient dialysis center. Goals of care discussed with the patient for over 20 minutes. Full code. Plan discussed with Dr. Saunders Plan discussed with: Patient ROMEO SILVA Jul 03, 2024 13:02 MANISHA SAUNDERS MD Jul 03, 2024 16:47
== END 2024-07-03 13:18 | disposition home or self-care (01) | DRG 280 ==
LOC: ER 08:55 → TELE 14:19 → TELE-WESTW 19:05
PROVIDERS: ADMIT Student in an Organized Health Care Education/Training Program; ATTEND Student in an Organized Health Care Education/Training Program
PROC: 0JH63XZ Insertion of Tunneled Vascular Access Device into Chest Subcutaneous Tissue and Fascia, Percutaneous Approach (ICD-10-PCS; principal; 2024-06-30)
PROC: 02HV33Z Insertion of Infusion Device into Superior Vena Cava, Percutaneous Approach (ICD-10-PCS; 2024-06-30)
PROC: B5181ZA Fluoroscopy of Superior Vena Cava using Low Osmolar Contrast, Guidance (ICD-10-PCS; 2024-06-30)
PROC: B548ZZA Ultrasonography of Superior Vena Cava, Guidance (ICD-10-PCS; 2024-06-30)
PROC: 5A1D70Z Performance of Urinary Filtration, Intermittent, Less than 6 Hours Per Day (ICD-10-PCS; 2024-07-01)
PROC: 4A023N7 Measurement of Cardiac Sampling and Pressure, Left Heart, Percutaneous Approach (ICD-10-PCS; 2024-07-02)
PROC: B211YZZ Fluoroscopy of Multiple Coronary Arteries using Other Contrast (ICD-10-PCS; 2024-07-02)
PROC: B310YZZ Fluoroscopy of Thoracic Aorta using Other Contrast (ICD-10-PCS; 2024-07-02)
PROC: 5A1D70Z Performance of Urinary Filtration, Intermittent, Less than 6 Hours Per Day (ICD-10-PCS; 2024-07-02)
DX: I21.4 Non-ST elevation (NSTEMI) myocardial infarction (principal); J96.01 Acute respiratory failure with hypoxia; N18.6 End stage renal disease; J44.1 Chronic obstructive pulmonary disease with (acute) exacerbation; N39.0 Urinary tract infection, site not specified; N17.9 Acute kidney failure, unspecified; I12.0 Hypertensive chronic kidney disease with stage 5 chronic kidney disease or end stage renal disease; I16.1 Hypertensive emergency; I25.10 Atherosclerotic heart disease of native coronary artery without angina pectoris; D63.1 Anemia in chronic kidney disease; E11.22 Type 2 diabetes mellitus with diabetic chronic kidney disease; I95.9 Hypotension, unspecified; E83.39 Other disorders of phosphorus metabolism; E87.5 Hyperkalemia; E11.65 Type 2 diabetes mellitus with hyperglycemia; Z90.49 Acquired absence of other specified parts of digestive tract; Z79.899 Other long term (current) drug therapy; Z79.84 Long term (current) use of oral hypoglycemic drugs; F17.210 Nicotine dependence, cigarettes, uncomplicated; Z82.49 Family history of ischemic heart disease and other diseases of the circulatory system; Z99.2 Dependence on renal dialysis; Z95.1 Presence of aortocoronary bypass graft; Z90.710 Acquired absence of both cervix and uterus; Z83.3 Family history of diabetes mellitus; Z80.3 Family history of malignant neoplasm of breast; Z82.3 Family history of stroke; Z86.73 Personal history of transient ischemic attack (TIA), and cerebral infarction without residual deficits
CPT/HCPCS: 36415; 36558; 71046; 76775; 77001; 80048; 80053; 80074; 81001; 82570; 82962; 83036; 83735; 83970; 84100; 84156; 84300; 84443; 84484; 85025; 85610; 85730; 87040; 90935; 93005; 93306; 93458; 93567; 94640; 99152; 99291; C1894; G0378; J1642; J1815; J2185; J2250; J2405; J2470; Q9967

== ENCOUNTER 2024-12-29 13:12 | Inpatient (IN) | payer OTHER ==
[~2024-12-29] VITALS: Ht 147.3 cm; Wt 70.6 kg
[~2024-12-29 13:12] MED LIST changes: +ALBU0.084 NEB; +ASPI-543 PO; -CARV-216 PO; -CIPR500T4 PO; +CLON0.1T PO; +HYDR-4798 PO; -HYDR-4833 PO; +LABE200T10 PO; +LEVO500T91 PO; -LOSA-533 PO
--- NOTE | 2024-12-29 14:16 | ECG ---
[facility] Test Date: 2024-12-29 Test Time: 14:00:58 Pat Name: AMEE JONES Department: ER Room: 0280T Gender: F [employer]: ISMAEL : 1960 Requested By: EMERGENCY EMERGENCY Order Number: [id number] Reading MD: Tejas Oquendo Measurements Intervals [place] Rate: 95 P: 66 OR: 141 QRS: 29 QRSD: 83 T: 216 QT: 340 QTc: 428 Interpretive Statements Sinus rhythm Probable LVH with secondary repol abnrm Electronically Signed On 12-31-2024 21:17:17 PDT by Tejas Oquendo Please click the below link to view image of tracing.
[2024-12-29] MEDS: IPRATROPIUM BROM 0.5 MG/2.5ML INH SOL NEB ONE (16:03)
[2024-12-29] MEDS: ALBUTEROL SULF 2.5 MG/0.5ML(0.5%) NEB SOLN NEB ONE ×2 (16:03→16:58)
[2024-12-29 16:10] LABS: Basophils # (auto) 0.1 10 ^3/uL (0-0.2); Basophils % (auto) 0.4 % (0.0-2.0); Eosinophils # (auto) 0 10 ^3/uL (0-0.8); Eosinophils % (auto) 0.3 % (0.0-7.0); Hematocrit 31.9 % (36.0-46.0); Lymphocytes # (auto) 1.1 10 ^3/uL (0.4-5.4); Lymphocytes % (auto) 8.9 % (10.0-50.0); Mean Corpuscular Hemoglobin 30.9 pg (28.0-32.0); Mean Corpuscular Hgb Conc. 31.4 g/dL (32.0-36.0); Mean Corpuscular Volume 98.3 fL (80.0-100.0); Monocytes # (auto) 0.9 10 ^3/uL (0-1.3); Monocytes % (auto) 7.1 % (0.0-12.0); Neutrophils # (auto) 10.3 10 ^3/uL (1.6-8.6); Neutrophils % (auto) 83.3 % (37.0-80.0); Platelet Count (auto) 256 10^3/uL (140-450); Red Blood Cells 3.25 10^6/uL (4.0-5.20); Red Cell Distribution Width 15.8 % (11.8-14.3); White Blood Cell 12.4 10^3/uL (4.4-10.8)
--- NOTE | 2024-12-29 16:18 | DVH ---
CHEST RADIOGRAPH Indication: sob Technique: Single frontal view of the chest was obtained COMPARISON: 11 4 FINDINGS: Lines and Tubes: Central line in the superior vena cava distally Lungs: Clear Pleura: No effusion. No pneumothorax. Cardiomediastinal contours: Moderate cardiomegaly Bones: Unremarkable IMPRESSION: 1. Central line is in the distal superior vena cava. No pneumothorax Moderate cardiomegaly Pulmonary vascular redistribution, unchanged from the prior study
[2024-12-29 16:28] LABS: Alanine Aminotransferase 20 U/L (7-40); Albumin 4.7 g/dL (3.2-4.8); Anion Gap 12 (5-15); BUN/Creatinine Ratio 10.9 (10.0-20.0); Calcium 9.1 mg/dL (8.7-10.4); Glucose 104 mg/dL (74-106); Sodium 143 mmol/L (136-145); Total Protein 7.4 g/dL (5.7-8.2)
[2024-12-29 16:29] LABS: Alkaline Phosphatase 199 U/L (46-116); Aspartate Aminotransferase 10 U/L (13-40); Bilirubin, Total 0.2 mg/dL (0.2-1.0); Blood Urea Nitrogen 37 mg/dL (9-23); Carbon Dioxide 19 mmol/L (20-31); Chloride 112 mmol/L (98-107)
[2024-12-29 16:30] LABS: Potassium 6.1 mmol/L (3.5-5.1)
--- NOTE | 2024-12-29 16:32 | DVH ---
Exam: CT CT AB PEL WO CON-NO ORAL OR IV History: abd pain, distention, diarrhea Comparison Study: CT CT AB PEL WO CON-NO ORAL OR IV on DOS: 01/24/24, CT ABD PELVIS WO CONTRAST on DOS : 09/16/19 Technique: Multidetector spiral CT of the abdomen was performed from lung bases to pubic symphysis. Imaging was performed without IV contrast. Axial, coronal and sagittal multiplanar reformats were ob tained from the axial data set by the technologist. Radiation Dose : 1. Abdomen/Pelvis: CTDIvol 8.89 mGy, DLP 458.52 mGy*cm. Findings: Evaluation of solid organs is limited due to lack of intravenous contrast use. Lung Bases: No acute or significant lung base finding. Moderate cardiomegaly. [id number] hiata l hernia. No pleural or pericardial effusion. Liver: The liver is normal in size. No focal lesions. Gallbladder and Biliary Tree: Cholecystectomy. Spleen: Unremarkable Pancreas: The pancreas is grossly normal in appearance. Adrenal Glands: Unremarkable Kidneys: Solitary left kidney with severe renal artery calcification. Mild atrophic changes of the le ft kidney without obstruction. Bladder: Grossly unremarkable for degree of distention. Bowel: The stomach is grossly normal in appearance. Small bowel and colon are normal in caliber and d istribution. The appendix is not visualized; however, no secondary findings of acute appendicitis id entified. Numerous fluid-filled loops of small bowel identified. No diverticulitis. Normal terminal i leum. Ascites: Absent Lymphadenopathy: No mesenteric, retroperitoneal or periportal lymphadenopathy. Abdominal Wall and Mesentery: Unremarkable. Vasculature: The visualized abdominal aorta is normal in size and caliber. Evaluation of abdominal a nd pelvic vessels is limited due to lack of intravenous contrast. Moderately severe vascular calcific ation of the abdominal aorta common iliac arteries without aneurysm. Pelvic Organs: Unremarkable Musculoskeletal: No aggressive focal bony lesions, acute fractures or dislocation. IMPRESSION: 1. Appendix not identified 2. Severe arteriosclerotic calcific changes of the aorta and both common iliac arteries No abscess Status post cholecystectomy Moderate hiatal hernia Fluid-filled distended stomach. Solitary left kidney Severe vascular calcification of the intrarenal arteries. No diverticulitis Radiation optimization: All CT scans at this facility use at least one of these dose optimization prachi hniques: automated exposure control mA and/or kV adjustment per patient size (includes targeted exam s where dose is matched to clinical indication) or iterative reconstruction.
--- NOTE | 2024-12-29 16:46 | ED.PDOC ---
SOB-HPI HPI Comments 64 y/o F with history of angina, AAA, CAD s/p CABG, COPD on 3L home O2, ESRD w/HD //SAT, HLD, HTN, STEMI, and tobacco cigarette use, presents with 2 day history of shortness of breath, diffuse abdominal pain and distension, diarrhea, subjective fever, and bilateral leg-swelling. Patient reports increasing her home O2 to 5LPM and using multiple at-home breathing treatments with no relief. She describes abdominal pain as "cramping" in quality and having incomplete dialysis on 12/26/24, with 1.1L of fluid removed instead of the usual 2-2.5L because of the abdominal cramping. She denies any recent travel, sick contact, nausea, vomiting, dysuria, or other associated symptoms. Chief Complaint: Shortness of Breath Time Seen by MD: 15:40 Primary Care Provider: UNKNOWN NAME Reviewed notes: Nurses Notes, Medications, Allergies Information Source: Patient Mode of Arrival: Ambulatory Severity: Moderate Timing: Hours Past Medical History PAST MEDICAL HISTORY: Angina, CAD, COPD (3LPM home O2 use), ESRD (w/HD on //SAT), High Lipids, HTN, NM (NSTEMI) Past Medical History (Other): AAA Surgical History: Appendectomy, CABG, Cholecystectomy, (2x), Hysterectomy EXPLOSIVES HANDLER History: No Pertinent EXPLOSIVES HANDLER History Family History Family History: Family hx of HTN Social History Smoker: Cigarettes, Less Than 1 Pack/Day Alcohol: Occasionally Drugs: Denies Drug Use Lives In: Home All Other Systems: Reviewed and Negative (Comprehensive systems review obtained and negative except for what is stated in the HPI.) Physical Exam General Appearance: Mild Distress, Obese HEENT: Other (Vitals and face symmetric. Moist mucous membranes.) Neck: Full Range of Motion, Normal Inspection Respiratory: Decreased Breath Sounds, No Accessory Muscle Use, No Respiratory Distress, Rales Cardiovascular: No JVD, Regular Rate/Rhythm Breast Exam: Deferred Gastrointestinal: Diffuse, Distended, Soft, Tenderness Genitalia: Deferred Pelvic: Deferred Rectal: Deferred Extremities: Leg edema, Normal inspection, Normal range of motion, Non-tender, Pedal edema Neurologic: Alert (Oriented x4), Normal Affect, Normal Mood, Other (Ambulatory) Cerebellar Function: NOT DONE Reflexes: NOT DONE Skin: Dry, Normal Color, Warm Lymphatic: NOT DONE EKG EKG : Comments Sinus rhythm, rate 95, normal intervals, normal axis, LVH with T-wave inversi on/ST-depression in the inferior and lateral leads Was a procedure done? Was a procedure done?: No Differential Dx Differential Diagnosis: Anxiety, Asthma, Bronchitis, CHF, COPD, Myocardial infarction, Panic Attack, Pneumonia, Pulmonary Embolism, Respiratory Distress, URI, Other (Fluid overload) Comments Gastroenteritis, gastritis, bowel obstruction, ischemic bowel, colitis, diverticular disease, UTI, among others X-Ray, Labs, Meds, VS Vital Signs Date Time Temp Pulse Resp B/P (MAP) Pulse Ox O2 Delivery O2 Flow Rate FiO2 12/29/24 17:00 16 Nasal Cannula* 4 36 12/29/24 16:07 20 Nasal Cannula* 4 36 12/29/24 14:12 99 Nasal Cannula* 4 36 12/29/24 14:12 16 99 Nasal Cannula* 4 36 12/29/24 14:05 98.0 98 16 127/51 (76) 99 98.0 12/29/24 14:00 95 Lab Test 12/29/24 16:00 Range/Units White Blood Count 12.4 H 4.4-10.8 10^3/uL Red Blood Count 3.25 L 4.0-5.20 10^6/uL Hemoglobin 10.0 L 12.2-16.2 g/dL Hematocrit 31.9 L 36.0-46.0 % Mean Corpuscular Volume 98.3 80.0-100.0 fL Mean Corpuscular Hemoglobin 30.9 28.0-32.0 pg Mean Corpuscular Hemoglobin Concent 31.4 L 32.0-36.0 g/dL Red Cell Distribution Width 15.8 H 11.8-14.3 % Platelet Count 256 140-450 10^3/uL Mean Platelet Volume 8.8 6.9-10.8 fL Neutrophils (%) (Auto) 83.3 H 37.0-80.0 % Lymphocytes (%) (Auto) 8.9 L 10.0-50.0 % Monocytes (%) (Auto) 7.1 0.0-12.0 % Eosinophils (%) (Auto) 0.3 0.0-7.0 % Basophils (%) (Auto) 0.4 0.0-2.0 % Neutrophils # (Auto) 10.3 H 1.6-8.6 10 ^3/uL Lymphocytes # (Auto) 1.1 0.4-5.4 10 ^3/uL Monocytes # (Auto) 0.9 0-1.3 10 ^3/uL Eosinophils # (Auto) 0 0-0.8 10 ^3/uL Basophils # (Auto) 0.1 0-0.2 10 ^3/uL Nucleated Red Blood Cells 0.0 % Sodium Level 143 136-145 mmol/L Potassium Level 6.1 *H 3.5-5.1 mmol/L Chloride Level 112 H 98-107 mmol/L Carbon Dioxide Level 19 L 20-31 mmol/L Anion Gap 12 5-15 Blood Urea Nitrogen 37 H 9-23 mg/dL Creatinine 3.38 H 0.550-1.02 mg/dL Glomerular Filtration Rate Calc 14 >90 mL/min BUN/Creatinine Ratio 10.9 10.0-20.0 Serum Glucose 104 74-106 mg/dL Calcium Level 9.1 8.7-10.4 mg/dL Total Bilirubin 0.2 0.2-1.0 mg/dL Aspartate Amino Transferase (AST) 10 L 13-40 U/L Alanine Aminotransferase (ALT) 20 7-40 U/L Alkaline Phosphatase 199 H 46-116 U/L Troponin I High Sensitivity 25 </=34 ng/L B-Type Natriuretic Peptide 959.03 0-100 pg/mL Total Protein 7.4 5.7-8.2 g/dL Albumin 4.7 3.2-4.8 g/dL Current Medications Medications (Trade) Dose Ordered Sig/Taina Route Start Time Stop Time Status Last Admin Albuterol (Ventolin Medneb) 5 mg ONCE ONCE NEB 12/29/24 15:45 12/29/24 15:46 DC 12/29/24 16:03 Ipratropium [place] (Atrovent Medneb) 0.5 mg ONCE ONCE NEB 12/29/24 15:45 12/29/24 15:46 DC 12/29/24 16:03 Calcium Gluconate/ Sodium Chloride 50 ml @ 100 mls/hr ONCE ONCE IV 12/29/24 16:45 12/29/24 17:14 DC 12/29/24 19:55 Albuterol (Ventolin Medneb) 15 mg ONCE ONCE NEB 12/29/24 16:45 12/29/24 16:50 DC 12/29/24 16:58 PROCEDURE(s): CXRP - CHEST PORTABLE REASON: sob ORDER NUMBER(s): [id number], ACCESSION NUMBER(s): [id number] CHEST RADIOGRAPH Indication: sob Technique: Single frontal view of the chest was obtained COMPARISON: 11 4 FINDINGS: Lines and Tubes: Central line in the superior vena cava distally Lungs: Clear Pleura: No effusion. No pneumothorax. Cardiomediastinal contours: Moderate cardiomegaly Bones: Unremarkable IMPRESSION: 1. Central line is in the distal superior vena cava. No pneumothorax Moderate cardiomegaly Pulmonary vascular redistribution, unchanged from the prior study EDURE(s): ABPL - CT AB PEL WO CON-NO ORAL OR IV REASON: abd pain, distention, diarrhea ORDER NUMBER(s): [id number], ACCESSION NUMBER(s): [id number] Exam: CT CT AB PEL WO CON-NO ORAL OR IV History: abd pain, distention, diarrhea Comparison Study: CT CT AB PEL WO CON-NO ORAL OR IV on DOS: 01/24/24, CT ABD PELVIS WO CONTRAST on DOS: 09/16/19 Technique: Multidetector spiral CT of the abdomen was performed from lung bases to pubic symphysis. Imaging was performed without IV contrast. Axial, coronal and sagittal multiplanar reformats were obtained from the axial data set by the technologist. Radiation Dose : 1. Abdomen/Pelvis: CTDIvol 8.89 mGy, DLP 458.52 mGy*cm. Findings: Evaluation of solid organs is limited due to lack of intravenous contrast use. Lung Bases: No acute or significant lung base finding. Moderate cardiomegaly. Zgwr-[id number] hiatal hernia. No pleural or pericardial effusion. Liver: The liver is normal in size. No focal lesions. Gallbladder and Biliary Tree: Cholecystectomy. Spleen: Unremarkable Pancreas: The pancreas is grossly normal in appearance. Adrenal Glands: Unremarkable Kidneys: Solitary left kidney with severe renal artery calcification. Mild atrophic changes of the left kidney without obstruction. Bladder: Grossly unremarkable for degree of distention. Bowel: The stomach is grossly normal in appearance. Small bowel and colon are normal in caliber and distribution. The appendix is not visualized; however, no secondary findings of acute appendicitis identified. Numerous fluid-filled loops of small bowel identified. No diverticulitis. Normal terminal ileum. Ascites: Absent Lymphadenopathy: No mesenteric, retroperitoneal or periportal lymphadenopathy. Abdominal Wall and Mesentery: Unremarkable. Vasculature: The visualized abdominal aorta is normal in size and caliber. Evaluation of abdominal and pelvic vessels is limited due to lack of intravenous contrast. Moderately severe vascular calcification of the abdominal aorta common iliac arteries without aneurysm. Pelvic Organs: Unremarkable Musculoskeletal: No aggressive focal bony lesions, acute fractures or dislocation. IMPRESSION: 1. Appendix not identified 2. Severe arteriosclerotic calcific changes of the aorta and both common iliac arteries No abscess Status post cholecystectomy Moderate hiatal hernia Fluid-filled distended stomach. Solitary left kidney Severe vascular calcification of the intrarenal arteries. No diverticulitis Radiation optimization: All CT scans at this facility use at least one of these dose optimization techniques: automated exposure control mA and/or kV adjustment per patient size (includes targeted exams where dose is matched to clinical indication) or iterative reconstruction. X-Ray, Labs, Meds, VS Comment 64-year-old female with a history of end-stage renal disease on dialysis, CAD, hypertension, dyslipidemia and COPD brought in by self complaining of shortness of breath, incomplete last dialysis 3 days ago, associated with abdominal pain Vitals unremarkable. Oxygen saturation 96% on 4 L nasal cannula Exam remarkable for diminished breath sounds, basilar rales, abdominal tenderness and distention and trace lower extremity edema Rhythm strip independently interpreted by me: Sinus rhythm, rate 95, no ectopy. Chest x-ray IMPRESSION: 1. Central line is in the distal superior vena cava. No pneumothorax Moderate cardiomegaly Pulmonary vascular redistribution, unchanged from the prior study CT abdomen and pelvis IMPRESSION: 1. Appendix not identified 2. Severe arteriosclerotic calcific changes of the aorta and both common iliac arteries No abscess Status post cholecystectomy Moderate hiatal hernia Fluid-filled distended stomach. Solitary left kidney Severe vascular calcification of the intrarenal arteries. No diverticulitis CBC remarkable for WBC 12.4, metabolic panel remarkable for potassium 6.4, CO2 19, BUN 37, creatinine 3.38, troponin negative, BNP and UA pending Patient treated with the following in the ED: Albuterol 5 mg/Atrovent 0.5 mg nebulized, Solu-Medrol 125 mg IV, Lasix 40 mg IV, Nitro-Bid 1/2 inch to chest wall, Lokelma 10 g p.o., regular insulin 10 units IV, D50 50 mL IV, calcium gluconate 1 g IV, sodium bicarb 50 mEq IV, albuterol 15 mg nebulized On re-evaluation, patient is not in respiratory distress, saturating 96% on 4 L nasal cannula. Plan is to admit the patient for dialysis and electrolyte correction. Case discussed with who will admit the patient. Time of 1ST Reevaluation: 16:10 Reevaluation 1ST: Unchanged Patient Education/Counseling: Diagnosis, Treatment Family Education/Counseling: No Family Present Departure 1 Departure Time of Disposition: 17:01 Impression: Primary Impression: Fluid overload Qualified Codes: E87.70 - Fluid overload, unspecified Additional Impressions: Hyperkalemia Abdominal pain Qualified Codes: R10.84 - Generalized abdominal pain Disposition: ADMITTED INPATIENT Admit to: [facility] Condition: Guarded Critical Care Note Critical Care Time?: Yes (1 hr-critical care time only) Critical care comment: Critical care time including multiple bedside re-evaluations, review of lab and imaging studies, and discussion of the case with the admitting provider. Patient is high risk for metabolic, respiratory and/or hemodynamic decompensation. Stability Stability form required: No Heart Score Heart Score: Heart Score Response (Comments) Value History Moderate Suspicious [address]-Deviation 2 Age >65 2 Risk Factors >3 or Hx ASHD 2 Troponin Normal limit 0 Total 7 I personally scribed for MARA BENOIT MD ([email or web address]) on 12/29/24 at 16:46. Electronically submitted by Mega Bryant ([email or web address]). I personally scribed for MARA BENOIT MD ([email or web address]) on 12/29/24 at 20:17. Electronically submitted by Mega Bryant ([email or web address]). MARA BENOIT MD December 29, 2024 16:46
[2024-12-29] MEDS ORDERED: TEMAZEPAM 15 MG CAP PO PRN (17:30)
[2024-12-29] MEDS ORDERED: ONDANSETRON HCL 4 MG/2 ML VIAL IV PRN (17:30)
[2024-12-29 19:17] VITALS: PULSE 107; RESP 18; O2SAT 100
[2024-12-29] MEDS: ALBUTEROL SULF 2.5 MG/0.5ML(0.5%) NEB SOLN NEB SCH (19:17)
[2024-12-29] MEDS: IPRATROPIUM BROM 0.5 MG/2.5ML INH SOL NEB SCH (19:17)
[2024-12-29 19:23] VITALS: PULSE 105; RESP 18; O2SAT 100
[2024-12-29] MEDS: CALCIUM GLUC 1,000mg/50ml-NS 50 ML IV ONE (19:55)
[2024-12-29 20:03] VITALS: BP 127/51; PULSE 105; RESP 18; TEMP 98; O2SAT 100
[2024-12-29] MEDS: SODIUM ZIRCONIUM CYCL 10 GM PAK PO ONE (20:16)
[2024-12-29] MEDS: NITROGLYCERIN 2% OINT 1GM PKG TD ONE (20:21)
[2024-12-29] MEDS: DEXTROSE (50%) 50ML SYRG IV ONE (20:31)
[2024-12-29] MEDS: FUROSEMIDE 40 MG/4 ML VIAL IV ONE (20:32)
[2024-12-29] MEDS: SODIUM BICARB 8.4% 50Meq/50ml SYR Vial IV ONE (20:32)
[2024-12-29] MEDS: InsuLIN REG 1unit/0.01ml Soln (100units/ml) IV ONE (20:32)
[2024-12-29] MEDS: PIPERACILLIN-TAZOB 2.25GM 50 ML IV SCH (20:40)
[2024-12-29] MEDS: methylPREDNISolone SOD SUCC 125 MG/2 ML VL IV ONE (20:51)
[2024-12-29 21:00] VITALS: PULSE 110; RESP 19; O2SAT 95
[2024-12-29 22:57] VITALS: BP 157/67; PULSE 98; RESP 18; TEMP 98.2; O2SAT 97
[2024-12-29 23:00] VITALS: BP 157/67; PULSE 98; RESP 18; TEMP 98.2; O2SAT 97
[2024-12-29] MEDS: HYDROcodone-ACET 10/325MG TAB PO PRN (23:48)
[2024-12-29] MEDS: NICOTINE 14 MG/24HR TOPICAL PATCH TD ONE (23:49)
[2024-12-30] VITALS (17 sets, daily range): BP systolic 144–211; BP diastolic 60–93; PULSE 85–107; RESP 18–22; TEMP 97.9–98.4; O2SAT 94–100
[2024-12-30 00:21] LABS: Urine Bacteria FEW /hpf (None Seen); Urine Blood Negative /uL (Negative); Urine Clarity Clear (Clear); Urine Color Colorless (Yellow); Urine Protein, UAD 1+ (Negative); Urine Squamous Epithelial Cell FEW /hpf (<5); Urine Urobilinogen Normal (Negative); Urine WBC < 1 /HPF (0-5)
[2024-12-30] MEDS ORDERED: ATOR10TA52 PO (00:49)
[2024-12-30] MEDS ORDERED: CARV12.544 PO (00:49)
[2024-12-30] MEDS ORDERED: TIZA-142 PO (00:49)
[2024-12-30] MEDS ORDERED: NIFE1TAB30 (00:49)
[2024-12-30] MEDS ORDERED: BUDE1AER6 INH (00:49)
[2024-12-30 06:19] LABS: Basophils # (auto) 0 10 ^3/uL (0-0.2); Basophils % (auto) 0.2 % (0.0-2.0); Eosinophils # (auto) 0 10 ^3/uL (0-0.8); Eosinophils % (auto) 0.1 % (0.0-7.0); Hematocrit 29.3 % (36.0-46.0); Lymphocytes # (auto) 0.5 10 ^3/uL (0.4-5.4); Mean Corpuscular Hemoglobin 33.3 pg (28.0-32.0); Monocytes # (auto) 0.2 10 ^3/uL (0-1.3); Monocytes % (auto) 1.8 % (0.0-12.0); Neutrophils # (auto) 8.6 10 ^3/uL (1.6-8.6); Neutrophils % (auto) 92.9 % (37.0-80.0); Platelet Count (auto) 244 10^3/uL (140-450); Red Blood Cells 2.99 10^6/uL (4.0-5.20); Red Cell Distribution Width 15.7 % (11.8-14.3); White Blood Cell 9.2 10^3/uL (4.4-10.8)
[2024-12-30 06:28] LABS: Alanine Aminotransferase 18 U/L (7-40); Albumin 4.4 g/dL (3.2-4.8); Anion Gap 11 (5-15); BUN/Creatinine Ratio 12.9 (10.0-20.0); Sodium 141 mmol/L (136-145); Total Protein 6.8 g/dL (5.7-8.2)
[2024-12-30 06:34] LABS: Aspartate Aminotransferase 8 U/L (13-40); Bilirubin, Total 0.2 mg/dL (0.2-1.0)
[2024-12-30 06:38] LABS: Carbon Dioxide 20 mmol/L (20-31); Chloride 110 mmol/L (98-107); Glucose 135 mg/dL (74-106)
[2024-12-30 06:39] LABS: Alkaline Phosphatase 179 U/L (46-116); Blood Urea Nitrogen 45 mg/dL (9-23); Calcium 8.5 mg/dL (8.7-10.4); Potassium 6.1 mmol/L (3.5-5.1)
[2024-12-30] MEDS ORDERED: SODIUM CHL 0.9% 1000 ML BAG XX ONE (07:00)
[2024-12-30] MEDS: CALCIUM GLUC 1,000mg/50ml-NS 50 ML IV ONE (08:05)
[2024-12-30] MEDS: SODIUM ZIRCONIUM CYCL 10 GM PAK PO ONE (08:05)
[2024-12-30] MEDS: NICOTINE 14 MG/24HR TOPICAL PATCH TD SCH (08:34)
[2024-12-30] MEDS: SODIUM BICARB 8.4% 50Meq/50ml SYR Vial IV ONE (09:01)
[2024-12-30 11:16] LABS: Hepatitis A Ab IgM Negative; Hepatitis B Core IgM Negative (Negative); Hepatitis B Surface Antigen Negative (Negative); Hepatitis C Antibody Negative (Negative)
--- NOTE | 2024-12-30 11:33 | DVHCONRES ---
Date Seen: December 30, 2024 Resident Creating Document: REGGIE PAGAN RESIDENT Referring Physician Meliza Reason for Consultation ESRD on HD History of Present Illness This is a 64-year-old female with past medical history of hypertension, type 2 diabetes mellitus, end-stage renal disease (Saturday//Saturday) (last hemodialysis on Saturday), COPD with 3.5 L of oxygen through nasal cannula at home, dyslipidemia, CAD with triple bypass. Per patient she started hemodialysis on June of 2024. Patient presented to the ED with chief complaint of acute shortness of breath associated with the abdominal distention and heaviness in the epigastric region associated with mild epigastric pain and bilateral lower extremity swelling. Patient states that upon arrival to the ED she was requiring much more oxygen supplementation compared to her home and they actually went up to 6 L of oxygen through nasal cannula. The patient also reported fever and chills before coming to the ED but no fever was reported since admission. The patient also endorses minimal cough without sputum production. Upon my examination, the patient has bilateral lung crackles and wheezes especially on expiration, there was very mild pedal edema, no abdominal tenderness to palpation and hemodialysis catheter is placed in the right upper thorax. Patient is currently undergoing hemodialysis targeting 3 L of fluid removal at this point. Past Medical History past medical history hypertension type 2 diabetes mellitus end-stage renal disease (Saturday//Saturday) (last hemodialysis on Saturday), Per patient she started hemodialysis on June of 2024 COPD with 3.5 L of oxygen through nasal cannula at home dyslipidemia CAD with triple bypass Past Surgical History Cholecystectomy Appendectomy Bilateral breast reduction Family History: Cerebrovascular accident (CVA) GRANDMOM GRANDFATHER FHx: breast cancer GRANDMOM Family history: Diabetes mellitus G8 MOTHER Family history: Hypertension G8 MOTHER Family History Non contributory Social History denies alcohol or drug consumption. Allergies: Coded Allergies: Diphenhydramine (Verified Allergy, Unknown, 08/01/14) Home Meds Active Scripts Nifedipine (Nifedipine Er) 30 Mg Tab, 60 MG PO Q12H for 60 Days, #240 TAB 1 Refill Prov:RADHA STEVENS DO 12/30/24 Albuterol Sulfate (Albuterol Sulfate) 0.083 % Neb, 1 VIAL NEB Q4HPRN, #50 VIAL Prov:BOLIVAR العلي MD 07/03/24 Labetalol HCl (Labetalol HCl) 200 Mg Tab, 200 MG PO BID for 30 Days, #60 TAB 2 Refills Prov:BOLIVAR العلي MD 07/03/24 Clonidine Hydrochloride (Clonidine Hcl) 0.1 Mg Tab, 0.1 MG PO TID for 30 Days, #90 TAB 1 Refill Prov:BOLIVAR العلي MD 07/03/24 Aspirin (Aspir-Low) 81 Mg Tab, 81 MG PO DAILY, #30 TAB Prov:BOLIVAR العلي MD 07/02/24 Atorvastatin Calcium (ATORVASTATIN CALCIUM) 40 Mg Tab, 40 MG PO DAILY for 30 Days, #30 TAB 1 Refill Prov:RADHA STEVENS DO 01/27/24 Pantoprazole Sodium Sesquihydr (Pantoprazole Sodium) 40 Mg Tab, 40 MG PO BID, #120 TAB Prov:ZECHARIAH RODAS MD 01/09/17 Fluticasone Propionate (FLOVENT HFA 110Mcg INH) 110 Mcg Ih, 2 PUFF INH BID, #1 INHALER 0 Refills Prov:ZECHARIAH RODAS MD 04/22/15 Reported Medications Carvedilol (Carvedilol) 12.5 Mg Tab, 1 TAB PO BID 12/30/24 Csmjfivkzr-Tlaovczbdnream-Lkuj (Breztri Aerosphere 160-9-4.8 Mcg/Act) 1 Aer Aer, INH 12/30/24 Tizanidine Hydrochloride (Tizanidine Hcl) 2 Mg Tab, 1 TAB PO Q12HR for 30 Days, #60 06/30/24 Hydrocodone-Acetaminophen (Hydrocodone Bitartrate/AC 10-325 mg) 1 Tab Tab, 1 TAB PO TID for 30 Days, #90 06/30/24 Fluticasone Furoate (Inhalatio (Arnuity Ellipta) 100 Mcg/Act Inh, 1 PUFF IN DAILY for 90 Days, #90 01/25/24 Escitalopram Oxalate (ESCITALOPRAM OXALATE) 20 Mg Tab, 20 MG PO DAILY, TAB 01/25/24 Trazodone Hcl (Trazodone Hcl) 50 Mg Tab, 50 MG PO HS, MG 01/25/24 Semaglutide (Ozempic) 2 Mg/3 Ml Inj, 0.5 MG SC QWEEKLY 01/25/24 Discontinued Reported Medications Tizanidine Hydrochloride (Tizanidine Hcl) 4 Mg Tab, 1 TAB PO BID 12/30/24 Atorvastatin Calcium (ATORVASTATIN CALCIUM) 10 Mg Tab, 1 TAB PO DAILY 12/30/24 Nifedipine (Nifedipine Er) 60 Mg Tab 12/30/24 Magnesium Oxide (MAGNESIUM OXIDE) 400 Mg Tab, 1 TAB PO DAILY, #30 TAB 5 Refills 09/17/19 Discontinued Scripts Nifedipine (Nifedipine Er) 30 Mg Tab, 90 MG PO DAILY for 30 Days, #90 TAB 2 Refills Prov:BOLIVAR العلي MD 07/03/24 Levofloxacin Hemihydrate (LEVAQUIN 500 MG) 500 Mg Tab, 1 TAB PO DAILY, #7 TAB Prov:BOLIVAR العلي MD 07/02/24 Current Medications Current Medications Medications (Trade) Dose Ordered Sig/Taina Route PRN Reason Start Time Stop Time Status Last Admin Temazepam (Restoril) 15 mg QHSP PRN PO FOR INSOMNIA 12/29/24 17:30 Ondansetron HCl (Zofran) 4 mg Q4HP PRN IV NAUSEA / VOMITING 12/29/24 17:30 Nitroglycerin (Ntrostat Sublingual) 0.4 mg Q5MINP PRN SL FOR CHEST PAIN 12/29/24 17:30 Morphine Sulfate 2 mg Q30M PRN IV FOR CHEST PAIN 12/29/24 17:30 Piperacillin Sod/ Tazobactam Sod 50 ml @ 50 mls/hr Q8HR IV 12/29/24 17:30 12/30/24 05:47 Albuterol (Ventolin Medneb) 2.5 mg Q6HR NEB 12/29/24 18:00 12/30/24 06:18 Ipratropium [place] (Atrovent Medneb) 0.5 mg Q6HR NEB 12/29/24 18:00 12/30/24 06:18 Nicotine (Nicoderm 14MG/ 24HR) 1 patch DAILY TD 12/30/24 10:00 12/30/24 08:34 Acetaminophen/ Hydrocodone Bitart (Stickney 10/325MG Tab) 1 tab Q8HP PRN PO SEVERE PAIN (7-10 PAIN SCALE) 12/29/24 23:30 12/30/24 08:31 Review of Systems ROS Constitutional: Denies weight loss, fever and chills. HEENT: Denies changes in vision and hearing. Respiratory: Reports mild to moderate shortness of breath with minimal dry cough Cardiovascular: Denies chest discomfort or palpitations GI: Reports very mild epigastric discomfort but denies nausea, vomiting or diarrhea : Denies dysuria and urinary frequency. Musculoskeletal: Reports very mild bilateral lower extremity pedal edema. Denies myalgias and joint pain Skin: Denies rash and pruritus. Neurological: Denies dizziness, headache, vision or hearing problems Vital Signs Vital Signs Date Time Temp Pulse Resp B/P (MAP) Pulse Ox O2 Delivery O2 Flow Rate FiO2 12/30/24 09:00 97.9 99 18 165/78 (107) 97 97.9 12/30/24 06:18 Nasal Cannula 4.0 12/30/24 06:18 36 Physical Exam Physical Examination General: Patient alert and oriented in person, place and time. Patient following commands. HEENT: Normocephalic, atraumatic, moist mucous membranes Respiratory/pulmonary: There are very mild crackles on bilateral lung novoa associated with the expiratory wheezes. Currently on 6 L of oxygen through nasal cannula Cardiovascular: Normal heart sounds S1 and S2 with no associated murmurs Abdomen: Abdomen nondistended, there is no pain to palpation in any of the abdominal quadrants, no palpable masses. Extremities: There is very mild bilateral pedal edema that has improved compared to admission per patient. Peripheral Pulses: 3+ Radial (R). 3+ Radial (L). 3+ Dorsalis pedis (R). 3+ Dorsalis pedis(L) Skin: No rashes or pruritus, there is no sacral edema present at this time. Neurological: Intact cranial nerves with no focal neurologic deficits Labs/Diagnostic Data Labs Test 12/30/24 10:01 12/30/24 04:23 12/29/24 23:59 12/29/24 20:25 Range/Units Potassium Level 5.4 H 3.5-5.1 mmol/L White Blood Count 9.2 # 4.4-10.8 10^3/uL Red Blood Count 2.99 L 4.0-5.20 10^6/uL Hemoglobin 10.0 L 12.2-16.2 g/dL Hematocrit 29.3 L 36.0-46.0 % Mean Corpuscular Volume 98.0 80.0-100.0 fL Mean Corpuscular Hemoglobin 33.3 H 28.0-32.0 pg Mean Corpuscular Hemoglobin Concent 34.0 32.0-36.0 g/dL Red Cell Distribution Width 15.7 H 11.8-14.3 % Platelet Count 244 140-450 10^3/uL Mean Platelet Volume 9.2 6.9-10.8 fL Neutrophils (%) (Auto) 92.9 H 37.0-80.0 % Lymphocytes (%) (Auto) 5.0 L 10.0-50.0 % Monocytes (%) (Auto) 1.8 0.0-12.0 % Eosinophils (%) (Auto) 0.1 0.0-7.0 % Basophils (%) (Auto) 0.2 0.0-2.0 % Neutrophils # (Auto) 8.6 1.6-8.6 10 ^3/uL Lymphocytes # (Auto) 0.5 0.4-5.4 10 ^3/uL Monocytes # (Auto) 0.2 0-1.3 10 ^3/uL Eosinophils # (Auto) 0 0-0.8 10 ^3/uL Basophils # (Auto) 0 0-0.2 10 ^3/uL Nucleated Red Blood Cells 0.0 % Sodium Level 141 136-145 mmol/L Chloride Level 110 H 98-107 mmol/L Carbon Dioxide Level 20 20-31 mmol/L Anion Gap 11 5-15 Blood Urea Nitrogen 45 H 9-23 mg/dL Creatinine 3.50 H 0.550-1.02 mg/dL Glomerular Filtration Rate Calc 14 >90 mL/min BUN/Creatinine Ratio 12.9 10.0-20.0 Serum Glucose 135 H 74-106 mg/dL Calcium Level 8.5 L 8.7-10.4 mg/dL Total Bilirubin 0.2 0.2-1.0 mg/dL Aspartate Amino Transferase (AST) 8 L 13-40 U/L Alanine Aminotransferase (ALT) 18 7-40 U/L Alkaline Phosphatase 179 H 46-116 U/L Total Protein 6.8 5.7-8.2 g/dL Albumin 4.4 3.2-4.8 g/dL Urine Color Colorless Yellow Urine Clarity Clear Clear Urine pH 7.0 5.0-9.0 Urine Specific [place] 1.010 1.001-1.035 Urine Protein 1+ H Negative Urine Ketones Negative Negative Urine Blood Negative Negative /uL Urine Nitrite Negative Negative Urine Bilirubin Negative Negative Urine Urobilinogen Normal Negative mg/dL Urine Leukocyte Esterase Negative Negative /uL Urine RBC None seen 0 - 4 /hpf Urine Microscopic WBC < 1 0-5 /HPF Urine Squamous Epithelial Cells Few <5 /hpf Urine Bacteria Few H None Seen /hpf Urine Glucose Trace Normal mg/dL POC Glucose 153 H 70-106 mg/dl Test 12/29/24 17:29 12/29/24 16:00 Range/Units Troponin I High Sensitivity 24 </=34 ng/L B-Type Natriuretic Peptide 959.03 0-100 pg/mL Assessment Assessment/plan End-stage renal disease on hemodialysis (Saturday//Saturday), last hemodialysis on Saturday Hyperkalemia Acute hypoxic respiratory failure in the setting of COPD exacerbation and mild volume overload due to missed hemodialysis yesterday COPD exacerbation, (uses 3.5 L of oxygen at home) Type 2 diabetes mellitus Dyslipidemia History of coronary artery disease with triple bypass Primary hypertension Plan -hyperkalemia protocol was given this morning, reordered potassium levels -plan for hemodialysis today, target to remove 3 L of fluid -medical management for COPD exacerbation per hospitalist -start a renal diet -monitor strict in's and out's -monitor kidney function post dialysis -sliding scale insulin per primary team -restart statin and hypertension medications per hospitalist Goals of care discussed with the patient at bedside for >25min, FULL CODE Plan discussed with Dr. Rodriguez Plan discussed with: Patient JUANDARYL MartinoREGGIE December 30, 2024 11:33 ARTUR RODRIGUEZ MD January 01, 2025 13:34
--- NOTE | 2024-12-30 12:03 | DVHHP2 ---
Admitting Diagnosis: Abdominal Pain History of Present Illness HPI Patient is a 64 with history of ESRD on dialysis, chronic respiratory failure on 3 L at home, history of CABG who presented with abdominal pain for the past several days. Patient apparently missed her dialysis session on Saturday due to persistent cramping. She also notes that she has not been able to complete her dialysis sessions to the full duration due to cramping that occurs. Patient notes that her last dialysis session was on 12/26/2024 with about 1.1 L of fluid removed. Patient notes that she has some abdominal distention. She denies any fever, diarrhea. Patient presented with vitals notable for hypertension. Patient was close to her baseline oxygen at 3-4L. Labs are notable for electrolyte abnormalities, notably hyperkalemia. CT abdomen and pelvis was done which showed a distended stomach. Patient was admitted for urgent dialysis. Home Meds Active Scripts Albuterol Sulfate (Albuterol Sulfate) 0.083 % Neb, 1 VIAL NEB Q4HPRN, #50 VIAL Prov:BOLIVAR العلي MD 07/03/24 Nifedipine (Nifedipine Er) 30 Mg Tab, 90 MG PO DAILY for 30 Days, #90 TAB 2 Refills Prov:BOLIVAR العلي MD 07/03/24 Labetalol HCl (Labetalol HCl) 200 Mg Tab, 200 MG PO BID for 30 Days, #60 TAB 2 Refills Prov:BOLIVAR العلي MD 07/03/24 Clonidine Hydrochloride (Clonidine Hcl) 0.1 Mg Tab, 0.1 MG PO TID for 30 Days, #90 TAB 1 Refill Prov:BOLIVAR العلي MD 07/03/24 Levofloxacin Hemihydrate (LEVAQUIN 500 MG) 500 Mg Tab, 1 TAB PO DAILY, #7 TAB Prov:BOLIVAR العلي MD 07/02/24 Aspirin (Aspir-Low) 81 Mg Tab, 81 MG PO DAILY, #30 TAB Prov:BOLIVAR العلي MD 07/02/24 Atorvastatin Calcium (ATORVASTATIN CALCIUM) 40 Mg Tab, 40 MG PO DAILY for 30 Days, #30 TAB 1 Refill Prov:RADHA STEVENS DO 01/27/24 Pantoprazole Sodium Sesquihydr (Pantoprazole Sodium) 40 Mg Tab, 40 MG PO BID, #120 TAB Prov:ZECHARIAH RODAS MD 01/09/17 Fluticasone Propionate (FLOVENT HFA 110Mcg INH) 110 Mcg Ih, 2 PUFF INH BID, #1 INHALER 0 Refills Prov:ZECHARIAH RODAS MD 04/22/15 Reported Medications Tizanidine Hydrochloride (Tizanidine Hcl) 4 Mg Tab, 1 TAB PO BID 12/30/24 Atorvastatin Calcium (ATORVASTATIN CALCIUM) 10 Mg Tab, 1 TAB PO DAILY 12/30/24 Carvedilol (Carvedilol) 12.5 Mg Tab, 1 TAB PO BID 12/30/24 Ofuavgnccq-Cndektzcysamyt-Ndze (Breztri Aerosphere 160-9-4.8 Mcg/Act) 1 Aer Aer, INH 12/30/24 Nifedipine (Nifedipine Er) 60 Mg Tab 12/30/24 Tizanidine Hydrochloride (Tizanidine Hcl) 2 Mg Tab, 1 TAB PO Q12HR for 30 Days, #60 06/30/24 Hydrocodone-Acetaminophen (Hydrocodone Bitartrate/AC 10-325 mg) 1 Tab Tab, 1 TAB PO TID for 30 Days, #90 06/30/24 Fluticasone Furoate (Inhalatio (Arnuity Ellipta) 100 Mcg/Act Inh, 1 PUFF IN STEFFI Y for 90 Days, #90 01/25/24 Escitalopram Oxalate (ESCITALOPRAM OXALATE) 20 Mg Tab, 20 MG PO DAILY, TAB 01/25/24 Trazodone Hcl (Trazodone Hcl) 50 Mg Tab, 50 MG PO HS, MG 01/25/24 Semaglutide (Ozempic) 2 Mg/3 Ml Inj, 0.5 MG SC QWEEKLY 01/25/24 Magnesium Oxide (MAGNESIUM OXIDE) 400 Mg Tab, 1 TAB PO DAILY, #30 TAB 5 Refills 09/17/19 Past Medical History Cardiac: HTN Pulmonary: COPD Renal/: ESRD HD/PD Patient Family History: Cerebrovascular accident (CVA) GRANDMOM GRANDFATHER FHx: breast cancer GRANDMOM Family history: Diabetes mellitus G8 MOTHER Family history: Hypertension G8 MOTHER Review of Systems Constitutional: Weakness Pulmonary/Respiratory: Dyspnea Gastrointestinal: Abdominal Pain H&P Exam Vital Signs Vital Signs Date Time Temp Pulse Resp B/P (MAP) Pulse Ox O2 Delivery O2 Flow Rate FiO2 12/30/24 11:34 95 Nasal Cannula 4.0 12/30/24 11:34 105 22 12/30/24 11:34 36 12/30/24 09:00 97.9 165/78 (107) 97.9 General Appeara: Well developed Pulmonary/Respiratory: Normal inspection, Normal breath sounds Cardiovascular/Chest: Tachycardia Appearance: Appropriate appearance Labs/Xrays Labs Test 12/30/24 10:01 12/30/24 04:23 12/29/24 23:59 12/29/24 20:25 Range/Units Potassium Level 5.4 H 3.5-5.1 mmol/L White Blood Count 9.2 # 4.4-10.8 10^3/uL Red Blood Count 2.99 L 4.0-5.20 10^6/uL Hemoglobin 10.0 L 12.2-16.2 g/dL Hematocrit 29.3 L 36.0-46.0 % Mean Corpuscular Volume 98.0 80.0-100.0 fL Mean Corpuscular Hemoglobin 33.3 H 28.0-32.0 pg Mean Corpuscular Hemoglobin Concent 34.0 32.0-36.0 g/dL Red Cell Distribution Width 15.7 H 11.8-14.3 % Platelet Count 244 140-450 10^3/uL Mean Platelet Volume 9.2 6.9-10.8 fL Neutrophils (%) (Auto) 92.9 H 37.0-80.0 % Lymphocytes (%) (Auto) 5.0 L 10.0-50.0 % Monocytes (%) (Auto) 1.8 0.0-12.0 % Eosinophils (%) (Auto) 0.1 0.0-7.0 % Basophils (%) (Auto) 0.2 0.0-2.0 % Neutrophils # (Auto) 8.6 1.6-8.6 10 ^3/uL Lymphocytes # (Auto) 0.5 0.4-5.4 10 ^3/uL Monocytes # (Auto) 0.2 0-1.3 10 ^3/uL Eosinophils # (Auto) 0 0-0.8 10 ^3/uL Basophils # (Auto) 0 0-0.2 10 ^3/uL Nucleated Red Blood Cells 0.0 % Sodium Level 141 136-145 mmol/L Chloride Level 110 H 98-107 mmol/L Carbon Dioxide Level 20 20-31 mmol/L Anion Gap 11 5-15 Blood Urea Nitrogen 45 H 9-23 mg/dL Creatinine 3.50 H 0.550-1.02 mg/dL Glomerular Filtration Rate Calc 14 >90 mL/min BUN/Creatinine Ratio 12.9 10.0-20.0 Serum Glucose 135 H 74-106 mg/dL Calcium Level 8.5 L 8.7-10.4 mg/dL Total Bilirubin 0.2 0.2-1.0 mg/dL Aspartate Amino Transferase (AST) 8 L 13-40 U/L Alanine Aminotransferase (ALT) 18 7-40 U/L Alkaline Phosphatase 179 H 46-116 U/L Total Protein 6.8 5.7-8.2 g/dL Albumin 4.4 3.2-4.8 g/dL Hepatitis A IgM Antibody Negative Hepatitis B Surface Antigen Negative Negative Hepatitis B Core IgM Antibody Negative Negative Hepatitis C Antibody Negative Negative Urine Color Colorless Yellow Urine Clarity Clear Clear Urine pH 7.0 5.0-9.0 Urine Specific [place] 1.010 1.001-1.035 Urine Protein 1+ H Negative Urine Ketones Negative Negative Urine Blood Negative Negative /uL Urine Nitrite Negative Negative Urine Bilirubin Negative Negative Urine Urobilinogen Normal Negative mg/dL Urine Leukocyte Esterase Negative Negative /uL Urine RBC None seen 0 - 4 /hpf Urine Microscopic WBC < 1 0-5 /HPF Urine Squamous Epithelial Cells Few <5 /hpf Urine Bacteria Few H None Seen /hpf Urine Glucose Trace Normal mg/dL POC Glucose 153 H 70-106 mg/dl Test 12/29/24 17:29 12/29/24 16:00 Range/Units Troponin I High Sensitivity 24 </=34 ng/L B-Type Natriuretic Peptide 959.03 0-100 pg/mL Assessment/Plan Primary Diagnosis 1. Abdominal Pain 2' Diagnosis/Co-morbidities 2. ESRD on HD 3. Chronic Respiratory Failure on 3L 4. Hyperkalemia Plan - Admit to telemetry and nephrology consulted - Plan for dialysis - Continue Zosyn for abdominal pain. Will plan to de-escalate. Unlikely to have sepsis as no infectious source identified, no fever, no leukocytosis. -PT eval ordered Plan discussed with: Patient RADHA STEVENS DO December 30, 2024 12:03
[2024-12-30] MEDS: cloNIDine HCL 0.1 MG TAB PO ONE (14:15)
[2024-12-30] MEDS: ALBUTEROL SULF 2.5 MG/0.5ML(0.5%) NEB SOLN NEB ONE (14:38)
[2024-12-30 15:09] LABS: Alanine Aminotransferase 22 U/L (7-40); Albumin 4.8 g/dL (3.2-4.8); Anion Gap 13 (5-15); Aspartate Aminotransferase 22 U/L (13-40); BUN/Creatinine Ratio 10.1 (10.0-20.0); Bilirubin, Total 0.3 mg/dL (0.2-1.0); Blood Urea Nitrogen 18 mg/dL (9-23); Calcium 9.5 mg/dL (8.7-10.4); Carbon Dioxide 27 mmol/L (20-31); Chloride 101 mmol/L (98-107); Potassium 4.1 mmol/L (3.5-5.1); Sodium 141 mmol/L (136-145); Total Protein 7.6 g/dL (5.7-8.2)
[2024-12-30 15:15] LABS: Alkaline Phosphatase 203 U/L (46-116); Glucose 138 mg/dL (74-106)
[2024-12-30] MEDS: NIFEdipine ER 30 MG TAB PO SCH (16:44)
[2024-12-30] MEDS: LABETALOL HCL 20 MG/4 ML VL IV ONE (16:45)
[2024-12-30] MEDS: hydrALAZINE HCL 20 MG/ML VL IV ONE (17:39)
--- NOTE | 2024-12-30 17:52 | ECG ---
[facility] Test Date: 2024-12-30 Test Time: 17:43:59 Pat Name: AMEE JONES Department: Respiratoy Room: 0280T A Gender: F Unit Controller: JOSE : 1960 Requested By: RADHA STEVENS Order Number: [id number] Reading MD: Tejas Oquendo Measurements Intervals [place] Rate: 86 P: 64 [place]: 137 QRS: 29 QRSD: 95 T: 210 QT: 411 QTc: 492 Interpretive Statements Sinus rhythm Probable left atrial enlargement LVH with secondary repolarization abnormality Anterior Q waves, possibly due to LVH Electronically Signed On 12-31-2024 20:08:56 PDT by Tejas Oquendo Please click the below link to view image of tracing.
[2024-12-30] MEDS ORDERED: methylPREDNISolone SOD SUCC 40 MG/ML VL IV ONE (18:00)
[2024-12-30] MEDS ORDERED: FAMOTIDINE (10MG/ML) 2ML VL IV ONE (18:00)
[2024-12-30] MEDS ORDERED: MORPHINE SULFATE INJ 2 MG/ml SYRG IV ONE (18:00)
[2024-12-30] MEDS: NITROGLYCERIN 0.4 MG SL TAB SL PRN (18:05)
[2024-12-30] MEDS: MORPHINE SULFATE INJ 2 MG/ml SYRG IV PRN (18:07)
[2024-12-30] MEDS ORDERED: NIFE1TAB31 PO (18:50)
[2024-12-30] MEDS ORDERED: EPOETIN ALFA-EPBX 4,000 UNIT/ML VIAL SC ONE (21:00)
== END 2024-12-30 20:49 | disposition home or self-care (01) | DRG 640 ==
LOC: ER 13:16 → OVERFLOW 17:26 → TELE-WESTW 22:34
PROVIDERS: ADMIT Student in an Organized Health Care Education/Training Program; ATTEND Student in an Organized Health Care Education/Training Program
PROC: 5A1D70Z Performance of Urinary Filtration, Intermittent, Less than 6 Hours Per Day (ICD-10-PCS; principal; 2024-12-30)
DX: E87.5 Hyperkalemia (principal); J96.21 Acute and chronic respiratory failure with hypoxia; N18.6 End stage renal disease; J44.1 Chronic obstructive pulmonary disease with (acute) exacerbation; I12.0 Hypertensive chronic kidney disease with stage 5 chronic kidney disease or end stage renal disease; F17.210 Nicotine dependence, cigarettes, uncomplicated; E87.70 Fluid overload, unspecified; E78.5 Hyperlipidemia, unspecified; E11.22 Type 2 diabetes mellitus with diabetic chronic kidney disease; I25.10 Atherosclerotic heart disease of native coronary artery without angina pectoris; Z95.1 Presence of aortocoronary bypass graft; Z82.49 Family history of ischemic heart disease and other diseases of the circulatory system; Z79.82 Long term (current) use of aspirin; Z79.899 Other long term (current) drug therapy; Z79.891 Long term (current) use of opiate analgesic; Z79.1 Long term (current) use of non-steroidal anti-inflammatories (NSAID); Z86.73 Personal history of transient ischemic attack (TIA), and cerebral infarction without residual deficits; Z83.3 Family history of diabetes mellitus; Z91.158 Patient's noncompliance with renal dialysis for other reason; I25.2 Old myocardial infarction; Z90.49 Acquired absence of other specified parts of digestive tract; Z90.710 Acquired absence of both cervix and uterus; Z99.2 Dependence on renal dialysis
CPT/HCPCS: 36415; 71045; 74176; 80053; 80074; 81001; 82962; 83880; 84132; 84484; 85025; 87081; 90935; 93005; 94640; 96365; 96375; 97163; 99291; G0378; J1642; J1815; J2543

== ENCOUNTER 2025-06-21 17:49 | Inpatient (IN) | payer OTHER ==
[~2025-06-21] VITALS: Ht 147.3 cm; Wt 65.0 kg
[~2025-06-21 17:49] MED LIST changes: +BUDE1AER6 INH; +CARV12.544 PO; -LEVO500T91 PO; -MAGN400T40 PO
[2025-06-21 18:00] VITALS: PULSE 84; RESP 22; O2SAT 99
--- NOTE | 2025-06-21 18:26 | ECG ---
[facility] Test Date: 2025-06-21 Test Time: 17:49:39 Pat Name: AMEE JONES Department: [facility] ED Patient ID: [id number] Room: [address] [place] [address] Gender: F [employer] Supervisor: sara : 1960 Requested By: EMERGENCY EMERGENCY Order Number: [id number] Reading MD: Tejas Oquendo Measurements Intervals [place] Rate: 93 P: 70 [place]: 146 QRS: 43 QRSD: 99 T: 219 QT: 369 QTc: 459 Interpretive Statements Sinus rhythm Probable left atrial enlargement LVH with secondary repolarization abnormality Artifact in lead(s) I,II,III,aVR,aVL,aVF,V1,V2,V3,V4 Electronically Signed On 06-29-2025 13:15:02 PST by Tejas Oquendo Please click the below link to view image of tracing.
--- NOTE | 2025-06-21 18:57 | ED.PDOC ---
History of Present Illness HPI Comments 64-year-old female who is brought in by ambulance for chief complaint of shortness of breath and nonproductive cough. Significant history of angina, chronic respiratory failure, CAD, CABG, COPD - 3LPM home O2 dependency, HLD, HTN, KS, and tobacco cigarette use. She is stated to have missed her dialysis sessions for over the past 2 weeks. Patient received breathing treatment, with mild improvement, EN route by EMS personnel. She denies on having any chest pain, congestion, wheezing, fever, chills, or further acute symptoms. REVIEW OF SYSTEMS: General: No fever, no chills, or fatigue HEENT: No sore throat, no earache, no congestion, no neck pain. Cardiac: No chest pain. No palpitations. Lungs: Shortness of breath and cough GI: No nausea, no vomiting, no diarrhea, no constipation, no abdominal pain : No dysuria, frequency, or urgency. No hematuria. Musculoskeletal: No joint pain , no joint swelling, no extremity edema. Skin: No rash, no itching. Neuro: No headache, no dizziness, no weakness PHYSICAL EXAM: General: Awake, alert and oriented. No acute distress. Skin: Skin in warm, dry and intact. Appropriate color for ethnicity. HEENT: The head is normocephalic and atraumatic. Conjunctivae are clear without exudates or hemorrhage. Sclera is non-icteric. EOM are intact. No signs of nystagmus. Eyelids are normal in appearance without swelling or lesions. Oral mucosa is pink and moist Neck: The neck is supple with normal range of motion. No JVD. Cardiac: Heart rate and rhythm are normal. No murmurs, gallops, or rubs are auscultated. Respiratory: No signs of respiratory distress. Lung sounds are clear in all lobes bilaterally without rales, rhonchi, or wheezes. Abdominal: Abdomen is soft, non-tender without distention, guarding or rigidity. Bowel sounds are present and normoactive in all four quadrants. Extremities: Upper and lower extremities are atraumatic in appearance without deformity or edema. Neurological: The patient is awake, alert and oriented to person, place, and time with normal speech. Speech is clear. There is no facial asymmetry. Psychiatric: Appropriate mood and affect. Good judgement and insight. Chief Complaint: Shortness of Breath Time Seen by MD: 18:10 Primary Care Provider: UNKNOWN NAME Allergies: Coded Allergies: Diphenhydramine (Verified Allergy, Unknown, 08/01/14) Home Meds Active Scripts Nifedipine (Nifedipine Er) 30 Mg Tab, 60 MG PO Q12H for 60 Days, #240 TAB 1 Refill Prov:RADHA STEVENS DO 12/30/24 Albuterol Sulfate (Albuterol Sulfate) 0.083 % Neb, 1 VIAL NEB Q4HPRN, #50 VIAL Prov:BOLIVAR العلي MD 07/03/24 Labetalol HCl (Labetalol HCl) 200 Mg Tab, 200 MG PO BID for 30 Days, #60 TAB 2 Refills Prov:BOLIVAR العلي MD 07/03/24 Clonidine Hydrochloride (Clonidine Hcl) 0.1 Mg Tab, 0.1 MG PO TID for 30 Days, #90 TAB 1 Refill Prov:BOLIVAR العلي MD 07/03/24 Aspirin (Aspir-Low) 81 Mg Tab, 81 MG PO DAILY, #30 TAB Prov:BOLIVAR العلي MD 07/02/24 Atorvastatin Calcium (ATORVASTATIN CALCIUM) 40 Mg Tab, 40 MG PO DAILY for 30 Days, #30 TAB 1 Refill Prov:RADHA STEVENS DO 01/27/24 Pantoprazole Sodium Sesquihydr (Pantoprazole Sodium) 40 Mg Tab, 40 MG PO BID, #120 TAB Prov:ZECHARIAH RODAS MD 01/09/17 Fluticasone Propionate (FLOVENT HFA 110Mcg INH) 110 Mcg Ih, 2 PUFF INH BID, #1 INHALER 0 Refills Prov:ZECHARIAH RODAS MD 04/22/15 Reported Medications Carvedilol (Carvedilol) 12.5 Mg Tab, 1 TAB PO BID 12/30/24 Rouplikofa-Kbdisrpenmjuzr-Ukfy (Breztri Aerosphere 160-9-4.8 Mcg/Act) 1 Aer Aer, INH 12/30/24 Tizanidine Hydrochloride (Tizanidine Hcl) 2 Mg Tab, 1 TAB PO Q12HR for 30 Days, #60 06/30/24 Hydrocodone-Acetaminophen (Hydrocodone Bitartrate/AC 10-325 mg) 1 Tab Tab, 1 TAB PO TID for 30 Days, #90 11/5/24 Fluticasone Furoate (Inhalatio (Arnuity Ellipta) 100 Mcg/Act Inh, 1 PUFF IN DAILY for 90 Days, #90 01/25/24 Escitalopram Oxalate (ESCITALOPRAM OXALATE) 20 Mg Tab, 20 MG PO DAILY, TAB 01/25/24 Trazodone Hcl (Trazodone Hcl) 50 Mg Tab, 50 MG PO HS, MG 01/25/24 Semaglutide (Ozempic) 2 Mg/3 Ml Inj, 0.5 MG SC QWEEKLY 01/25/24 Mode of Arrival: EMS Past Medical History PAST MEDICAL HISTORY: Angina, CAD, COPD (3 L home O2 dependency), ESRD (HD/PD), High Lipids, HTN, KS Past Medical History (Other): History of chronic respiratory failure Surgical History: Appendectomy, CABG, Cholecystectomy, , Hysterectomy 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 Was a procedure done?: No EKG EKG : Pulse Rate (adult): 93 [place]: Normal Cardiac Rhythm: NSR Block: None Hypertrophy: None ST: Normal Differential Dx Considerations may include: Differential diagnoses considered includebut arenot limited to acute Bronchitis, Asthma, COPD, Pneumothorax, PE, CHF, Pulmonary HTN, Anemia, CO Poisoning, Methemoglobinemia, Hyperventilation, Metabolic Acidosis, Pulmonary Edema, Pneumonia, ACS, Pericardial Tamponade, Anxiety, other X-Ray, Labs, Meds, VS Vital Signs Date Time Temp Pulse Resp B/P (MAP) Pulse Ox O2 Delivery O2 Flow Rate FiO2 06/21/25 22:22 86 17 180/76 (110) 100 06/21/25 22:21 87 182/74 06/21/25 22:11 86 14 207/73 (117) 100 06/21/25 21:21 123 249/106 06/21/25 21:05 126 06/21/25 21:00 278/128 (178) 06/21/25 20:45 219/89 (132) 06/21/25 20:30 230/113 (152) 06/21/25 20:28 18 100 Nasal Cannula* 5 40 06/21/25 20:23 76 21 99 Nasal Cannula* 5 40 06/21/25 20:15 97.9 76 21 194/52 (99) 99 97.9 06/21/25 19:12 225/76 06/21/25 18:57 93 06/21/25 18:00 84 22 99 Nasal Cannula* 5 40 06/21/25 18:00 99.0 87 22 236/98 (144) 97 99.0 06/21/25 17:52 97.6 100 20 220/147 98 97.6 06/21/25 17:49 93 Lab Test 06/21/25 21:39 06/21/25 20:30 06/21/25 20:23 06/21/25 20:02 Range/Units Sodium Level 146 H 136-145 mmol/L Potassium Level 5.5 H 3.5-5.1 mmol/L Chloride Level 116 H 98-107 mmol/L Carbon Dioxide Level 16 L 20-31 mmol/L Anion Gap 14 5-15 Blood Urea Nitrogen 56 #H 9-23 mg/dL Creatinine 4.27 H 0.550-1.02 mg/dL Glomerular Filtration Rate Calc 11 >90 mL/min BUN/Creatinine Ratio 13.1 10.0-20.0 Serum Glucose 179 H 74-106 mg/dL Calcium Level 9.2 8.7-10.4 mg/dL Troponin I High Sensitivity 52 *H 46 *H </=34 ng/L Influenza Type A Antigen Negative Negative Influenza Type B Antigen Negative Negative SARS-CoV-2 Antigen (Rapid) Negative NEGATIVE POC Glucose 103 70-106 mg/dl Test 06/21/25 18:59 Range/Units White Blood Count 8.2 4.4-10.8 10^3/uL Red Blood Count 3.88 L 4.0-5.20 10^6/uL Hemoglobin 12.3 12.2-16.2 g/dL Hematocrit 38.4 36.0-46.0 % Mean Corpuscular Volume 99.2 80.0-100.0 fL Mean Corpuscular Hemoglobin 31.8 28.0-32.0 pg Mean Corpuscular Hemoglobin Concent 32.0 32.0-36.0 g/dL Red Cell Distribution Width 14.5 H 11.8-14.3 % Platelet Count 248 140-450 10^3/uL Mean Platelet Volume 9.1 6.9-10.8 fL Neutrophils (%) (Auto) 77.8 37.0-80.0 % Lymphocytes (%) (Auto) 14.6 10.0-50.0 % Monocytes (%) (Auto) 4.8 0.0-12.0 % Eosinophils (%) (Auto) 2.2 0.0-7.0 % Basophils (%) (Auto) 0.6 0.0-2.0 % Neutrophils # (Auto) 6.4 1.6-8.6 10 ^3/uL Lymphocytes # (Auto) 1.2 0.4-5.4 10 ^3/uL Monocytes # (Auto) 0.4 0-1.3 10 ^3/uL Eosinophils # (Auto) 0.2 0-0.8 10 ^3/uL Basophils # (Auto) 0 0-0.2 10 ^3/uL Nucleated Red Blood Cells 0.1 % Sodium Level 145 136-145 mmol/L Potassium Level 6.2 *H 3.5-5.1 mmol/L Chloride Level 116 H 98-107 mmol/L Carbon Dioxide Level 18 L 20-31 mmol/L Anion Gap 11 5-15 Blood Urea Nitrogen 44 H 9-23 mg/dL Creatinine 4.35 H 0.550-1.02 mg/dL Glomerular Filtration Rate Calc 11 >90 mL/min BUN/Creatinine Ratio 10.1 10.0-20.0 Serum Glucose 97 74-106 mg/dL Calcium Level 9.0 8.7-10.4 mg/dL Troponin I High Sensitivity 41 *H </=34 ng/L B-Type Natriuretic Peptide 920.46 0-100 pg/mL Current Medications Medications (Trade) Dose Ordered Sig/Taina Route Start Time Stop Time Status Last Admin Furosemide (Lasix Injection) 80 mg ONCE ONCE IV 06/21/25 19:00 06/21/25 19:01 DC 06/21/25 19:12 Acetaminophen (Tylenol Tablet Or Capsule) 1,000 mg ONCE ONCE PO 06/21/25 19:00 06/21/25 19:01 DC 06/21/25 19:12 Tramadol HCl (Ultram) 50 mg ONCE ONCE PO 06/21/25 19:00 06/21/25 19:01 DC 06/21/25 19:13 Insulin Human Regular (InsuLIN R) 10 units ONCE ONCE IV 06/21/25 19:45 06/21/25 20:08 DC 06/21/25 20:47 Dextrose 50 ml ONCE ONCE IV 06/21/25 19:45 06/21/25 20:08 DC 06/21/25 20:46 Albuterol (Ventolin Medneb) 20 mg ONCE ONCE NEB 06/21/25 19:45 06/21/25 20:08 DC 06/21/25 20:22 Sodium Bicarbonate 50 ml ONCE ONCE IV 06/21/25 19:45 06/21/25 20:08 DC 06/21/25 20:46 Calcium Gluconate/ Sodium Chloride 50 ml @ 120 mls/hr ONCE ONCE IV 06/21/25 19:45 06/21/25 20:09 DC 06/21/25 20:46 Diagnostic Test (Pha) (Accu-Chek Comfort Curve T) 1 strip ONCE STAT 06/21/25 19:44 06/21/25 20:08 DC 06/21/25 20:25 Labetalol HCl (Labetalol HCl) 10 mg ONCE ONCE IV 06/21/25 21:00 06/21/25 21:01 DC 06/21/25 21:21 Oxycodone HCl (OxyCONTIN ER Tablet) 10 mg ONCE ONCE PO 06/21/25 21:00 06/21/25 21:01 DC 06/21/25 21:28 [place] [id number] Ph: [phone] DIAGNOSTIC IMAGING Diagnostic Imaging Report : [id number] Signed PATIENT: AMEE JONES ACCT: [id number] UNIT: [id number] : 1960 LOC: ER ROOM / BED: / AGE / SEX: 64 / F ADM STATUS: REG ER SERVICE 47 ORDERING PHYSICIAN: DANISHA NUR MD PROCEDURE(s): CXR1 - CHEST XRAY 1 VIEW REASON: cp ORDER NUMBER(s): [id number], ACCESSION NUMBER(s): [id number] CLINICAL HISTORY: cp TECHNIQUE: Single view of the chest was obtained. COMPARISON: XY CHEST PORTABLE on DOS: 12/29/24, XY CHEST TWO VIEWS ROUTINE on DOS: 06/29/24 FINDINGS: A tunneled right dialysis catheter terminates in the cavoatrial junction. There are midline sternotomy wires and a left atrial closure device. The heart size is mildly enlarged with pulmonary vascular congestion. There is no dense consolidation. IMPRESSION: Pulmonary vascular congestion. ATED BY: ADDIS SPANGLER MD DICTATED DATE/TIME: 06/21/251918 SIGNED BY: ADDIS SPANGLER MD SIGNED DATE/TIME: 06/21/251918 CC: Time of 1ST Reevaluation: 18:40 Reevaluation 1ST: Unchanged Patient Education/Counseling: Treatment, Other (Need for admission ) Family Education/Counseling: No Family Present SEPSIS Sepsis Screen Date sepsis recognized/suspect: Jun 21, 2025 Time Sepsis recognized/suspect: 1754 Recent Procedure: No On Antibiotic Therapy: No Respiratory Rate >20: No Heart Rate >90: No Temp<36 C (96.8 F) or >38.3 C: No SBP <90 or MAP <65 mmHG: No New Acute Mental Status Change: No Is the patient on CPAP, BIPAP,: No Physician Orders Chest Xray 1 View (06/21/25 18:48) Vital Signs Q1HR (06/21/25 18:48) Saline Lock (06/21/25 18:48) Meat Curer (06/21/25 ) Dextrose 50% Syringe (06/21/25 19:45) Dextrose 50% Syringe (06/21/25 19:45) Admit (06/21/25 23:08) Complete Blood Count (06/22/25 06:00) Comprehensive Metabolic Panel (06/22/25 06:00) Nitroglycerin Sublingual (Ntrostat Subli (06/21/25 23:15) Morphine Sulfate Injection (06/21/25 23:15) Stat Ekg For Chest Pain (06/21/25 23:08) Notify Md Of Changes From Base (06/21/25 23:08) City Manager For 24 Hours (06/21/25 23:08) Emergency Dysrhythmia Protocol (06/21/25 23:08) Rhythm Strips Once Every Shift (06/21/25 23:08) Oxygen By Nasal Cannula (06/21/25 23:08) *[facility] (06/21/25 23:08) Npo Except For Medications (06/21/25 23:08) Npo (Nothing By Mouth) Diet (06/21/25 Breakfast) Abg W/ Co-Ox (06/21/25 23:08) Albuterol Medneb (Ventolin Medneb) (06/22/25 00:00) Ipratropium Medneb (Atrovent Medneb) (06/22/25 00:00) Vital Signs Date Time Temp Pulse Resp B/P (MAP) Pulse Ox O2 Delivery O2 Flow Rate FiO2 06/21/25 22:22 86 17 180/76 (110) 100 06/21/25 22:21 87 182/74 06/21/25 22:11 86 14 207/73 (117) 100 06/21/25 21:21 123 249/106 06/21/25 21:05 126 06/21/25 21:00 278/128 (178) 06/21/25 20:45 219/89 (132) 06/21/25 20:30 230/113 (152) 06/21/25 20:28 18 100 Nasal Cannula* 5 40 06/21/25 20:23 76 21 99 Nasal Cannula* 5 40 06/21/25 20:15 97.9 76 21 194/52 (99) 99 97.9 06/21/25 19:12 225/76 06/21/25 18:57 93 06/21/25 18:00 84 22 99 Nasal Cannula* 5 40 06/21/25 18:00 99.0 87 22 236/98 (144) 97 99.0 06/21/25 17:52 97.6 100 20 220/147 98 97.6 06/21/25 17:49 93 Laboratory Tests Test 06/21/25 18:59 White Blood Count 8.2 10^3/uL (4.4-10.8) Medications Medications Dose Ordered Sig/Taina Route Start Time Stop Time Status Last Admin Dose Admin Acetaminophen 1,000 mg ONCE ONCE PO 06/21/25 19:00 06/21/25 19:01 DC 06/21/25 19:12 Albuterol 20 mg ONCE ONCE NEB 06/21/25 19:45 06/21/25 20:08 DC 06/21/25 20:22 Calcium Gluconate/ Sodium Chloride 50 ml @ 120 mls/hr ONCE ONCE IV 06/21/25 19:45 06/21/25 20:09 DC 06/21/25 20:46 Dextrose 50 ml ONCE ONCE IV 06/21/25 19:45 06/21/25 20:08 DC 06/21/25 20:46 Diagnostic Test (Pha) 1 strip ONCE STAT 06/21/25 19:44 06/21/25 20:08 DC 06/21/25 20:25 Furosemide 80 mg ONCE ONCE IV 06/21/25 19:00 06/21/25 19:01 DC 06/21/25 19:12 Insulin Human Regular 10 units ONCE ONCE IV 06/21/25 19:45 06/21/25 20:08 DC 06/21/25 20:47 Labetalol HCl 10 mg ONCE ONCE IV 06/21/25 21:00 06/21/25 21:01 DC 06/21/25 21:21 Oxycodone HCl 10 mg ONCE ONCE PO 06/21/25 21:00 06/21/25 21:01 DC 06/21/25 21:28 Sodium Bicarbonate 50 ml ONCE ONCE IV 06/21/25 19:45 06/21/25 20:08 DC 06/21/25 20:46 Tramadol HCl 50 mg ONCE ONCE PO 06/21/25 19:00 06/21/25 19:01 DC 06/21/25 19:13 Departure 1 Departure Time of Disposition: 19:46 Impression: Primary Impression: End stage renal disease on dialysis Additional Impressions: Missed dialysis Hyperkalemia Elevated troponin Pulmonary edema Disposition: ADMITTED INPATIENT Admit to: Tele Condition: Serious Comments MDM: 64-year-old female who missed dialysis Hyperkalemia treatment initiated in the ED Patient admitted to hospitalist service for further treatment, evaluation and monitoring. Case was discussed with Dr. Dow at 8:43 p.m. Extensive evaluation was performed in attempt to identify or rule out: (See differential diagnosis section) The following tests were ordered, and results were reviewed by me and discussed with patient: (See diagnostic results section) The following test were independently interpreted by me: N/A I reviewed and agreed with the following test results read by other providers: Chest x-ray I reviewed the following notes from the pt's past medical encounters: December 29, 2024 encounter for abdominal pain Additional information was gathered from interviewing the following independent historians: EMS personnel Decision regarding hospitalization or escalation of hospital level of care: Risk and benefits of admission for further treatment of patient's condition was considered. Due to patient's current clinical condition, high risk of decline and poor outcome if discharged and need for further inpatient management and monitoring, patient will be admitted to the hospital. Critical Care Note Critical Care Time?: No Stability Stability form required: No Heart Score Heart Score: Heart Score Response (Comments) Value History Moderate Suspicious 1 EKG Normal 0 Age >65 2 Risk Factors >3 or Hx ASHD 2 Troponin 1-2 x's Normal limit 1 Total 6 I personally scribed for DANISHA NUR MD ([email or web address]) on 06/21/25 at 18:57. Electronically submitted by Mega Bryant ([email or web address]). I personally scribed for DANISHA NUR MD ([email or web address]) on 06/21/25 at 21:06. Electronically submitted by Mega Bryant ([email or web address]). DANISHA NUR MD Jun 21, 2025 18:57
[2025-06-21] MEDS: ACETAMINOPHEN 500 MG TAB or CAP PO ONE (19:12)
[2025-06-21] MEDS: FUROSEMIDE 40 MG/4 ML VIAL IV ONE (19:12)
[2025-06-21 19:14] LABS: Sodium 145 mmol/L (136-145)
[2025-06-21 19:15] LABS: Anion Gap 11 (5-15); Calcium 9.0 mg/dL (8.7-10.4)
[2025-06-21 19:20] LABS: BUN/Creatinine Ratio 10.1 (10.0-20.0); Glucose 97 mg/dL (74-106); Hematocrit 38.4 % (36.0-46.0); Hemoglobin 12.3 g/dL (12.2-16.2); Mean Corpuscular Hemoglobin 31.8 pg (28.0-32.0); Mean Corpuscular Volume 99.2 fL (80.0-100.0); Nucleated Red Blood Cells % 0.1 %
--- NOTE | 2025-06-21 19:22 | DVH ---
CLINICAL HISTORY: cp TECHNIQUE: Single view of the chest was obtained. COMPARISON: XY CHEST PORTABLE on DOS: 12/29/24, XY CHEST TWO VIEWS ROUTINE on DOS: 06/29/24 FINDINGS: A tunneled right dialysis catheter terminates in the cavoatrial junction. There are midline sternotom y wires and a left atrial closure device. The heart size is mildly enlarged with pulmonary vascular congestion. There is no dense consolidation . IMPRESSION: Pulmonary vascular congestion.
[2025-06-21 19:32] LABS: Blood Urea Nitrogen 44 mg/dL (9-23); Carbon Dioxide 18 mmol/L (20-31); Chloride 116 mmol/L (98-107)
[2025-06-21 19:40] LABS: Potassium 6.2 mmol/L (3.5-5.1)
[2025-06-21] MEDS ORDERED: DEXTROSE (50%) 50ML SYRG IV PRN ×3 (19:45→23:30)
[2025-06-21] MEDS: ALBUTEROL SULF 2.5 MG/0.5ML(0.5%) NEB SOLN NEB ONE (20:22)
[2025-06-21 20:23] VITALS: PULSE 76; RESP 21; O2SAT 99
[2025-06-21] MEDS: ACCU-CHEK COMFORT CURVE STRIP VI STA (20:25)
[2025-06-21] MEDS: DEXTROSE (50%) 50ML SYRG IV ONE (20:46)
[2025-06-21] MEDS: CALCIUM GLUC 1,000mg/50ml-NS 50 ML IV ONE (20:46)
[2025-06-21] MEDS: SODIUM BICARB 8.4% 50Meq/50ml SYR INJ IV ONE (20:46)
[2025-06-21] MEDS: InsuLIN REG 1unit/0.01ml Soln (100units/ml) IV ONE (20:47)
[2025-06-21] MEDS: LABETALOL HCL 20 MG/4 ML VL IV ONE (21:21)
[2025-06-21 21:29] LABS: COVID19 ANTIGEN SOFIA FIA NEGATIVE (NEGATIVE)
[2025-06-21 22:51] LABS: Anion Gap 14 (5-15); Calcium 9.2 mg/dL (8.7-10.4)
[2025-06-21 22:54] LABS: Carbon Dioxide 16 mmol/L (20-31); Chloride 116 mmol/L (98-107); Potassium 5.5 mmol/L (3.5-5.1); Sodium 146 mmol/L (136-145)
[2025-06-21 22:56] LABS: BUN/Creatinine Ratio 13.1 (10.0-20.0)
[2025-06-21 22:59] LABS: Blood Urea Nitrogen 56 mg/dL (9-23); Glucose 179 mg/dL (74-106)
[2025-06-21 23:54] VITALS: BP 180/76; PULSE 86; RESP 18; O2SAT 100
[2025-06-22] VITALS (10 sets, daily range): BP systolic 154; BP diastolic 69; PULSE 70–100; RESP 14–21; TEMP 99.1; O2SAT 96–100
[2025-06-22] MEDS: ACCU-CHEK COMFORT CURVE STRIP VI SCH
[2025-06-22] MEDS: InsuLIN REG 1unit/0.01ml Soln (100units/ml) SC SCH
[2025-06-22] MEDS: NITROGLYCERIN 50MG/250ML 250 ML IV SCH (01:12)
[2025-06-22 01:15] LABS: Base Excess -8.6 mmol/L (-2.0-3.0)
--- NOTE | 2025-06-22 01:42 | DVHHP2 ---
Admitting Diagnosis: Metabolic acidosis, hyperkalemia, HTN urgency, pulmonary edema due to noncompliance with medical therapy and hemodialysis treatment History of Present Illness HPI 64 y.o. female with ESRD on HD, CAD, HTN, COPD on home O2, HTN, obesity, h/o [place] and CABG arrived to the ER c/o worsening SOB. Unfortunately, patient is non- compliant with the recommended treatment plan. Patient has not attended her HD sessions for the past 2 weeks. Patient is still a smoker. In the ER her BP was elevated and resistant to Labetalol, Lasix and Clonidine. Nitro drip was ordered. Additionally, her troponin was mildly elevated and progressively increasing in 2 consecutive draws. Home Meds Active Scripts Nifedipine (Nifedipine Er) 30 Mg Tab, 60 MG PO Q12H for 60 Days, #240 TAB 1 Refill Prov:RADHA STEVENS DO 12/30/24 Albuterol Sulfate (Albuterol Sulfate) 0.083 % Neb, 1 VIAL NEB Q4HPRN, #50 VIAL Prov:BOLIVAR العلي MD 07/03/24 Labetalol HCl (Labetalol HCl) 200 Mg Tab, 200 MG PO BID for 30 Days, #60 TAB 2 Refills Prov:BOLIVAR العلي MD 07/03/24 Clonidine Hydrochloride (Clonidine Hcl) 0.1 Mg Tab, 0.1 MG PO TID for 30 Days, #90 TAB 1 Refill Prov:BOLIVAR العلي MD 07/03/24 Aspirin (Aspir-Low) 81 Mg Tab, 81 MG PO DAILY, #30 TAB Prov:BOLIVAR العلي MD 07/02/24 Atorvastatin Calcium (ATORVASTATIN CALCIUM) 40 Mg Tab, 40 MG PO DAILY for 30 Days, #30 TAB 1 Refill Prov:RADHA STEVENS DO 01/27/24 Pantoprazole Sodium Sesquihydr (Pantoprazole Sodium) 40 Mg Tab, 40 MG PO BID, #120 TAB Prov:ZECHARIAH RODAS MD 01/09/17 Fluticasone Propionate (FLOVENT HFA 110Mcg INH) 110 Mcg Ih, 2 PUFF INH BID, #1 INHALER 0 Refills Prov:ZECHARIAH RODAS MD 04/22/15 Reported Medications Carvedilol (Carvedilol) 12.5 Mg Tab, 1 TAB PO BID 12/30/24 Ctuzpbdpyn-Juhgdvyfwgaanb-Poyb (Breztri Aerosphere 160-9-4.8 Mcg/Act) 1 Aer Aer, INH 12/30/24 Tizanidine Hydrochloride (Tizanidine Hcl) 2 Mg Tab, 1 TAB PO Q12HR for 30 Days, #60 06/30/24 Hydrocodone-Acetaminophen (Hydrocodone Bitartrate/AC 10-325 mg) 1 Tab Tab, 1 TAB PO TID for 30 Days, #90 06/30/24 Fluticasone Furoate (Inhalatio (Arnuity Ellipta) 100 Mcg/Act Inh, 1 PUFF IN DAILY for 90 Days, #90 01/25/24 Escitalopram Oxalate (ESCITALOPRAM OXALATE) 20 Mg Tab, 20 MG PO DAILY, TAB 01/25/24 Trazodone Hcl (Trazodone Hcl) 50 Mg Tab, 50 MG PO HS, MG 01/25/24 Semaglutide (Ozempic) 2 Mg/3 Ml Inj, 0.5 MG SC QWEEKLY 01/25/24 Past Medical History Cardiac: CAD, CHF, HTN, FL, Hyperlipidemia Pulmonary: COPD Patient Family History: Cerebrovascular accident (CVA) GRANDMOM GRANDFATHER FHx: breast cancer GRANDMOM Family history: Diabetes mellitus G8 MOTHER Family history: Hypertension G8 MOTHER Review of Systems Pulmonary/Respiratory: Dyspnea H&P Exam Vital Signs Vital Signs Date Time Temp Pulse Resp B/P (MAP) Pulse Ox O2 Delivery O2 Flow Rate FiO2 06/22/25 01:12 167/77 06/22/25 00:33 76 20 98 06/21/25 23:54 3.0 06/21/25 20:28 Nasal Cannula* 40 06/21/25 20:15 97.9 97.9 General Appeara: Obese Head Exam: Normal inspection Neck Exam: Normal inspection Eye Exam: bilateral eye PERRL, bilateral eye EOMI Pulmonary/Respiratory: Crackles Cardiovascular/Chest: Tachycardia Abdominal Exam: Soft Neuro/Mental St: Alert, Oriented SEPSIS Sepsis Screen Date sepsis recognized/suspect: Jun 21, 2025 Time Sepsis recognized/suspect: 2014 Recent Procedure: No On Antibiotic Therapy: No Respiratory Rate >20: Yes Heart Rate >90: No Temp<36 C (96.8 F) or >38.3 C: No SBP <90 or MAP <65 mmHG: No New Acute Mental Status Change: No Is the patient on CPAP, BIPAP,: No Physician Orders Chest Xray 1 View (06/21/25 18:48) Vital Signs Q1HR (06/21/25 18:48) Saline Lock (06/21/25 18:48) Client Evaluator (06/21/25 ) Dextrose 50% Syringe (06/21/25 19:45) Dextrose 50% Syringe (06/21/25 19:45) Admit (06/21/25 23:08) Complete Blood Count (06/22/25 06:00) Comprehensive Metabolic Panel (06/22/25 06:00) Nitroglycerin Sublingual (Ntrostat Subli (06/21/25 23:15) Morphine Sulfate Injection (06/21/25 23:15) Stat Ekg For Chest Pain (06/21/25 23:08) Notify Md Of Changes From Base (06/21/25 23:08) General Road Supervisor For 24 Hours (06/21/25 23:08) Emergency Dysrhythmia Protocol (06/21/25 23:08) Rhythm Strips Once Every Shift (06/21/25 23:08) Oxygen By Nasal Cannula (06/21/25 23:08) *[facility] (06/21/25 23:08) Npo Except For Medications (06/21/25 23:08) Npo (Nothing By Mouth) Diet (06/21/25 Breakfast) Albuterol Medneb (Ventolin Medneb) (06/22/25 00:00) Ipratropium Medneb (Atrovent Medneb) (06/22/25 00:00) * Cardiology Consult (06/21/25 23:20) Glucose Blood (Accu-Chek Comfort Curve T (06/22/25 00:00) Insulin R (Human) (Insulin R) (06/22/25 00:00) Dextrose 50% Syringe (06/21/25 23:30) Nitroglycerin 50mg/250ml (Tridil) (06/22/25 01:00) Abg W/ Co-Ox (06/22/25 01:13) Vital Signs Date Time Temp Pulse Resp B/P (MAP) Pulse Ox O2 Delivery O2 Flow Rate FiO2 06/22/25 01:12 167/77 06/22/25 00:33 76 20 98 06/22/25 00:33 81 20 99 06/21/25 23:54 86 18 180/76 100 3.0 06/21/25 23:54 209/89 06/21/25 23:50 209/89 (129) 06/21/25 23:00 91 17 181/83 (115) 100 06/21/25 22:22 86 17 180/76 (110) 100 06/21/25 22:21 87 182/74 06/21/25 22:11 86 14 207/73 (117) 100 06/21/25 21:21 123 249/106 06/21/25 21:05 126 06/21/25 21:00 278/128 (178) 06/21/25 20:45 219/89 (132) 06/21/25 20:30 230/113 (152) 06/21/25 20:28 18 100 Nasal Cannula* 5 40 06/21/25 20:23 76 21 99 Nasal Cannula* 5 40 06/21/25 20:15 97.9 76 21 194/52 (99) 99 97.9 06/21/25 19:12 225/76 06/21/25 18:57 93 06/21/25 18:00 84 22 99 Nasal Cannula* 5 40 06/21/25 18:00 99.0 87 22 236/98 (144) 97 99.0 06/21/25 17:52 97.6 100 20 220/147 98 97.6 06/21/25 17:49 93 Laboratory Tests Test 06/21/25 18:59 White Blood Count 8.2 10^3/uL (4.4-10.8) Medications Medications Dose Ordered Sig/Taina Route Start Time Stop Time Status Last Admin Dose Admin Acetaminophen 1,000 mg ONCE ONCE PO 06/21/25 19:00 06/21/25 19:01 DC 06/21/25 19:12 1,000 MG Albuterol 20 mg ONCE ONCE NEB 06/21/25 19:45 06/21/25 20:08 DC 06/21/25 20:22 20 MG Calcium Gluconate/ Sodium Chloride 50 ml @ 120 mls/hr ONCE ONCE IV 06/21/25 19:45 06/21/25 20:09 DC 06/21/25 20:46 120 MLS/HR Clonidine HCl 0.1 mg ONCE ONCE PO 06/21/25 23:15 06/21/25 23:23 DC 06/21/25 23:54 0.1 MG Dextrose 50 ml ONCE ONCE IV 06/21/25 19:45 06/21/25 20:08 DC 06/21/25 20:46 50 ML Diagnostic Test (Pha) 1 strip ONCE STAT 06/21/25 19:44 06/21/25 20:08 DC 06/21/25 20:25 1 STRIP Diagnostic Test (Pha) 1 strip Q6HR 06/22/25 00:00 06/22/25 00:00 1 STRIP Furosemide 80 mg ONCE ONCE IV 06/21/25 19:00 06/21/25 19:01 DC 06/21/25 19:12 80 MG Insulin Human Regular 10 units ONCE ONCE IV 06/21/25 19:45 06/21/25 20:08 DC 06/21/25 20:47 10 UNITS Labetalol HCl 10 mg ONCE ONCE IV 06/21/25 21:00 06/21/25 21:01 DC 06/21/25 21:21 10 MG Nitroglycerin 250 ml @ 1.5 mls/hr Q24H IV 06/22/25 01:00 06/22/25 01:12 1.5 MLS/HR Oxycodone HCl 10 mg ONCE ONCE PO 06/21/25 21:00 06/21/25 21:01 DC 06/21/25 21:28 10 MG Sodium Bicarbonate 50 ml ONCE ONCE IV 06/21/25 19:45 06/21/25 20:08 DC 06/21/25 20:46 50 ML Tramadol HCl 50 mg ONCE ONCE PO 06/21/25 19:00 06/21/25 19:01 DC 06/21/25 19:13 50 MG Labs/Xrays Labs Test 06/22/25 00:39 06/21/25 23:59 06/21/25 21:39 06/21/25 20:30 Range/Units Blood Gas Specimen Type Arterial Blood Gas Sample Site Right radial Blood Gas Patient Temperature 37.0 Arterial Blood Date Drawn [id number] Arterial Blood pH 7.259 L 7.350-7.450 Arterial Blood Partial Pressure CO2 41.0 32.0-45.0 mmHg Arterial Blood Partial Pressure O2 163.1 H 83.0-108.0 mmHg Arterial Blood HCO3 17.9 L 21.0-28.0 mmol/L Arterial Blood Oxygen Saturation 98.8 H 94.0-98.0 % Arterial Blood Base Excess -8.6 L -2.0-3.0 mmol/L Arterial Blood Oxyhemoglobin 98.0 94.0-98.0 % Arterial Blood Carboxyhemoglobin 0.3 L 0.5-1.5 % Arterial Blood Methemoglobin 0.5 0.0-1.5 % Wenceslao Test Yes Blood Gas Total Hemoglobin 12.00 12.0-16.0 g/dL Blood Gas Liter Flow 3.00 Blood Gas Modality Nasal cannula Blood Gas Spontaneous Rate 20 FiO2 % 32.0 POC Glucose 93 70-106 mg/dl Sodium Level 146 H 136-145 mmol/L Potassium Level 5.5 H 3.5-5.1 mmol/L Chloride Level 116 H 98-107 mmol/L Carbon Dioxide Level 16 L 20-31 mmol/L Anion Gap 14 5-15 Blood Urea Nitrogen 56 #H 9-23 mg/dL Creatinine 4.27 H 0.550-1.02 mg/dL Glomerular Filtration Rate Calc 11 >90 mL/min BUN/Creatinine Ratio 13.1 10.0-20.0 Serum Glucose 179 H 74-106 mg/dL Calcium Level 9.2 8.7-10.4 mg/dL Troponin I High Sensitivity 52 *H </=34 ng/L Influenza Type A Antigen Negative Negative Influenza Type B Antigen Negative Negative SARS-CoV-2 Antigen (Rapid) Negative NEGATIVE Test 06/21/25 18:59 Range/Units White Blood Count 8.2 4.4-10.8 10^3/uL Red Blood Count 3.88 L 4.0-5.20 10^6/uL Hemoglobin 12.3 12.2-16.2 g/dL Hematocrit 38.4 36.0-46.0 % Mean Corpuscular Volume 99.2 80.0-100.0 fL Mean Corpuscular Hemoglobin 31.8 28.0-32.0 pg Mean Corpuscular Hemoglobin Concent 32.0 32.0-36.0 g/dL Red Cell Distribution Width 14.5 H 11.8-14.3 % Platelet Count 248 140-450 10^3/uL Mean Platelet Volume 9.1 6.9-10.8 fL Neutrophils (%) (Auto) 77.8 37.0-80.0 % Lymphocytes (%) (Auto) 14.6 10.0-50.0 % Monocytes (%) (Auto) 4.8 0.0-12.0 % Eosinophils (%) (Auto) 2.2 0.0-7.0 % Basophils (%) (Auto) 0.6 0.0-2.0 % Neutrophils # (Auto) 6.4 1.6-8.6 10 ^3/uL Lymphocytes # (Auto) 1.2 0.4-5.4 10 ^3/uL Monocytes # (Auto) 0.4 0-1.3 10 ^3/uL Eosinophils # (Auto) 0.2 0-0.8 10 ^3/uL Basophils # (Auto) 0 0-0.2 10 ^3/uL Nucleated Red Blood Cells 0.1 % B-Type Natriuretic Peptide 920.46 0-100 pg/mL Assessment/Plan Problem List: (1) Metabolic acidemia (2) Hypertensive urgency (3) End stage renal disease on dialysis (4) Elevated troponin (5) Pulmonary edema (6) Hyperkalemia (7) Missed dialysis Plan Continue Nitro Danna max, RT, cardiology and nephrology consults Plan discussed with: Patient ANABELLE ALEMAN MD Jun 22, 2025 01:42
[2025-06-22 04:15] LABS: Alanine Aminotransferase 28 U/L (7-40); Albumin 4.1 g/dL (3.2-4.8); Anion Gap 12 (5-15); BUN/Creatinine Ratio 11.7 (10.0-20.0); Calcium 8.9 mg/dL (8.7-10.4); Glucose 100 mg/dL (74-106); Sodium 143 mmol/L (136-145); Total Protein 6.7 g/dL (5.7-8.2)
[2025-06-22 04:16] LABS: Alkaline Phosphatase 160 U/L (46-116); Bilirubin, Total 0.2 mg/dL (0.2-1.0); Blood Urea Nitrogen 49 mg/dL (9-23); Carbon Dioxide 18 mmol/L (20-31); Chloride 113 mmol/L (98-107)
[2025-06-22 04:17] LABS: Potassium 5.8 mmol/L (3.5-5.1)
[2025-06-22 04:30] LABS: Hematocrit 32.6 % (36.0-46.0); Hemoglobin 10.6 g/dL (12.2-16.2); Mean Corpuscular Hemoglobin 31.4 pg (28.0-32.0); Mean Corpuscular Volume 96.5 fL (80.0-100.0); Nucleated Red Blood Cells % 0.1 %
[2025-06-22] MEDS: FUROSEMIDE 40 MG/4 ML VIAL IV SCH (05:29)
[2025-06-22] MEDS: IPRATROPIUM BROM 0.5 MG/2.5ML INH SOL NEB SCH (06:58)
[2025-06-22] MEDS: ALBUTEROL SULF 2.5 MG/0.5ML(0.5%) NEB SOLN NEB SCH (06:58)
--- NOTE | 2025-06-22 11:57 | DVHCONRES ---
Date Seen: Jun 22, 2025 Resident Creating Document: IZABELLA STARR RESDIENT History of Present Illness This is a 64 yr old female with ESRD on HD, CAD, HTN, COPD on home O2, HTN, obesity, h/o [place] and CABG arrived to the ER c/o worsening SOB. Unfortunately, patient is non-compliant with the recommended treatment plan. Patient has not attended her HD sessions for the past 2 weeks. Patient is still a smoker. In the ER her BP was elevated and resistant to Labetalol, Lasix and Clonidine. Family History: Cerebrovascular accident (CVA) GRANDMOM GRANDFATHER FHx: breast cancer GRANDMOM Family history: Diabetes mellitus G8 MOTHER Family history: Hypertension G8 MOTHER Allergies: Coded Allergies: Diphenhydramine (Verified Allergy, Unknown, 08/01/14) Home Meds Active Scripts Nifedipine (Nifedipine Er) 30 Mg Tab, 60 MG PO Q12H for 60 Days, #240 TAB 1 Refill Prov:RADHA STEVENS DO 12/30/24 Albuterol Sulfate (Albuterol Sulfate) 0.083 % Neb, 1 VIAL NEB Q4HPRN, #50 VIAL Prov:BOLIVAR العلي MD 07/03/24 Labetalol HCl (Labetalol HCl) 200 Mg Tab, 200 MG PO BID for 30 Days, #60 TAB 2 Refills Prov:BOLIVAR العلي MD 07/03/24 Clonidine Hydrochloride (Clonidine Hcl) 0.1 Mg Tab, 0.1 MG PO TID for 30 Days, #90 TAB 1 Refill Prov:BOLIVAR العلي MD 07/03/24 Aspirin (Aspir-Low) 81 Mg Tab, 81 MG PO DAILY, #30 TAB Prov:BOLIVAR العلي MD 07/02/24 Atorvastatin Calcium (ATORVASTATIN CALCIUM) 40 Mg Tab, 40 MG PO DAILY for 30 Days, #30 TAB 1 Refill Prov:RADHA STEVENS DO 01/27/24 Pantoprazole Sodium Sesquihydr (Pantoprazole Sodium) 40 Mg Tab, 40 MG PO BID, #120 TAB Prov:ZECHARIAH RODAS MD 01/09/17 Fluticasone Propionate (FLOVENT HFA 110Mcg INH) 110 Mcg Ih, 2 PUFF INH BID, #1 INHALER 0 Refills Prov:ZECHARIAH RODAS MD 04/22/15 Reported Medications Carvedilol (Carvedilol) 12.5 Mg Tab, 1 TAB PO BID 12/30/24 Gbpscejeax-Kcteuyaqnxhyfn-Eiqc (Breztri Aerosphere 160-9-4.8 Mcg/Act) 1 Aer Aer, INH 12/30/24 Tizanidine Hydrochloride (Tizanidine Hcl) 2 Mg Tab, 1 TAB PO Q12HR for 30 Days, #60 06/30/24 Hydrocodone-Acetaminophen (Hydrocodone Bitartrate/AC 10-325 mg) 1 Tab Tab, 1 TAB PO TID for 30 Days, #90 06/30/24 Fluticasone Furoate (Inhalatio (Arnuity Ellipta) 100 Mcg/Act Inh, 1 PUFF IN DAILY for 90 Days, #90 01/25/24 Escitalopram Oxalate (ESCITALOPRAM OXALATE) 20 Mg Tab, 20 MG PO DAILY, TAB 01/25/24 Trazodone Hcl (Trazodone Hcl) 50 Mg Tab, 50 MG PO HS, MG 01/25/24 Semaglutide (Ozempic) 2 Mg/3 Ml Inj, 0.5 MG SC QWEEKLY 01/25/24 Current Medications Current Medications Medications (Trade) Dose Ordered Sig/Taina Route PRN Reason Start Time Stop Time Status Last Admin Dextrose 50 ml PRN PRN IV Blood Sugar LESS THAN 60 06/21/25 19:45 Dextrose 50 ml PRN PRN IV Blood Sugar LESS THAN 60 06/21/25 19:45 Diagnostic Test (Pha) (Accu-Chek Comfort Curve T) 1 strip ONCE STAT 06/21/25 19:44 06/21/25 20:08 DC 06/21/25 20:25 Nitroglycerin (Ntrostat Sublingual) 0.4 mg Q5MINP PRN SL FOR CHEST PAIN 06/21/25 23:15 Morphine Sulfate 2 mg Q30M PRN IV FOR CHEST PAIN 06/21/25 23:15 Albuterol (Ventolin Medneb) 2.5 mg Q6HR NEB 06/22/25 00:00 06/22/25 06:58 Ipratropium [place] (Atrovent Medneb) 0.5 mg Q6HP NEB 06/22/25 00:00 06/22/25 06:58 Diagnostic Test (Pha) (Accu-Chek Comfort Curve T) 1 strip Q6HR 06/22/25 00:00 06/22/25 01:26 DC 06/22/25 00:00 Insulin Human Regular (InsuLIN R) Q6HR SC 06/22/25 00:00 06/22/25 01:26 DC Dextrose 50 ml UD PRN IV Blood Sugar LESS THAN 60 06/21/25 23:30 06/22/25 01:26 DC Nitroglycerin 250 ml @ 1.5 mls/hr Q24H IV 06/22/25 01:00 06/22/25 09:39 Furosemide (Lasix Injection) 40 mg TID IV 06/22/25 06:00 06/22/25 05:29 Review of Systems Patient seen and examined at the bedside. Patient is complaining of shortness of bed and feeling sad. Vital Signs Vital Signs Date Time Temp Pulse Resp B/P (MAP) Pulse Ox O2 Delivery O2 Flow Rate FiO2 06/22/25 10:45 67 20 186/84 (118) 97 06/22/25 09:15 97.3 97.3 06/22/25 06:58 Nasal Cannula* 3 32 Physical Exam General Appearance: Alert, Oriented X3, Cooperative, in mild respiratory distress HEENT: Atraumatic, PERRLA, EOMI, Mucous membrane moist/pink Respiratory: Bilateral crackles Cardiovascular: Regular rate, Normal S1, Normal S2, No murmurs, no chest wall tenderness Abdominal: Normal bowel sounds, Soft, No tenderness, No hepatospenomegaly, No masses Extremities: Bilateral grade 1 pedal edema Skin: No rashes, No breakdown, No significant lesion Neuro: Normal gait, Normal speech, Strength at 5/5 X4 ext, Normal tone, Sensation intact, Cranial nerves 3-12 NL, Reflexes 2+ Psych/Mental Status: Mental status NL, Mood NL Labs/Diagnostic Data Labs Test 06/22/25 11:30 06/22/25 11:12 06/22/25 03:38 06/22/25 00:39 Range/Units Parathyroid Hormone (Intact) 753.7 H 18.4-80.1 pg/mL White Blood Count 9.1 4.4-10.8 10^3/uL Red Blood Count 3.38 L 4.0-5.20 10^6/uL Hemoglobin 10.6 L 12.2-16.2 g/dL Hematocrit 32.6 #L 36.0-46.0 % Mean Corpuscular Volume 96.5 80.0-100.0 fL Mean Corpuscular Hemoglobin 31.4 28.0-32.0 pg Mean Corpuscular Hemoglobin Concent 32.6 32.0-36.0 g/dL Red Cell Distribution Width 14.2 11.8-14.3 % Platelet Count 205 140-450 10^3/uL Mean Platelet Volume 9.6 6.9-10.8 fL Neutrophils (%) (Auto) 65.8 37.0-80.0 % Lymphocytes (%) (Auto) 23.1 10.0-50.0 % Monocytes (%) (Auto) 7.9 0.0-12.0 % Eosinophils (%) (Auto) 2.2 0.0-7.0 % Basophils (%) (Auto) 1.0 0.0-2.0 % Neutrophils # (Auto) 6.0 1.6-8.6 10 ^3/uL Lymphocytes # (Auto) 2.1 0.4-5.4 10 ^3/uL Monocytes # (Auto) 0.7 0-1.3 10 ^3/uL Eosinophils # (Auto) 0.2 0-0.8 10 ^3/uL Basophils # (Auto) 0.1 0-0.2 10 ^3/uL Nucleated Red Blood Cells 0.1 % Sodium Level 143 136-145 mmol/L Potassium Level 5.8 *H 3.5-5.1 mmol/L Chloride Level 113 H 98-107 mmol/L Carbon Dioxide Level 18 L 20-31 mmol/L Anion Gap 12 5-15 Blood Urea Nitrogen 49 H 9-23 mg/dL Creatinine 4.20 H 0.550-1.02 mg/dL Glomerular Filtration Rate Calc 11 >90 mL/min BUN/Creatinine Ratio 11.7 10.0-20.0 Serum Glucose 100 74-106 mg/dL Calcium Level 8.9 8.7-10.4 mg/dL Total Bilirubin 0.2 0.2-1.0 mg/dL Aspartate Amino Transferase (AST) 15 13-40 U/L Alanine Aminotransferase (ALT) 28 7-40 U/L Alkaline Phosphatase 160 H 46-116 U/L Total Protein 6.7 5.7-8.2 g/dL Albumin 4.1 3.2-4.8 g/dL Blood Gas Specimen Type Arterial Blood Gas Sample Site Right radial Blood Gas Patient Temperature 37.0 Arterial Blood Date Drawn [id number] Arterial Blood pH 7.259 L 7.350-7.450 Arterial Blood Partial Pressure CO2 41.0 32.0-45.0 mmHg Arterial Blood Partial Pressure O2 163.1 H 83.0-108.0 mmHg Arterial Blood HCO3 17.9 L 21.0-28.0 mmol/L Arterial Blood Oxygen Saturation 98.8 H 94.0-98.0 % Arterial Blood Base Excess -8.6 L -2.0-3.0 mmol/L Arterial Blood Oxyhemoglobin 98.0 94.0-98.0 % Arterial Blood Carboxyhemoglobin 0.3 L 0.5-1.5 % Arterial Blood Methemoglobin 0.5 0.0-1.5 % Wenceslao Test Yes Blood Gas Total Hemoglobin 12.00 12.0-16.0 g/dL Blood Gas Liter Flow 3.00 Blood Gas Modality Nasal cannula Blood Gas Spontaneous Rate 20 FiO2 % 32.0 Test 06/21/25 23:59 06/21/25 21:39 06/21/25 20:30 06/21/25 18:59 Range/Units POC Glucose 93 70-106 mg/dl Troponin I High Sensitivity 52 *H </=34 ng/L Influenza Type A Antigen Negative Negative Influenza Type B Antigen Negative Negative SARS-CoV-2 Antigen (Rapid) Negative NEGATIVE B-Type Natriuretic Peptide 920.46 0-100 pg/mL Assessment This is a 64 yr old female with ESRD on HD (Saturday//Saturday), CAD (status post CABG), HTN, COPD on home O2, HTN, obesity, came to hospitalist worsening of shortness of breaths. Patient missed her Schedule dialysis for the last 2 weeks. Assessment: ESRD on HD (Saturday//Saturday), missed HD for last 2 weeks Hyperkalemia Acute on chronic diastolic heart failure Hx of CAD (S/P CABG) Hypertension COPD, on home O2 Medical noncompliance Plan/Recommendation: * Continue with UF to 3 L as tolerated * Resume home meds, sevelamer,labetalol and nifedipine * check, phosphorus, PTH, iron panel * Strict I&Os * Renal diet * Social self with evaluation * We follow up with the patient Patient seen and examined by myself in rounds today with the medicine resident. I agree with the assessment and plan Patient seen on hemodialysis, blood pressure stable Thank you for giving us the opportunity to take care of your patitnem, please call back if you have any questions/concerns. Plan discussed with: Patient, Other (RN) IZABELLA STARR Jun 22, 2025 11:57 MANISHA SAUNDERS MD Jun 23, 2025 09:12
[2025-06-22 12:05] LABS: Iron 75.0 ug/dL (50-170)
[2025-06-22 12:23] LABS: Total Iron Binding Capacity 212.0 ug/dL (250-425)
[2025-06-22] MEDS: MORPHINE SULFATE INJ 2 MG/ml SYRG IV PRN (13:06)
[2025-06-22] MEDS: SEVELAMER 800 MG TAB PO ONE (13:18)
[2025-06-22] MEDS: SODIUM ZIRCONIUM CYCL 10 GM PAK PO ONE (13:18)
[2025-06-22] MEDS: NITROGLYCERIN 0.4 MG SL TAB SL PRN (13:18)
[2025-06-22] MEDS: CARVEDILOL 12.5 MG TAB PO ONE (13:24)
[2025-06-22] MEDS: LABETALOL HCL 200 MG TAB PO ONE ×2 (13:25→20:28)
[2025-06-22] MEDS: CALCIUM GLUC 1,000mg/50ml-NS 50 ML IV ONE (13:25)
--- NOTE | 2025-06-22 14:22 | DVHINCON2 ---
Date Seen: Jun 22, 2025 Referring Physician MD Victor M Reason for Consultation Elevated troponin History of Present Illness This is a 64-year-old female who presented to the emergency room via EMS with a chief complaint of shortness of breath for 30 minutes prior to arrival. The patient reports a sudden onset of shortness of breath associated with diaphoresis and generalized weakness prompting her neighbor to call 911. She admits to missing hemodialysis treatments for two weeks. Upon EMS arrival she underwent a blood glucose level of 106 mg/dL and was administered a breathing treatment with some improvement. Upon arrival to the emergency room she underwent multiple 12 lead electrocardiograms x2 revealing a sinus tachycardia rhythm up to 126 bpm with diffuse T-wave inversion. She is currently on a nitroglycerin drip for blood pressure control. Denies chest pain, palpitations, or syncopal events. Latest troponin level was found at 52 ng/L. Follows up in the outpatient setting with Dr. Lord who will be scheduling the patient for an outpatient SPIKE for unspecified valve function. Significant medical history includes coronary artery disease status post triple vessel bypass in [place] in 2022 (on ASA/Stating), congestive heart failure, hypertension, dyslipidemia, COPD with O2 dependance at 3.5 LPM, end-stage renal disease on hemodialysis, and current tobacco use. Past Medical History Past medical history reviewed. No other significant than mentioned above. Past Surgical History Triple-vessel CABG, 2022 Hemodialysis access Breast reduction Appendectomy Cholecystectomy Family History: Cerebrovascular accident (CVA) GRANDMOM GRANDFATHER FHx: breast cancer GRANDMOM Family history: Diabetes mellitus G8 MOTHER Family history: Hypertension G8 MOTHER Family History Family history reviewed. Social History Denies the use of illicit drugs and alcohol. Admits to tobacco use. Allergies: Coded Allergies: Diphenhydramine (Verified Allergy, Unknown, 08/01/14) Home Meds Active Scripts Nifedipine (Nifedipine Er) 30 Mg Tab, 60 MG PO Q12H for 60 Days, #240 TAB 1 Refill Prov:RADHA STEVENS DO 12/30/24 Albuterol Sulfate (Albuterol Sulfate) 0.083 % Neb, 1 VIAL NEB Q4HPRN, #50 VIAL Prov:BOLIVAR العلي MD 07/03/24 Labetalol HCl (Labetalol HCl) 200 Mg Tab, 200 MG PO BID for 30 Days, #60 TAB 2 Refills Prov:BOLIVAR العلي MD 07/03/24 Clonidine Hydrochloride (Clonidine Hcl) 0.1 Mg Tab, 0.1 MG PO TID for 30 Days, #90 TAB 1 Refill Prov:BOLIVAR العلي MD 07/03/24 Aspirin (Aspir-Low) 81 Mg Tab, 81 MG PO DAILY, #30 TAB Prov:BOLIVAR العلي MD 07/02/24 Atorvastatin Calcium (ATORVASTATIN CALCIUM) 40 Mg Tab, 40 MG PO DAILY for 30 Days, #30 TAB 1 Refill Prov:RADHA STEVENS DO 01/27/24 Pantoprazole Sodium Sesquihydr (Pantoprazole Sodium) 40 Mg Tab, 40 MG PO BID, #120 TAB Prov:ZECHARIAH RODAS MD 01/09/17 Fluticasone Propionate (FLOVENT HFA 110Mcg INH) 110 Mcg Ih, 2 PUFF INH BID, #1 INHALER 0 Refills Prov:ZECHARIAH RODAS MD 04/22/15 Reported Medications Carvedilol (Carvedilol) 12.5 Mg Tab, 1 TAB PO BID 12/30/24 Zmhipndgsc-Ynqjnmxjidvmrc-Erbl (Breztri Aerosphere 160-9-4.8 Mcg/Act) 1 Aer Aer, INH 12/30/24 Tizanidine Hydrochloride (Tizanidine Hcl) 2 Mg Tab, 1 TAB PO Q12HR for 30 Days, #60 06/30/24 Hydrocodone-Acetaminophen (Hydrocodone Bitartrate/AC 10-325 mg) 1 Tab Tab, 1 TAB PO TID for 30 Days, #90 06/30/24 Fluticasone Furoate (Inhalatio (Arnuity Ellipta) 100 Mcg/Act Inh, 1 PUFF IN DAILY for 90 Days, #90 01/25/24 Escitalopram Oxalate (ESCITALOPRAM OXALATE) 20 Mg Tab, 20 MG PO DAILY, TAB 01/25/24 Trazodone Hcl (Trazodone Hcl) 50 Mg Tab, 50 MG PO HS, MG 01/25/24 Semaglutide (Ozempic) 2 Mg/3 Ml Inj, 0.5 MG SC QWEEKLY 01/25/24 Home Meds Home medications reviewed. Current Medications Current Medications Medications (Trade) Dose Ordered Sig/Taina Route PRN Reason Start Time Stop Time Status Last Admin Dextrose 50 ml PRN PRN IV Blood Sugar LESS THAN 60 06/21/25 19:45 Cancel Dextrose 50 ml PRN PRN IV Blood Sugar LESS THAN 60 06/21/25 19:45 Diagnostic Test (Pha) (Accu-Chek Comfort Curve T) 1 strip ONCE STAT 06/21/25 19:44 06/21/25 20:08 DC 06/21/25 20:25 Nitroglycerin (Ntrostat Sublingual) 0.4 mg Q5MINP PRN SL FOR CHEST PAIN 06/21/25 23:15 06/22/25 13:18 Morphine Sulfate 2 mg Q30M PRN IV FOR CHEST PAIN 06/21/25 23:15 06/22/25 13:06 Albuterol (Ventolin Medneb) 2.5 mg Q6HR NEB 06/22/25 00:00 06/22/25 11:43 Ipratropium [place] (Atrovent Medneb) 0.5 mg Q6HP NEB 06/22/25 00:00 06/22/25 11:43 Diagnostic Test (Pha) (Accu-Chek Comfort Curve T) 1 strip Q6HR 06/22/25 00:00 06/22/25 01:26 DC 06/22/25 00:00 Insulin Human Regular (InsuLIN R) Q6HR SC 06/22/25 00:00 06/22/25 01:26 DC Dextrose 50 ml UD PRN IV Blood Sugar LESS THAN 60 06/21/25 23:30 06/22/25 01:26 DC Nitroglycerin 250 ml @ 1.5 mls/hr Q24H IV 06/22/25 01:00 06/22/25 09:39 Furosemide (Lasix Injection) 40 mg TID IV 06/22/25 06:00 06/22/25 12:06 DC 06/22/25 05:29 Carvedilol (Coreg Tablet) 12.5 mg Q12HR PO 06/22/25 22:00 06/22/25 12:06 DC Nifedipine (Procardia Xl (Time-Release)) 30 mg DAILY PO 06/23/25 10:00 Labetalol HCl (Normodyne Tablet) 200 mg Q12HR PO 06/22/25 22:00 Sevelamer HCl (Renagel) 800 mg TIDWM PO 06/22/25 18:00 Review of Systems Constitutional: Diaphoresis, generalized weakness Ears, Nose, & Throat: No symptom reported Eyes: No symptom reported Neurological: No symptoms reported Pulmonary/Respiratory: SOB Cardiovascular: No symptom reported Gastrointestinal: No symptom reported Genitourinary: No symptom reported Musculoskeletal: No symptom reported Skin: No symptom reported Psychiatric: No symptom reported Endocrine: No symptom reported Hemotologic/Lymphatic: No symptom reported Vital Signs Vital Signs Date Time Temp Pulse Resp B/P (MAP) Pulse Ox O2 Delivery O2 Flow Rate FiO2 06/22/25 13:30 78 20 180/65 (103) 97 06/22/25 11:44 Nasal Cannula 2.0 06/22/25 11:44 28 06/22/25 09:15 97.3 97.3 Physical Exam General Appearance: Cooperative. Appears weak and lethargic. Kmvn-xq-pgnswxaw acute respiratory distress Head Exam: Normal inspection Neck Exam: Normal inspection. Normal alignment Pulmonary/Respiratory: Crackles to bilateral breath sounds Cardiovascular/Chest: Regular rate and rhythm. S1, S2. Sinus rhythm. No m urmurs. No JVD. Peripheral Pulses: 2+ Radial (R). 2+ Radial (L). 2+ Pedal (R). 2+ Pedal (L) Abdominal Exam: Normal bowel sounds. Soft. Ankle Exam: Negative ankle edema Lower extremities: Negative lower extremity edema Neuro/Mental Status: A&O x4. Coherent Thoughts/Psych: Normal thought pattern. Appropriate mood and affect. Good judgement and insight Appearance: Mild to moderate acute respiratory distress Skin Exam: Normal inspection. Normal color. Warm. Dry Labs/Diagnostic Data Labs Test 06/22/25 11:30 06/22/25 11:12 06/22/25 03:38 06/22/25 00:39 Range/Units Hemoglobin A1c 4.9 <5.7 % A1C Phosphorus Level 5.7 H 2.4-5.1 mg/dL Iron Level 75 50-170 ug/dL Total Iron Binding Capacity 212 L 250-425 ug/dL Percent Iron Saturation 35.4 15-50 % Ferritin 838.6 H 10-291 ng/mL Vitamin D 25-Hydroxy 21.1 L 30.0-100 ng/mL Hepatitis B Surface Antigen Negative Negative Parathyroid Hormone (Intact) 753.7 H 18.4-80.1 pg/mL White Blood Count 9.1 4.4-10.8 10^3/uL Red Blood Count 3.38 L 4.0-5.20 10^6/uL Hemoglobin 10.6 L 12.2-16.2 g/dL Hematocrit 32.6 #L 36.0-46.0 % Mean Corpuscular Volume 96.5 80.0-100.0 fL Mean Corpuscular Hemoglobin 31.4 28.0-32.0 pg Mean Corpuscular Hemoglobin Concent 32.6 32.0-36.0 g/dL Red Cell Distribution Width 14.2 11.8-14.3 % Platelet Count 205 140-450 10^3/uL Mean Platelet Volume 9.6 6.9-10.8 fL Neutrophils (%) (Auto) 65.8 37.0-80.0 % Lymphocytes (%) (Auto) 23.1 10.0-50.0 % Monocytes (%) (Auto) 7.9 0.0-12.0 % Eosinophils (%) (Auto) 2.2 0.0-7.0 % Basophils (%) (Auto) 1.0 0.0-2.0 % Neutrophils # (Auto) 6.0 1.6-8.6 10 ^3/uL Lymphocytes # (Auto) 2.1 0.4-5.4 10 ^3/uL Monocytes # (Auto) 0.7 0-1.3 10 ^3/uL Eosinophils # (Auto) 0.2 0-0.8 10 ^3/uL Basophils # (Auto) 0.1 0-0.2 10 ^3/uL Nucleated Red Blood Cells 0.1 % Sodium Level 143 136-145 mmol/L Potassium Level 5.8 *H 3.5-5.1 mmol/L Chloride Level 113 H 98-107 mmol/L Carbon Dioxide Level 18 L 20-31 mmol/L Anion Gap 12 5-15 Blood Urea Nitrogen 49 H 9-23 mg/dL Creatinine 4.20 H 0.550-1.02 mg/dL Glomerular Filtration Rate Calc 11 >90 mL/min BUN/Creatinine Ratio 11.7 10.0-20.0 Serum Glucose 100 74-106 mg/dL Calcium Level 8.9 8.7-10.4 mg/dL Total Bilirubin 0.2 0.2-1.0 mg/dL Aspartate Amino Transferase (AST) 15 13-40 U/L Alanine Aminotransferase (ALT) 28 7-40 U/L Alkaline Phosphatase 160 H 46-116 U/L Total Protein 6.7 5.7-8.2 g/dL Albumin 4.1 3.2-4.8 g/dL Blood Gas Specimen Type Arterial Blood Gas Sample Site Right radial Blood Gas Patient Temperature 37.0 Arterial Blood Date Drawn [id number] Arterial Blood pH 7.259 L 7.350-7.450 Arterial Blood Partial Pressure CO2 41.0 32.0-45.0 mmHg Arterial Blood Partial Pressure O2 163.1 H 83.0-108.0 mmHg Arterial Blood HCO3 17.9 L 21.0-28.0 mmol/L Arterial Blood Oxygen Saturation 98.8 H 94.0-98.0 % Arterial Blood Base Excess -8.6 L -2.0-3.0 mmol/L Arterial Blood Oxyhemoglobin 98.0 94.0-98.0 % Arterial Blood Carboxyhemoglobin 0.3 L 0.5-1.5 % Arterial Blood Methemoglobin 0.5 0.0-1.5 % Wenceslao Test Yes Blood Gas Total Hemoglobin 12.00 12.0-16.0 g/dL Blood Gas Liter Flow 3.00 Blood Gas Modality Nasal cannula Blood Gas Spontaneous Rate 20 FiO2 % 32.0 Test 06/21/25 23:59 06/21/25 21:39 06/21/25 20:30 06/21/25 18:59 Range/Units POC Glucose 93 70-106 mg/dl Troponin I High Sensitivity 52 *H </=34 ng/L Influenza Type A Antigen Negative Negative Influenza Type B Antigen Negative Negative SARS-CoV-2 Antigen (Rapid) Negative NEGATIVE B-Type Natriuretic Peptide 920.46 0-100 pg/mL Assessment Hypertensive urgency ESRD on HD with hyperkalemia and missed dialysis x2 weeks Stark-cardiac syndrome Type III NSTEMI, likely type 2 secondary to above Coronary artery disease status post triple-vessel CABG (on ASA/statin) COPD with O2 dependence Dyslipidemia Tobacco use Medical non-compliance Obesity Plan/Recommendation (Dr. Spangler) * Cardiac catheterization (07/02/2024): Multivessel [place] coronary artery disease with SVG to CX widely patent and ORTEGA not engaged. * Transthoracic echocardiogram (07/02/2024): LVEF 55% with severe LVH. Left atrium dilated. Imbpdanx-nz-rurygy aortic/mitral valve regurgitation. * Multiple 12 lead electrocardiograms x2 sinus rhythm with diffuse T-wave inversion. * Serial troponin levels with latest at 52 ng/L. Plan: Repeat a transthoracic echocardiogram to delineate cardiac function. Initiate aggressive oral antihypertensive therapy and titrate off NTG drip as tolerated. Initiate single-antiplatelet therapy and lipid lowering agent given history of CAD. Initiate DVT/VTE prophylaxis. Monitor ECG changes closely and notify. Continue Nephrology recommendations. Further orders per clinical course. Thank you for allowing us to participate in this patient's care. Please call if you have any questions or concerns. Critical care time: 45 minutes. This medical document was created using an electronic medical record system with voice recognition software and computerized dictation system. Although this document has been carefully reviewed, there might still be some phonetic and typographical errors. Occasional wrong-word or ``sound-alike substitutions may have occurred due to the inherent limitations of voice recognition software. These areas are purely typographical due to imperfections of the software programs and do not reflect any compromise in the patient's medical care. Please read the chart carefully and recognize, using context, where these substitutions have occurred. Plan discussed with: Patient NYHA Physical activity limitations: Class3(Marked) ordinary Date of Service: Jun 22, 2025 Billing Provider: DARREN DELGADO Cardiology Common Codes: 51813-[id number] CARE 30-74 MIN DARREN DELGADO Jun 22, 2025 14:22
[2025-06-22] MEDS: SODIUM CHL 0.9% 1000 ML BAG XX ONE (14:30)
--- NOTE | 2025-06-22 17:12 | DVHDS2 ---
Discharge Summary Date of Admission Jun 21, 2025 at 23:08 Date of Discharge: Jun 22, 2025 Admitting Diagnosis Hypertensive urgency, hyperkalemia, dyspnea Wounds: None Labs/Diagnostic Data: Laboratory Results Test 06/22/25 11:30 06/22/25 11:12 06/22/25 03:38 06/22/25 00:39 Hemoglobin A1c 4.9 % A1C (<5.7) Phosphorus Level 5.7 mg/dL (2.4-5.1) Iron Level 75 ug/dL (50-170) Total Iron Binding Capacity 212 ug/dL (250-425) Percent Iron Saturation 35.4 % (15-50) Ferritin 838.6 ng/mL (10-291) Vitamin D 25-Hydroxy 21.1 ng/mL (30.0-100) Hepatitis B Surface Antigen Negative (Negative) Parathyroid Hormone (Intact) 753.7 pg/mL (18.4-80.1) White Blood Count 9.1 10^3/uL (4.4-10.8) Red Blood Count 3.38 10^6/uL (4.0-5.20) Hemoglobin 10.6 g/dL (12.2-16.2) Hematocrit 32.6 % (36.0-46.0) Mean Corpuscular Volume 96.5 fL (80.0-100.0) Mean Corpuscular Hemoglobin 31.4 pg (28.0-32.0) Mean Corpuscular Hemoglobin Concent 32.6 g/dL (32.0-36.0) Red Cell Distribution Width 14.2 % (11.8-14.3) Platelet Count 205 10^3/uL (140-450) Mean Platelet Volume 9.6 fL (6.9-10.8) Neutrophils (%) (Auto) 65.8 % (37.0-80.0) Lymphocytes (%) (Auto) 23.1 % (10.0-50.0) Monocytes (%) (Auto) 7.9 % (0.0-12.0) Eosinophils (%) (Auto) 2.2 % (0.0-7.0) Basophils (%) (Auto) 1.0 % (0.0-2.0) Neutrophils # (Auto) 6.0 10 ^3/uL (1.6-8.6) Lymphocytes # (Auto) 2.1 10 ^3/uL (0.4-5.4) Monocytes # (Auto) 0.7 10 ^3/uL (0-1.3) Eosinophils # (Auto) 0.2 10 ^3/uL (0-0.8) Basophils # (Auto) 0.1 10 ^3/uL (0-0.2) Nucleated Red Blood Cells 0.1 % Sodium Level 143 mmol/L (136-145) Potassium Level 5.8 mmol/L (3.5-5.1) Chloride Level 113 mmol/L (98-107) Carbon Dioxide Level 18 mmol/L (20-31) Anion Gap 12 (5-15) Blood Urea Nitrogen 49 mg/dL (9-23) Creatinine 4.20 mg/dL (0.550-1.02) Glomerular Filtration Rate Calc 11 mL/min (>90) BUN/Creatinine Ratio 11.7 (10.0-20.0) Serum Glucose 100 mg/dL (74-106) Calcium Level 8.9 mg/dL (8.7-10.4) Total Bilirubin 0.2 mg/dL (0.2-1.0) Aspartate Amino Transferase (AST) 15 U/L (13-40) Alanine Aminotransferase (ALT) 28 U/L (7-40) Alkaline Phosphatase 160 U/L (46-116) Total Protein 6.7 g/dL (5.7-8.2) Albumin 4.1 g/dL (3.2-4.8) Blood Gas Specimen Type Arterial Blood Gas Sample Site Right radial Blood Gas Patient Temperature 37.0 Arterial Blood Date Drawn [id number] Arterial Blood pH 7.259 (7.350-7.450) Arterial Blood Partial Pressure CO2 41.0 mmHg (32.0-45.0) Arterial Blood Partial Pressure O2 163.1 mmHg (83.0-108.0) Arterial Blood HCO3 17.9 mmol/L (21.0-28.0) Arterial Blood Oxygen Saturation 98.8 % (94.0-98.0) Arterial Blood Base Excess -8.6 mmol/L (-2.0-3.0) Arterial Blood Oxyhemoglobin 98.0 % (94.0-98.0) Arterial Blood Carboxyhemoglobin 0.3 % (0.5-1.5) Arterial Blood Methemoglobin 0.5 % (0.0-1.5) Wenceslao Test Yes Blood Gas Total Hemoglobin 12.00 g/dL (12.0-16.0) Blood Gas Liter Flow 3.00 Blood Gas Modality Nasal cannula Blood Gas Spontaneous Rate 20 FiO2 % 32.0 Test 06/21/25 23:59 06/21/25 21:39 06/21/25 20:30 06/21/25 18:59 POC Glucose 93 mg/dl (70-106) Troponin I High Sensitivity 52 ng/L (</=34) Influenza Type A Antigen Negative (Negative) Influenza Type B Antigen Negative (Negative) SARS-CoV-2 Antigen (Rapid) Negative (NEGATIVE) B-Type Natriuretic Peptide 920.46 pg/mL (0-100) Other Laboratory Tests 06/22/25 03:38 Brief Hx & Hospital Course: This is a 64 YO Female with multiple medical problems to include Hx of CAD (S/P CABG), resistant hypertension, COPD, Chronic Respiratory failure on home O2, and ESRD on HD who presents secondary to failing to comply with her routine dialysis sessions with dyspnea. Patient has history of medical non compliance and has missed her last 2 weeks of dialysis sessions and claims to skip her Coreg medications at times and presented to ED with pulmonary vascular congestion on chest imaging, hyperkalemia, elevated troponins, and hypertensive urgency. Patient received dialysis with 2 liters extraction. Patient home blood pressure medications was resumed and taken of nitro drip that was initiated in the ER. Patient was also seen by cardiology do to minimally elevated troponins without any ischemic EKG changes or chest pain. Patient elevated troponins likely either demand related ischemia verses accumulation from renal failure. Patient has known history of medication and dialysis non compliance and has been educated about her severity of her medical problems. Patient is stable for discharge and will be arranged from home safety and close PCP follow up. Consults/Reason for consult Dr. Jaciel Spangler, Cardiology Dr. Shepard, Nephrology Operations or Procedures Patient received dialysis. Condition at Discharge: Stable Final Diagnosis/Problems List Hypertensive urgency, hyperkalemia, pulmonary vascular congestion, medical non compliance, demand related ischemia Secondary Diagnosis: Hx of CAD (S/P CABG) Hypertension Chronic Respiratory failure on home O2 Discharge Disposition: Home Discharge Instruct/Medications Diet: Cardiac 2g Na,low cholest, Renal Activity: No Restrictions, As Tolerated Follow Up/Referral: PCP Follow up in the next 3-5 days Please resume all dialysis days on Tuesdays, , and Saturdays Monitor BPs at home and keep a log to present to your provider. Medications: no adjustments to home medications Scheduled Albuterol Sulfate (Albuterol Sulfate), 1 VIAL NEB Q4HPRN Aspirin (Aspir-Low), 81 MG PO DAILY Atorvastatin Calcium (Atorvastatin Calcium), 40 MG PO DAILY Carvedilol (Carvedilol), 1 TAB PO BID, (Reported) Clonidine Hydrochloride (Clonidine Hcl), 0.1 MG PO TID Escitalopram Oxalate (Escitalopram Oxalate), 20 MG PO DAILY, (Reported) Fluticasone Furoate (Inhalatio (Arnuity Ellipta), 1 PUFF IN DAILY, (Reported) Fluticasone Propionate (FLOVENT HFA 110Mcg INH), 2 PUFF INH BID Hydrocodone-Acetaminophen (Hydrocodone Bitartrate/AC 10-325 mg), 1 TAB PO TID, (Reported) Labetalol HCl (Labetalol HCl), 200 MG PO BID Nifedipine (Nifedipine Er), 60 MG PO Q12H Pantoprazole Sodium Sesquihydr (Pantoprazole Sodium), 40 MG PO BID Semaglutide (Ozempic), 0.5 MG SC QWEEKLY, (Reported) Tizanidine Hydrochloride (Tizanidine Hcl), 1 TAB PO Q12HR, (Reported) Trazodone Hcl (Trazodone Hcl), 50 MG PO HS, (Reported) Miscellaneous Medications Wcnsxjeblu-Kcqyesakmvbbwp-Icxy (Breztri Aerosphere 160-9-4.8 Mcg/Act), INH, (Reported) Discharge Statement: "Patient was advised to return to the ER or call 911 if any headaches, dizziness, shortness of breath, chest pain, abdominal pain, bleeding, fevers, or worsening of medical condition. Patient was counseled about treatment plan, medications, possible side effects, patientverbalized understanding. All questions were answered to the best of my ability. This discharge took greater then 30 minutes in planning, reviewing documentation, counseling the patient, and discussing with other team members." ASSESSMENT ASSESSMENT Assessment Hypertensive urgency, medical non compliance, demand related ischemia, JONA SIMPSON MD Jun 22, 2025 17:12
[2025-06-22] MEDS: SEVELAMER 800 MG TAB PO SCH (18:08)
[2025-06-22] MEDS ORDERED: hydrALAZINE HCL 20 MG/ML VL IV ONE (21:15)
[2025-06-22] MEDS: EPOETIN ALFA-EPBX 4,000 UNIT/ML VIAL SC ONE (21:16)
[2025-06-22] MEDS ORDERED: CARVEDILOL 12.5 MG TAB PO SCH ×2 (22:00)
[2025-06-22] MEDS ORDERED: ATORVASTATIN 20 MG TAB PO SCH (22:00)
[2025-06-22] MEDS ORDERED: HEPARIN SODIUM (PORCINE) 5000 UNITS/ML 1ML VIAL SC SCH (22:00)
[2025-06-22] MEDS ORDERED: LABETALOL HCL 200 MG TAB PO SCH (22:00)
--- NOTE | 2025-06-22 23:38 | DVHINCON2 ---
Date Seen: Jun 22, 2025 Referring Physician MD Victor M Reason for Consultation Elevated troponin History of Present Illness This is a 64-year-old female with a past medical history includes coronary artery disease status post triple vessel bypass in [place] in 2022 (on ASA/Stating), congestive heart failure, hypertension, dyslipidemia, COPD with O2 dependance at 3.5 LPM, end-stage renal disease on hemodialysis, and current tobacco use who presented to the emergency room via EMS with chief complaint of shortness of breath for 30 minutes prior to arrival. The patient reports a sudden onset of shortness of breath associated with diaphoresis and generalized weakness prompting her neighbor to call 911. She admits to missing hemodialysis treatments for two weeks. Upon EMS arrival she underwent a blood glucose level of 106 mg/dL and was administered a breathing treatment with some improvement. Upon arrival to the emergency room she underwent multiple 12 lead electrocardiograms x2 revealing a sinus tachycardia rhythm up to 126 bpm with diffuse T-wave inversion. She is currently on a nitroglycerin drip for blood pressure control. Denies chest pain, palpitations, or syncopal events. Latest troponin level was found at 52 ng/L. Follows up in the outpatient setting with Dr. Lord who will be scheduling the patient for an outpatient SPIKE for unspecified valve function. Chest x-ray shows pulmonary vascular congestion. Patient was admitted to the hospital. I am asked to consult on this patient. Past Medical History Past medical history reviewed. No other significant than mentioned above. Past Surgical History Triple-vessel CABG, 2022 Hemodialysis access Breast reduction Appendectomy Cholecystectomy Family History: Cerebrovascular accident (CVA) GRANDMOM GRANDFATHER FHx: breast cancer GRANDMOM Family history: Diabetes mellitus G8 MOTHER Family history: Hypertension G8 MOTHER Allergies: Coded Allergies: Diphenhydramine (Verified Allergy, Unknown, 08/01/14) Home Meds Active Scripts Nifedipine (Nifedipine Er) 30 Mg Tab, 60 MG PO Q12H for 60 Days, #240 TAB 1 Refill Prov:RADHA STEVENS DO 12/30/24 Albuterol Sulfate (Albuterol Sulfate) 0.083 % Neb, 1 VIAL NEB Q4HPRN, #50 VIAL Prov:BOLIVAR العلي MD 07/03/24 Labetalol HCl (Labetalol HCl) 200 Mg Tab, 200 MG PO BID for 30 Days, #60 TAB 2 Refills Prov:BOLIVAR العلي MD 07/03/24 Clonidine Hydrochloride (Clonidine Hcl) 0.1 Mg Tab, 0.1 MG PO TID for 30 Days, #90 TAB 1 Refill Prov:BOLIVAR العلي MD 07/03/24 Aspirin (Aspir-Low) 81 Mg Tab, 81 MG PO DAILY, #30 TAB Prov:BOLIVAR العلي MD 07/02/24 Atorvastatin Calcium (ATORVASTATIN CALCIUM) 40 Mg Tab, 40 MG PO DAILY for 30 Days, #30 TAB 1 Refill Prov:RADHA STEVENS DO 01/27/24 Pantoprazole Sodium Sesquihydr (Pantoprazole Sodium) 40 Mg Tab, 40 MG PO BID, #120 TAB Prov:ZECHARIAH RODAS MD 01/09/17 Fluticasone Propionate (FLOVENT HFA 110Mcg INH) 110 Mcg Ih, 2 PUFF INH BID, #1 I NHALER 0 Refills Prov:ZECHARIAH RODAS MD 04/22/15 Reported Medications Carvedilol (Carvedilol) 12.5 Mg Tab, 1 TAB PO BID 12/30/24 Vfolbtejam-Avantokqjnvopm-Lemp (Breztri Aerosphere 160-9-4.8 Mcg/Act) 1 Aer Aer, INH 12/30/24 Tizanidine Hydrochloride (Tizanidine Hcl) 2 Mg Tab, 1 TAB PO Q12HR for 30 Days, #60 06/30/24 Hydrocodone-Acetaminophen (Hydrocodone Bitartrate/AC 10-325 mg) 1 Tab Tab, 1 TAB PO TID for 30 Days, #90 06/30/24 Fluticasone Furoate (Inhalatio (Arnuity Ellipta) 100 Mcg/Act Inh, 1 PUFF IN DAILY for 90 Days, #90 01/25/24 Escitalopram Oxalate (ESCITALOPRAM OXALATE) 20 Mg Tab, 20 MG PO DAILY, TAB 01/25/24 Trazodone Hcl (Trazodone Hcl) 50 Mg Tab, 50 MG PO HS, MG 01/25/24 Semaglutide (Ozempic) 2 Mg/3 Ml Inj, 0.5 MG SC QWEEKLY 01/25/24 Current Medications Current Medications Medications (Trade) Dose Ordered Sig/Taina Route PRN Reason Start Time Stop Time Status Last Admin Dextrose 50 ml PRN PRN IV Blood Sugar LESS THAN 60 06/21/25 19:45 Cancel Dextrose 50 ml PRN PRN IV Blood Sugar LESS THAN 60 06/21/25 19:45 Diagnostic Test (Pha) (Accu-Chek Comfort Curve T) 1 strip ONCE STAT 06/21/25 19:44 06/21/25 20:08 DC 06/21/25 20:25 Nitroglycerin (Ntrostat Sublingual) 0.4 mg Q5MINP PRN SL FOR CHEST PAIN 06/21/25 23:15 06/22/25 13:18 Morphine Sulfate 2 mg Q30M PRN IV FOR CHEST PAIN 06/21/25 23:15 06/22/25 13:06 Albuterol (Ventolin Medneb) 2.5 mg Q6HR NEB 06/22/25 00:00 06/22/25 11:43 Ipratropium [place] (Atrovent Medneb) 0.5 mg Q6HP NEB 06/22/25 00:00 06/22/25 11:43 Diagnostic Test (Pha) (Accu-Chek Comfort Curve T) 1 strip Q6HR 06/22/25 00:00 06/22/25 01:26 DC 06/22/25 00:00 Insulin Human Regular (InsuLIN R) Q6HR SC 06/22/25 00:00 06/22/25 01:26 DC Dextrose 50 ml UD PRN IV Blood Sugar LESS THAN 60 06/21/25 23:30 06/22/25 01:26 DC Nitroglycerin 250 ml @ 1.5 mls/hr Q24H IV 06/22/25 01:00 06/22/25 09:39 Furosemide (Lasix Injection) 40 mg TID IV 06/22/25 06:00 06/22/25 12:06 DC 06/22/25 05:29 Carvedilol (Coreg Tablet) 12.5 mg Q12HR PO 06/22/25 22:00 06/22/25 12:06 DC Nifedipine (Procardia Xl (Time-Release)) 30 mg DAILY PO 06/23/25 10:00 Labetalol HCl (Normodyne Tablet) 200 mg Q12HR PO 06/22/25 22:00 06/22/25 14:20 DC Sevelamer HCl (Renagel) 800 mg TIDWM PO 06/22/25 18:00 Nifedipine (Procardia Xl (Time-Release)) 90 mg DAILY PO 06/23/25 10:00 UNV Carvedilol (Coreg Tablet) 25 mg Q12HR PO 06/22/25 22:00 UNV Aspirin 81 mg DAILY PO 06/23/25 10:00 Atorvastatin Calcium (Lipitor) 80 mg HS PO 06/22/25 22:00 Heparin Sodium (Porcine) 5,000 units Q12HR SC 06/22/25 22:00 UNV Review of Systems Constitutional: Diaphoresis, generalized weakness Ears, Nose, & Throat: No symptom reported Eyes: No symptom reported Neurological: No symptoms reported Pulmonary/Respiratory: SOB Cardiovascular: No symptom reported Gastrointestinal: No symptom reported Genitourinary: No symptom reported Musculoskeletal: No symptom reported Skin: No symptom reported Psychiatric: No symptom reported Endocrine: No symptom reported Hemotologic/Lymphatic: No symptom reported Vital Signs Vital Signs Date Time Temp Pulse Resp B/P (MAP) Pulse Ox O2 Delivery O2 Flow Rate FiO2 06/22/25 14:18 174/68 06/22/25 14:00 70 22 100 06/22/25 11:44 Nasal Cannula 2.0 06/22/25 11:44 28 06/22/25 09:15 97.3 97.3 Physical Exam GENERAL: Alert and oriented x 3. Appears weak and lethargic. EYES: PERRL, EOMI. Anicteric. HENT: Moist mucous membranes. LUNGS: Diminished breath sounds. CARDIOVASCULAR: Regular rate and rhythm. ABDOMEN: Soft, nontender and nondistended. EXTREMITIES: No edema. NEUROLOGIC: No focal neurological deficits. SKIN: Warm, dry. Labs/Diagnostic Data Labs Test 06/22/25 11:30 06/22/25 11:12 06/22/25 03:38 06/22/25 00:39 Range/Units Hemoglobin A1c 4.9 <5.7 % A1C Phosphorus Level 5.7 H 2.4-5.1 mg/dL Iron Level 75 50-170 ug/dL Total Iron Binding Capacity 212 L 250-425 ug/dL Percent Iron Saturation 35.4 15-50 % Ferritin 838.6 H 10-291 ng/mL Vitamin D 25-Hydroxy 21.1 L 30.0-100 ng/mL Hepatitis B Surface Antigen Negative Negative Parathyroid Hormone (Intact) 753.7 H 18.4-80.1 pg/mL White Blood Count 9.1 4.4-10.8 10^3/uL Red Blood Count 3.38 L 4.0-5.20 10^6/uL Hemoglobin 10.6 L 12.2-16.2 g/dL Hematocrit 32.6 #L 36.0-46.0 % Mean Corpuscular Volume 96.5 80.0-100.0 fL Mean Corpuscular Hemoglobin 31.4 28.0-32.0 pg Mean Corpuscular Hemoglobin Concent 32.6 32.0-36.0 g/dL Red Cell Distribution Width 14.2 11.8-14.3 % Platelet Count 205 140-450 10^3/uL Mean Platelet Volume 9.6 6.9-10.8 fL Neutrophils (%) (Auto) 65.8 37.0-80.0 % Lymphocytes (%) (Auto) 23.1 10.0-50.0 % Monocytes (%) (Auto) 7.9 0.0-12.0 % Eosinophils (%) (Auto) 2.2 0.0-7.0 % Basophils (%) (Auto) 1.0 0.0-2.0 % Neutrophils # (Auto) 6.0 1.6-8.6 10 ^3/uL Lymphocytes # (Auto) 2.1 0.4-5.4 10 ^3/uL Monocytes # (Auto) 0.7 0-1.3 10 ^3/uL Eosinophils # (Auto) 0.2 0-0.8 10 ^3/uL Basophils # (Auto) 0.1 0-0.2 10 ^3/uL Nucleated Red Blood Cells 0.1 % Sodium Level 143 136-145 mmol/L Potassium Level 5.8 *H 3.5-5.1 mmol/L Chloride Level 113 H 98-107 mmol/L Carbon Dioxide Level 18 L 20-31 mmol/L Anion Gap 12 5-15 Blood Urea Nitrogen 49 H 9-23 mg/dL Creatinine 4.20 H 0.550-1.02 mg/dL Glomerular Filtration Rate Calc 11 >90 mL/min BUN/Creatinine Ratio 11.7 10.0-20.0 Serum Glucose 100 74-106 mg/dL Calcium Level 8.9 8.7-10.4 mg/dL Total Bilirubin 0.2 0.2-1.0 mg/dL Aspartate Amino Transferase (AST) 15 13-40 U/L Alanine Aminotransferase (ALT) 28 7-40 U/L Alkaline Phosphatase 160 H 46-116 U/L Total Protein 6.7 5.7-8.2 g/dL Albumin 4.1 3.2-4.8 g/dL Blood Gas Specimen Type Arterial Blood Gas Sample Site Right radial Blood Gas Patient Temperature 37.0 Arterial Blood Date Drawn Arterial Blood pH 7.259 L 7.350-7.450 Arterial Blood Partial Pressure CO2 41.0 32.0-45.0 mmHg Arterial Blood Partial Pressure O2 163.1 H 83.0-108.0 mmHg Arterial Blood HCO3 17.9 L 21.0-28.0 mmol/L Arterial Blood Oxygen Saturation 98.8 H 94.0-98.0 % Arterial Blood Base Excess -8.6 L -2.0-3.0 mmol/L Arterial Blood Oxyhemoglobin 98.0 94.0-98.0 % Arterial Blood Carboxyhemoglobin 0.3 L 0.5-1.5 % Arterial Blood Methemoglobin 0.5 0.0-1.5 % Wenceslao Test Yes Blood Gas Total Hemoglobin 12.00 12.0-16.0 g/dL Blood Gas Liter Flow 3.00 Blood Gas Modality Nasal cannula Blood Gas Spontaneous Rate 20 FiO2 % 32.0 Test 06/21/25 23:59 06/21/25 21:39 06/21/25 20:30 06/21/25 18:59 Range/Units POC Glucose 93 70-106 mg/dl Troponin I High Sensitivity 52 *H </=34 ng/L Influenza Type A Antigen Negative Negative Influenza Type B Antigen Negative Negative SARS-CoV-2 Antigen (Rapid) Negative NEGATIVE B-Type Natriuretic Peptide 920.46 0-100 pg/mL Assessment Hypertensive urgency. ESRD on HD with hyperkalemia and missed dialysis x2 weeks. Kash-cardiac syndrome Type III. NSTEMI, likely type 2 secondary to above. Coronary artery disease status post triple-vessel CABG (on ASA/statin). COPD with O2 dependence. Dyslipidemia. Tobacco use. Medical non-compliance. Obesity. Plan/Recommendation I agree with your ongoing assessment and care of plan. Patient has been seen by Chela Cochran NP on my behalf, her and I discussed the plan with the patient. Cardiac catheterization (07/02/2024): Multivessel [place] coronary artery disease with SVG to CX widely patent and ORTEGA not engaged. Transthoracic echocardiogram (07/02/2024): LVEF 55% with severe LVH. Left atrium dilated. Rwaeazqk-ce-bnflmm aortic/mitral valve regurgitation. Multiple 12 lead electrocardiograms x2 sinus rhythm with diffuse T-wave inversion. Serial troponin levels with latest at 52 ng/L. Repeat a transthoracic echocardiogram to delineate cardiac function. Initiate aggressive oral antihypertensive therapy and titrate off NTG drip as tolerated. Initiate single-antiplatelet therapy and lipid lowering agent given history of CAD. Initiate DVT/VTE prophylaxis. Monitor ECG changes closely and notify. Continue Nephrology recommendations. Additional plan as per the hospital course. Plan discussed with: Patient NYHA Physical activity limitations: Class3(Marked) ordinary Date of Service: Jun 22, 2025 Billing Provider: JYOTI COMBS MD Cardiology Common Codes: 20282-[id number] INP/OBS CARE (High), [id number]-[id number] CARE 30-74 MIN JYOTI COMBS MD Jun 22, 2025 14:40
== END 2025-06-22 21:30 | disposition home or self-care (01) | DRG 280 ==
LOC: ER 17:49 → EDBD 17:49 → OVERFLOW 23:08
PROVIDERS: ADMIT Internal Medicine; ATTEND Internal Medicine
DX: I13.2 Hypertensive heart and chronic kidney disease with heart failure and with stage 5 chronic kidney disease, or end stage renal disease (principal); I50.33 Acute on chronic diastolic (congestive) heart failure; I21.A1 Myocardial infarction type 2; N18.6 End stage renal disease; J96.10 Chronic respiratory failure, unspecified whether with hypoxia or hypercapnia; E87.20 Acidosis, unspecified; E87.5 Hyperkalemia; I16.0 Hypertensive urgency; I25.10 Atherosclerotic heart disease of native coronary artery without angina pectoris; J44.9 Chronic obstructive pulmonary disease, unspecified; F17.210 Nicotine dependence, cigarettes, uncomplicated; E78.5 Hyperlipidemia, unspecified; Z20.822 Contact with and (suspected) exposure to COVID-19; E66.9 Obesity, unspecified; I34.0 Nonrheumatic mitral (valve) insufficiency; Z68.29 Body mass index [BMI] 29.0-29.9, adult; Z88.8 Allergy status to other drugs, medicaments and biological substances; Z80.3 Family history of malignant neoplasm of breast; Z90.49 Acquired absence of other specified parts of digestive tract; I25.2 Old myocardial infarction; Z83.3 Family history of diabetes mellitus; Z91.158 Patient's noncompliance with renal dialysis for other reason; Z99.2 Dependence on renal dialysis; Z99.81 Dependence on supplemental oxygen; Z95.1 Presence of aortocoronary bypass graft; Z91.148 Patient's other noncompliance with medication regimen for other reason; Z90.710 Acquired absence of both cervix and uterus; Z86.73 Personal history of transient ischemic attack (TIA), and cerebral infarction without residual deficits; Z82.49 Family history of ischemic heart disease and other diseases of the circulatory system; Z82.3 Family history of stroke; Z79.899 Other long term (current) drug therapy
CPT/HCPCS: 36415; 36600; 71045; 80048; 80053; 82306; 82728; 82805; 82962; 83036; 83540; 83550; 83880; 83970; 84100; 84484; 85025; 87340; 87426; 87804; 90935; 93005; 94640; 96365; 96366; 96375; G0378; J1642; J1815

== ENCOUNTER 2025-07-17 13:33 | Emergency (ER) | payer OTHER ==
[~2025-07-17] VITALS: Ht 147.3 cm; Wt 64.7 kg
--- NOTE | 2025-07-17 14:12 | ECG ---
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
--- NOTE | 2025-07-17 15:02 | ED.PDOC ---
History of Present Illness HPI Comments 64 y.o female presents to the ED for a chief complaint of nausea, vomiting, cough and diarrhea x 1 week. Patient reports she has missed dialysis for the whole week due to feeling ill. She usually received dialysis Saturday, and Saturday. She rather come to the ED to get evaluated to so she skipped toda y's session. She denies any chest pain, SOB, fever, chills, abdominal pain. Chief Complaint: Nausea/Vomiting Time Seen by MD: 13:52 Primary Care Provider: UNKNOWN NAME Reviewed Notes: Nurses Notes, Medications, Allergies Allergies: Coded Allergies: Diphenhydramine (Verified Allergy, Unknown, 08/01/14) Home Meds Active Scripts Nifedipine (Nifedipine Er) 30 Mg Tab, 60 MG PO Q12H for 60 Days, #240 TAB 1 Refill Prov:RADHA STEVENS DO 12/30/24 Albuterol Sulfate (Albuterol Sulfate) 0.083 % Neb, 1 VIAL NEB Q4HPRN, #50 VIAL Prov:BOLIVAR اعللي MD 07/03/24 Labetalol HCl (Labetalol HCl) 200 Mg Tab, 200 MG PO BID for 30 Days, #60 TAB 2 Refills Prov:BOLIVAR العلي MD 07/03/24 Clonidine Hydrochloride (Clonidine Hcl) 0.1 Mg Tab, 0.1 MG PO TID for 30 Days, #90 TAB 1 Refill Prov:BOLIVAR العلي MD 07/03/24 Aspirin (Aspir-Low) 81 Mg Tab, 81 MG PO DAILY, #30 TAB Prov:BOLIVAR العلي MD 07/02/24 Atorvastatin Calcium (ATORVASTATIN CALCIUM) 40 Mg Tab, 40 MG PO DAILY for 30 Days, #30 TAB 1 Refill Prov:RADHA STEVENS DO 01/27/24 Pantoprazole Sodium Sesquihydr (Pantoprazole Sodium) 40 Mg Tab, 40 MG PO BID, #120 TAB Prov:ZECHARIAH RODAS MD 01/09/17 Fluticasone Propionate (FLOVENT HFA 110Mcg INH) 110 Mcg Ih, 2 PUFF INH BID, #1 INHALER 0 Refills Prov:ZECHARIAH RODAS MD 04/22/15 Reported Medications Carvedilol (Carvedilol) 12.5 Mg Tab, 1 TAB PO BID 12/30/24 Qdufmrbqxq-Zhmijvcebschgq-Ebvd (Breztri Aerosphere 160-9-4.8 Mcg/Act) 1 Aer Aer, INH 12/30/24 Tizanidine Hydrochloride (Tizanidine Hcl) 2 Mg Tab, 1 TAB PO Q12HR for 30 Days, #60 06/30/24 Hydrocodone-Acetaminophen (Hydrocodone Bitartrate/AC 10-325 mg) 1 Tab Tab, 1 TAB PO TID for 30 Days, #90 06/30/24 Fluticasone Furoate (Inhalatio (Arnuity Ellipta) 100 Mcg/Act Inh, 1 PUFF IN DAILY for 90 Days, #90 01/25/24 Escitalopram Oxalate (ESCITALOPRAM OXALATE) 20 Mg Tab, 20 MG PO DAILY, TAB 01/25/24 Trazodone Hcl (Trazodone Hcl) 50 Mg Tab, 50 MG PO HS, MG 01/25/24 Semaglutide (Ozempic) 2 Mg/3 Ml Inj, 0.5 MG SC QWEEKLY 01/25/24 Information Source: Patient Mode of Arrival: Ambulatory Severity: Moderate Timing: Weeks (1) Past Medical History PAST MEDICAL HISTORY: Angina, CAD, COPD, ESRD, High Lipids, HTN, [place] Surgical History: Appendectomy, CABG, Cholecystectomy, , Hysterectomy 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 THRESHING OPERATOR History Family History Family History: No family hx of Heart nayla, No family hx ofKidney nayla, No family hx of Liver nayla, No family hx of Lung nayla, Family hx of DM, Family hx of Cancer, Family hx of HTN, Family hx of stroke Social History Smoker: Cigarettes, Less Than 1 Pack/Day Alcohol: Occasionally Drugs: Denies Drug Use Lives In: Home Constitutional: reports: weakness; denies: chills, diaphoresis, fatigue, fever, malaise, sweats, others EENTM: denies: blurred vision, double vision, ear bleeding, ear discharge, ear drainage, ear pain, ear ringing, eye pain, eye redness, hearing loss, mouth pain, mouth swelling, nasal discharge, nose bleeding, nose congestion, nose pain, photophobia, tearing, throat pain, throat swelling, voice changes, others Respiratory: reports: cough; denies: hemoptysis, orthopnea, SOB at rest, shortness of breath, SOB with excertion, stridor, wheezing, others Cardiovascular: denies: chest pain, dizzy spells, diaphoresis, Dyspnea on exertion, edema, irregular heart beat, left arm pain, lightheadedness, palpitations, PND, syncope, others Gastrointestinal: reports: diarrhea, nausea, vomiting; denies: abdomen distended, abdominal pain, blood streaked bowels, constipated, dysphagia, difficulty swallowing, hematemesis, melena, poor appetite, poor fluid intake, rectal bleeding, rectal pain, others Genitourinary: denies: abnormal vagina bleeding, burning, dyspareunia, dysuria, flank pain, frequency, hematuria, incontinence, pain, , vagina di scharge, urgency, others Neurological: denies: dizziness, fainting, headache, left sided numbness, left sided weakness, numbness, paresthesia, pre-existing deficit, right sided numbness, right sided weakness, seizure, speech problems, tingling, tremors, weakness, others Musculoskeletal: denies: back pain, gout, joint pain, joint swelling, muscle pain, muscle stiffness, neck pain, others Integumetry: denies: bruises, change in color, change in hair/nails, dryness, laceration, lesions, lumps, rash, wounds, others Allergic/Immunocompromised: denies: Difficulty Healing, Frequent Infections, Hives, Itching, others Hematologic/Lymphatic: denies: anemia, blood clots, easy bleeding, easy bruising, swollen glands, others Endocrine: denies: excessive hunger, excessive sweating, excessive thirst, excessive urination, flushing, intolerance to cold, intolerance to heat, unexplained weight gain, unexplained weight loss, others Psychiatric: denies: anxiety, bipolar disorder, depression, hopeless, panic disorder, schizophrenia, sleepless, suicidal, others All Other Systems: Reviewed and Negative Physical Exam General Appearance: No Apparent Distress, Normal HEENT: Normal ENT Inspection, Pharynx Normal, TMs Normal Neck: Full Range of Motion, Non-Tender, Normal, Normal Inspection Respiratory: Chest Non-Tender, Lungs Clear, No Accessory Muscle Use, No Respiratory Distress, Normal Breath Sounds Cardiovascular: No Edema, No JVD, No Murmur, No Gallop, Normal Peripheral Pulses, Regular Rate/Rhythm Breast Exam: Deferred Gastrointestinal: No Organomegaly, Non Tender, No Pulsatile Mass, Normal Bowel Sounds, Soft Genitalia: Deferred Pelvic: Deferred Rectal: Deferred Extremities: No calf tenderness, Normal capillary refill, Normal inspection, N ormal range of motion, Non-tender, No pedal edema Musculoskeletal : Apperance: Normal 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 Was a procedure done?: No Differential Dx Considerations may include: Dehydration, Viral infection, Electrolyte imbalance X-Ray, Labs, Meds, VS Vital Signs Date Time Temp Pulse Resp B/P (MAP) Pulse Ox O2 Delivery O2 Flow Rate FiO2 07/17/25 16:42 99.7 69 24 178/101 (126) 92 99.7 07/17/25 13:56 86 07/17/25 13:40 98.1 83 18 155/85 97 98.1 Lab Test 07/17/25 17:44 07/17/25 16:37 Range/Units Troponin I High Sensitivity Pending 45 *H </=34 ng/L White Blood Count 7.9 4.4-10.8 10^3/uL Red Blood Count 3.63 L 4.0-5.20 10^6/uL Hemoglobin 11.2 L 12.2-16.2 g/dL Hematocrit 35.3 L 36.0-46.0 % Mean Corpuscular Volume 97.2 80.0-100.0 fL Mean Corpuscular Hemoglobin 31.0 28.0-32.0 pg Mean Corpuscular Hemoglobin Concent 31.9 L 32.0-36.0 g/dL Red Cell Distribution Width 14.2 11.8-14.3 % Platelet Count 237 140-450 10^3/uL Mean Platelet Volume 9.8 6.9-10.8 fL Neutrophils (%) (Auto) 63.6 37.0-80.0 % Lymphocytes (%) (Auto) 19.8 10.0-50.0 % Monocytes (%) (Auto) 12.2 H 0.0-12.0 % Eosinophils (%) (Auto) 3.8 0.0-7.0 % Basophils (%) (Auto) 0.6 0.0-2.0 % Neutrophils # (Auto) 5.0 1.6-8.6 10 ^3/uL Lymphocytes # (Auto) 1.6 0.4-5.4 10 ^3/uL Monocytes # (Auto) 1.0 0-1.3 10 ^3/uL Eosinophils # (Auto) 0.3 0-0.8 10 ^3/uL Basophils # (Auto) 0 0-0.2 10 ^3/uL Nucleated Red Blood Cells 0.1 % Sodium Level 142 136-145 mmol/L Potassium Level 4.5 3.5-5.1 mmol/L Chloride Level 109 H 98-107 mmol/L Carbon Dioxide Level 18 L 20-31 mmol/L Anion Gap 15 5-15 Blood Urea Nitrogen 51 H 9-23 mg/dL Creatinine 4.65 H 0.550-1.02 mg/dL Glomerular Filtration Rate Calc 10 >90 mL/min BUN/Creatinine Ratio 11.0 10.0-20.0 Serum Glucose 74 74-106 mg/dL Calcium Level 9.4 8.7-10.4 mg/dL Time of 1ST Reevaluation: 15:02 Reevaluation 1ST: Unchanged Patient Education/Counseling: Diagnosis, Treatment, Prognosis Family Education/Counseling: No Family Present SEPSIS Sepsis Screen Date sepsis recognized/suspect: Jul 17, 2025 Time Sepsis recognized/suspect: 1340 Recent Procedure: No On Antibiotic Therapy: No Respiratory Rate >20: No Heart Rate >90: No Temp<36 C (96.8 F) or >38.3 C: No SBP <90 or MAP <65 mmHG: No New Acute Mental Status Change: No Is the patient on CPAP, BIPAP,: No Physician Orders Electrocardigram (07/17/25 13:47) Chest Portable (07/17/25 16:18) Electrocardigram (07/17/25 16:18) Troponin-I Hs (07/17/25 17:18) Troponin-I Hs (07/17/25 19:18) Electrocardigram (07/17/25 17:18) Electrocardigram (07/17/25 19:18) Vital Signs Date Time Temp Pulse Resp B/P (MAP) Pulse Ox O2 Delivery O2 Flow Rate FiO2 07/17/25 16:42 99.7 69 24 178/101 (126) 92 99.7 07/17/25 13:56 86 07/17/25 13:40 98.1 83 18 155/85 97 98.1 Laboratory Tests Test 07/17/25 16:37 White Blood Count 7.9 10^3/uL (4.4-10.8) Departure 1 Departure Time of Disposition: 18:18 (Patient with elevated troponin worsening volume overload. Patient needs urgent dialysis. We will admit patient for further workup and expert consultation.) Impression: Primary Impression: Acute chest pain Additional Impressions: Generalized weakness Nausea and vomiting Elevated troponin ESRD needing dialysis Disposition: ADMITTED INPATIENT Admit to: Tele Condition: Guarded Critical Care Note Critical Care Time?: No Stability Stability form required: No I personally scribed for VONDA CHUNG MD ([email or web address]) on 07/17/25 at 15:02. Electronically submitted by Donna Burciaga ([facility]). VONDA CHUNG MD Jul 17, 2025 15:02
--- NOTE | 2025-07-17 16:47 | DVH ---
CHEST RADIOGRAPH Indication: weakness Technique: Single frontal view of the chest was obtained Comparison: XY CHEST XRAY 1 VIEW on DOS: 06/21/25, XY CHEST PORTABLE on DOS: 12/29/24 FINDINGS: Lines and Tubes: Tunnel catheter is noted on the right. 3 sternal closure devices are in place. Lungs: No focal consolidation. Pleura: No effusion. No pneumothorax. Cardiomediastinal contours: Stable Bones: No acute osseous abnormality. IMPRESSION: 1. Minimal change from 06/21/2025. 2. Hazy increased density over the lower lung novoa soon to be due to positioning of the breasts.
[2025-07-17 17:22] LABS: Hematocrit 35.3 % (36.0-46.0); Hemoglobin 11.2 g/dL (12.2-16.2); Mean Corpuscular Hemoglobin 31.0 pg (28.0-32.0); Mean Corpuscular Volume 97.2 fL (80.0-100.0); Nucleated Red Blood Cells % 0.1 %
[2025-07-17 17:33] LABS: Potassium 4.5 mmol/L (3.5-5.1); Sodium 142 mmol/L (136-145)
[2025-07-17 17:34] LABS: Anion Gap 15 (5-15); Calcium 9.4 mg/dL (8.7-10.4)
[2025-07-17 17:39] LABS: BUN/Creatinine Ratio 11.0 (10.0-20.0)
[2025-07-17 17:46] LABS: Blood Urea Nitrogen 51 mg/dL (9-23); Carbon Dioxide 18 mmol/L (20-31); Chloride 109 mmol/L (98-107); Glucose 74 mg/dL (74-106)
[2025-07-17 21:26] VITALS: BP 138/75; PULSE 86; RESP 18; TEMP 97.8; O2SAT 97
--- NOTE | 2025-07-17 23:01 | DVH ---
Exam: CT ABDOMEN WITHOUT CONTRAST History: abdominal discomfort, nausea/vomiting Comparison Study: CT CT AB PEL WO CON-NO ORAL OR IV on DOS: 12/29/24, CT CT AB PEL WO CON-NO ORAL OR IV on DOS: 01/24/24, CT ABD PELVIS WO CONTRAST on DOS: 09/16/19 Technique: Multidetector spiral CT of the abdomen was performed from lung bases to iliac crest. Imaging was performed without IV contrast. Axial, coronal and sagittal multiplanar reformats were obtained from the axial data set by the technologist. Radiation Dose : CT Dose: CTDI volume is 11.02 mGy. Dose-length product is 544.23 mGy*cm Findings: Evaluation of solid organs is limited due to lack of intravenous contrast use. Lung Bases: No acute or significant lung base finding. Multichamber cardiac enlargement. No pleural or pericardial effusion. Liver: The liver is normal in size. No focal lesions. Gallbladder and Biliary Tree: Gallbladder is surgically absent. Spleen: Unremarkable Pancreas: The pancreas is grossly normal in appearance. Adrenal Glands: Unremarkable Kidneys: Right kidney again appears lobulated, atrophic, and malpositioned line within the upper pelvis. Visualized Bowel: The stomach is grossly normal in appearance. Small bowel and colon are normal in caliber and distribution. Ascites: Absent Lymphadenopathy: No mesenteric, retroperitoneal or periportal lymphadenopathy. Abdominal Wall and Mesentery: Unremarkable. Vasculature: The visualized abdominal aorta is normal in size and caliber. Evaluation of abdominal and pelvic vessels is limited due to lack of intravenous contrast. Musculoskeletal: No aggressive focal bony lesions, acute fractures or dislocation. IMPRESSION: No acute abdominal finding. Radiation optimization: All CT scans at this facility use at least one of these dose optimization techniques: automated exposure control mA and/or kV adjustment per patient size (includes targeted exams where dose is matched to clinical indication) or iterative reconstruction.
[2025-07-18] MEDS ORDERED: ZOFR4T PO (00:25)
--- NOTE | 2025-07-18 21:28 | DVHINCON2 ---
DATE OF CONSULTATION: 07/17/2025 CHIEF COMPLAINT: Coming in for nausea and vomiting. HISTORY OF PRESENT ILLNESS: This is a 64-year-old female with past medical history for a history of coronary artery disease status post CABG procedure 2-1/2 years ago, resistant hypertension, COPD, chronic respiratory failure, end-stage renal disease, on hemodialysis, who has a known history of medical noncompliance with dialysis, who presents to the Emergency Room with a chief complaint of nausea and vomiting for about 4 days. The patient says her last dialysis session was over a week ago. She has felt a little bit of palpitations at home, but no chest pain. She denies any fevers or chills. Has had some loose stools over the last 2 days, 2 episodes for each day, she says. She denies any shortness of breath. She does have chronic orthopnea, not worse than usual. She has an occasional cough without any phlegm, and again, she denies any fevers or chills. She says she has not had any bloody or tarry stools or any urinary frequency, urgency, or burning sensation. She still makes urine. She also denies any significant abdominal pain. She says she has been somewhat discomfortable. She denies any bloody or tarry stools, any urinary frequency, urgency, or burning sensation. The patient says she has seen just minimal lower extremity edema and she usually typically uses 1 pillow underneath her head when sleeping. PAST MEDICAL HISTORY: End-stage renal disease on hemodialysis Saturday, , and Saturdays. Diabetes mellitus type 2. Coronary artery disease status post CABG. Chronic respiratory failure, on 3 liters nasal cannula continuously at home. PAST SURGICAL HISTORY: CABG procedure about 2-1/2 years ago, 2 C-sections, cholecystectomy, appendectomy at 14, and bilateral breast reductions. SOCIAL HISTORY: She is a tobacco user, about 10 cigarettes a day. She has been smoking since she was 17. No alcohol. No illicit drugs. MEDICATIONS AT HOME: Per medical reconciliation. MEDICATION ALLERGIES: ALLERGY TO BENADRYL, WHICH CAUSES THROAT SWELLING. REVIEW OF SYSTEMS: A 10-point review of systems was covered. The patient was negative with exception to what was present in history of present illness. PHYSICAL EXAMINATION: VITAL SIGNS: Temperature 97.8, pulse rate 86, respiratory rate 18, blood pressure 138/75 with a pulse ox of about 97% on 2 liters nasal cannula. GENERAL: She seems to be alert x4, not in acute distress female, not using extra-respiratory muscles of breathing, sitting up in a chair. HEENT: Normocephalic, atraumatic. Extraocular muscles intact. Pupils are equally round and reactive to light and accommodation. Mucous membranes moist. CARDIOVASCULAR: S1, S2 positive, regular rate and rhythm. No rubs, gallops, or murmurs. LUNGS: Clear to auscultation, but with diminished breath sounds in bilateral posterior bases. No wheezing or rhonchi appreciated. ABDOMEN: Seems to be soft, nontender, and nondistended. Mild discomfort on palpation, kind of diffusely. No guarding. No rebound. EXTREMITIES: There is no lower extremity edema, clubbing, or cyanosis. NEUROLOGIC: No focal deficits on examination. Cranial nerve testing 2-12 overall seems to be intact. LABORATORY WORKUP: Shows a white count of 7.9, H and H of 11.2/35.3, platelet count of 237,000. There is no neutrophil shift. Chemistry shows sodium 142, potassium 4.5, chloride 100, carbon dioxide of 18, anion gap of 15, BUN of 51, creatinine 4.65, calcium 9.4. Troponins of 45, 47, and 49. IMAGING: Chest x-ray shows hazy increased density over the lower lung novoa assumed to be due to positioning of the breasts, minimal change from 06/19/2025 in comparison. EKG shows sinus rhythm, ventricular rate 86, atrial premature complexes, LVH pattern with nonspecific T-wave changes. DIAGNOSES: * Nausea and vomiting. * Elevated troponins. * Dialysis noncompliance. PLAN: The patient was seen in the Emergency Room. Full assessment was completed. The patient is currently afebrile. No leukocytosis. The patient currently talking in full sentences, not in any form of respiratory distress, using 2 liters of nasal cannula, sating about 96% and up. The patient typically uses about 3 liters of nasal cannula oxygen at home. She has missed her dialysis for about a week or so. She does still make urine at home. She is currently feeling overall well. Has not had any episodes of nausea or vomiting since she has been in the Emergency Room. The chest x-ray was completed that shows no acute lung pathology. The patient also did have a CT of her abdomen completed given that she was having some abdominal discomfort with nausea and vomiting. The patient was ruled out for any acute intraabdominal pathology such as obstruction. The patient incidentally was also found to have elevated cardiac enzymes that are minimally elevated, which she also had on her previous admission here to this hospital. The patient likely has accumulation of troponins due to her end-stage renal disease versus nonspecific elevations in her cardiac enzymes. She did have a repeat cardiac catheterization about a year ago with Dr. Swann, Cardiology, who basically said that her SVG to circumflex was widely patent at that time and wrote that she has multivessel [facility] coronary artery disease still present. The patient will be recommended to follow up with Cardiology, which referral will be given to her for a close followup. The patient will be arranged for a PCP followup. The patient's case was discussed with Nephrology. Given that she has missed about a week or more of dialysis, the patient does not seem to be in any urgency for emergent dialysis at this time. At this time, the patient does not seem to be severely acidotic, hyperkalemic, volume overloaded or have any EKG changes to require emergent dialysis. The patient's case was discussed with Nephrology group, Dr. Lopez, who will call her on Saturday to schedule her for a dialysis session on Saturday as well. The patient before given discharge instructions left against medical advice; however, the patient has been ordered Zofran to be sent out to her emergency room 4 mg p.o. p.r.n. q.8 hours and case management has been notified to reach out to her to arrange her appointments with PCP and Cardiology on Saturday, the patient will be also reached out for her dialysis session to be completed at that time. Dharmesh Frederick MD LM/MARILYN TID: [id number] RECEIPT: [id number]
== END 2025-07-17 22:53 | disposition left against medical advice (07) ==
LOC: ER 13:33
DX: R07.89 Other chest pain (principal); R53.1 Weakness; R11.2 Nausea with vomiting, unspecified; R79.89 Other specified abnormal findings of blood chemistry; I12.0 Hypertensive chronic kidney disease with stage 5 chronic kidney disease or end stage renal disease; E11.22 Type 2 diabetes mellitus with diabetic chronic kidney disease; N18.6 End stage renal disease; E87.5 Hyperkalemia; F17.210 Nicotine dependence, cigarettes, uncomplicated; I25.2 Old myocardial infarction; J44.9 Chronic obstructive pulmonary disease, unspecified; Z79.82 Long term (current) use of aspirin; Z79.899 Other long term (current) drug therapy; Z90.49 Acquired absence of other specified parts of digestive tract; Z90.710 Acquired absence of both cervix and uterus; Z91.158 Patient's noncompliance with renal dialysis for other reason; Z95.1 Presence of aortocoronary bypass graft; Z99.2 Dependence on renal dialysis; Z88.8 Allergy status to other drugs, medicaments and biological substances
CPT/HCPCS: 36415; 71045; 74150; 80048; 84484; 85025; 93005

== ENCOUNTER 2025-07-29 17:14 | Emergency (ER) | payer OTHER ==
[~2025-07-29] VITALS: Ht 147.3 cm; Wt 61.3 kg
[~2025-07-29 17:14] MED LIST changes: +ZOFR4T PO
[2025-07-29 18:10] VITALS: PULSE 89; RESP 22; O2SAT 100
--- NOTE | 2025-07-29 18:36 | ED.PDOC ---
GI ASSESSMENT HPI Comments 64-year-old female who came to ER for abdominal pain. Patient has history of hypertension, end-stage renal disease, on dialysis every Saturday and Saturday, got dialyzed today. Patient states for the past 6 days she has been experiencing diffuse abdominal pain, cramping, with bouts of nausea, vomiting and diarrhea. However, now feeling constipated as she has not had a bowel movement in 2 days. Patient reports she was already feeling unwell before she went to her dialysis. However, after the session ended she had worsening abdominal cramping. They noted that her blood pressure was elevated at 203/ 103 mm Hg. Denies any chest pain, shortness of breath, is on her usual home O2 settings. Chief Complaint: Abdominal Pain Time Seen by MD: 18:36 Primary Care Provider: UNKNOWN NAME Reviewed Notes: Nurses Notes Allergies: Coded Allergies: Diphenhydramine (Verified Allergy, Unknown, 08/01/14) Home Meds Active Scripts Ondansetron Odt 4MG Tab (ZOFRAN PO) 4 Mg Tb, 4 MG PO Q8HPRN PRN for 10 Days, #30 TAB ODT TAB-DISSOLVE IN MOUTH, THEN SWALLOW Prov:JONA SIMPSON MD 07/18/25 Nifedipine (Nifedipine Er) 30 Mg Tab, 60 MG PO Q12H for 60 Days, #240 TAB 1 Refill Prov:RADHA STEVENS DO 12/30/24 Albuterol Sulfate (Albuterol Sulfate) 0.083 % Neb, 1 VIAL NEB Q4HPRN, #50 VIAL Prov:BOLIVAR العلي MD 07/03/24 Labetalol HCl (Labetalol HCl) 200 Mg Tab, 200 MG PO BID for 30 Days, #60 TAB 2 Refills Prov:BOLIVAR العلي MD 07/03/24 Clonidine Hydrochloride (Clonidine Hcl) 0.1 Mg Tab, 0.1 MG PO TID for 30 Days, #90 TAB 1 Refill Prov:BOLIVAR العلي MD 07/03/24 Aspirin (Aspir-Low) 81 Mg Tab, 81 MG PO DAILY, #30 TAB Prov:BOLIVAR العلي MD 07/02/24 Atorvastatin Calcium (ATORVASTATIN CALCIUM) 40 Mg Tab, 40 MG PO DAILY for 30 Days, #30 TAB 1 Refill Prov:RADHA STEVENS DO 01/27/24 Pantoprazole Sodium Sesquihydr (Pantoprazole Sodium) 40 Mg Tab, 40 MG PO BID, #120 TAB Prov:ZECHARIAH RODAS MD 01/09/17 Fluticasone Propionate (FLOVENT HFA 110Mcg INH) 110 Mcg Ih, 2 PUFF INH BID, #1 INHALER 0 Refills Prov:ZECHARIAH RODAS MD 04/22/15 Reported Medications Carvedilol (Carvedilol) 12.5 Mg Tab, 1 TAB PO BID 12/30/24 Xjdoqhmksq-Qoahheyiyogpgu-Pgea (Breztri Aerosphere 160-9-4.8 Mcg/Act) 1 Aer Aer, INH 12/30/24 Tizanidine Hydrochloride (Tizanidine Hcl) 2 Mg Tab, 1 TAB PO Q12HR for 30 Days, #60 06/30/24 Hydrocodone-Acetaminophen (Hydrocodone Bitartrate/AC 10-325 mg) 1 Tab Tab, 1 TAB PO TID for 30 Days, #90 06/30/24 Fluticasone Furoate (Inhalatio (Arnuity Ellipta) 100 Mcg/Act Inh, 1 PUFF IN DAILY for 90 Days, #90 01/25/24 Escitalopram Oxalate (ESCITALOPRAM OXALATE) 20 Mg Tab, 20 MG PO DAILY, TAB 01/25/24 Trazodone Hcl (Trazodone Hcl) 50 Mg Tab, 50 MG PO HS, MG 01/25/24 Semaglutide (Ozempic) 2 Mg/3 Ml Inj, 0.5 MG SC QWEEKLY 01/25/24 Information Source: Patient Mode of Arrival: EMS Timing: Days Duration: Intermittent Past Medical History PAST MEDICAL HISTORY: Angina, CAD, COPD, ESRD, High Lipids, HTN, [facility] Surgical History: Appendectomy, CABG, Cholecystectomy, , Hysterectomy Surgical History (Other): Dialysis every Saturday and Saturday [employer] History: No Pertinent [employer] History Family History Family History: No family hx of Heart nayla, No family hx ofKidney nayla, No family hx of Liver nayla, No family hx of Lung nayla, Family hx of DM, Family hx of Cancer, Family hx of HTN, Family hx of stroke Social History Smoker: Cigarettes, Less Than 1 Pack/Day Alcohol: Occasionally Drugs: Denies Drug Use Lives In: Home Constitutional: denies: chills, diaphoresis, fatigue, fever, malaise, sweats, weakness, others EENTM: denies: blurred vision, double vision, ear bleeding, ear discharge, ear drainage, ear pain, ear ringing, eye pain, eye redness, hearing loss, mouth pain, mouth swelling, nasal discharge, nose bleeding, nose congestion, nose pain, photophobia, tearing, throat pain, throat swelling, voice changes, others Respiratory: denies: cough, hemoptysis, orthopnea, SOB at rest, shortness of breath, SOB with excertion, stridor, wheezing, others Cardiovascular: denies: chest pain, dizzy spells, diaphoresis, Dyspnea on exertion, edema, irregular heart beat, left arm pain, lightheadedness, palpitations, PND, syncope, others Gastrointestinal: reports: constipated, diarrhea, nausea, vomiting; denies: abdomen distended, abdominal pain, blood streaked bowels, dysphagia, difficulty swallowing, hematemesis, melena, poor appetite, poor fluid intake, rectal bleeding, rectal pain, others Genitourinary: denies: abnormal vagina bleeding, burning, dyspareunia, dysuria, flank pain, frequency, hematuria, incontinence, pain, , vagina discharge, urgency, others Neurological: denies: dizziness, fainting, headache, left sided numbness, left sided weakness, numbness, paresthesia, pre-existing deficit, right sided numbness, right sided weakness, seizure, speech problems, tingling, tremors, weakness, others Musculoskeletal: denies: back pain, gout, joint pain, joint swelling, muscle pain, muscle stiffness, neck pain, others Integumetry: denies: bruises, change in color, change in hair/nails, dryness, laceration, lesions, lumps, rash, wounds, others Allergic/Immunocompromised: denies: Difficulty Healing, Frequent Infections, Hives, Itching, others Hematologic/Lymphatic: denies: anemia, blood clots, easy bleeding, easy bruising, swollen glands, others Endocrine: denies: excessive hunger, excessive sweating, excessive thirst, excessive urination, flushing, intolerance to cold, intolerance to heat, unexplained weight gain, unexplained weight loss, others Psychiatric: denies: anxiety, bipolar disorder, depression, hopeless, panic disorder, schizophrenia, sleepless, suicidal, others Physical Exam General Appearance: No Apparent Distress, Normal HEENT: Normal ENT Inspection, Pharynx Normal, TMs Normal Neck: Full Range of Motion, Non-Tender, Normal, Normal Inspection Respiratory: Chest Non-Tender, Lungs Clear, No Accessory Muscle Use, No Respiratory Distress, Normal Breath Sounds Cardiovascular: No Edema, No JVD, No Murmur, No Gallop, Normal Peripheral Pulses, Regular Rate/Rhythm Breast Exam: Deferred Gastrointestinal: No Organomegaly, Non Tender, No Pulsatile Mass, Normal Bowel Sounds, Soft Genitalia: Deferred Pelvic: Deferred Rectal: Deferred Extremities: No calf tenderness, Normal capillary refill, Normal inspection, Normal range of motion, Non-tender, No pedal edema Musculoskeletal : Apperance: Normal Neurologic: Alert, justice court judge II-XII nml as Tested, No Motor Deficits, Normal Affect, Normal Mood, No Sensory Deficits Cerebellar Function: Normal Reflexes: Normal Skin: Dry, Normal Color, Warm Lymphatic: No Adenopathy Was a procedure done? Was a procedure done?: No GI differential Dx Differential Diagnosis: Bowel Obstruction, Diverticular disease, Gastritis/PUD, Gastroenteritis, UTI, Urolithiasis, Dehydration, Electrolyte Imbalance X-Ray, Labs, Meds, VS Vital Signs Date Time Temp Pulse Resp B/P (MAP) Pulse Ox O2 Delivery O2 Flow Rate FiO2 07/29/25 22:15 85 147/42 07/29/25 22:00 85 18 147/42 (77) 99 07/29/25 21:21 85 192/74 07/29/25 21:00 80 192/74 07/29/25 20:50 78 23 178/84 07/29/25 19:30 22 100 Nasal Cannula* 3 32 07/29/25 19:30 97.7 89 22 197/101 (133) 100 97.7 07/29/25 18:10 98.5 89 22 216/89 (131) 100 98.5 07/29/25 18:10 89 22 100 Nasal Cannula* 3 32 07/29/25 17:42 85 07/29/25 17:30 98.1 97 14 203/103 97 98.1 Lab Test 07/29/25 19:21 Range/Units White Blood Count 7.9 4.4-10.8 10^3/uL Red Blood Count 3.82 L 4.0-5.20 10^6/uL Hemoglobin 12.2 12.2-16.2 g/dL Hematocrit 35.8 L 36.0-46.0 % Mean Corpuscular Volume 93.7 80.0-100.0 fL Mean Corpuscular Hemoglobin 32.0 28.0-32.0 pg Mean Corpuscular Hemoglobin Concent 34.1 32.0-36.0 g/dL Red Cell Distribution Width 14.3 11.8-14.3 % Platelet Count 233 140-450 10^3/uL Mean Platelet Volume 9.6 6.9-10.8 fL Neutrophils (%) (Auto) 67.3 37.0-80.0 % Lymphocytes (%) (Auto) 20.2 10.0-50.0 % Monocytes (%) (Auto) 10.2 0.0-12.0 % Eosinophils (%) (Auto) 1.7 0.0-7.0 % Basophils (%) (Auto) 0.6 0.0-2.0 % Neutrophils # (Auto) 5.3 1.6-8.6 10 ^3/uL Lymphocytes # (Auto) 1.6 0.4-5.4 10 ^3/uL Monocytes # (Auto) 0.8 0-1.3 10 ^3/uL Eosinophils # (Auto) 0.1 0-0.8 10 ^3/uL Basophils # (Auto) 0 0-0.2 10 ^3/uL Nucleated Red Blood Cells 0.0 % Sodium Level 140 136-145 mmol/L Potassium Level 3.6 3.5-5.1 mmol/L Chloride Level 104 98-107 mmol/L Carbon Dioxide Level 22 20-31 mmol/L Anion Gap 14 5-15 Blood Urea Nitrogen 29 H 9-23 mg/dL Creatinine 2.91 H 0.550-1.02 mg/dL Glomerular Filtration Rate Calc 17 >90 mL/min BUN/Creatinine Ratio 10.0 10.0-20.0 Serum Glucose 83 74-106 mg/dL Calcium Level 8.2 L 8.7-10.4 mg/dL Total Bilirubin 0.2 0.2-1.0 mg/dL Aspartate Amino Transferase (AST) 20 13-40 U/L Alanine Aminotransferase (ALT) 21 7-40 U/L Alkaline Phosphatase 292 H 46-116 U/L Total Protein 7.4 5.7-8.2 g/dL Albumin 4.5 3.2-4.8 g/dL Lipase 50 12-53 U/L Current Medications Medications (Trade) Dose Ordered Sig/Taina Route Start Time Stop Time Status Last Admin Famotidine (Pepcid Injection) 20 mg ONCE ONCE IV 07/29/25 19:45 07/29/25 19:46 DC 07/29/25 20:49 Ondansetron HCl (Zofran) 4 mg ONCE ONCE IV 07/29/25 19:45 07/29/25 19:46 DC 07/29/25 20:49 Labetalol HCl (Labetalol HCl) 20 mg ONCE ONCE IV 07/29/25 19:45 07/29/25 19:46 DC 07/29/25 21:21 Morphine Sulfate 4 mg ONCE ONCE IV 07/29/25 19:45 07/29/25 19:46 DC 07/29/25 20:50 Al Hydrox/Mg Hydrox/Simethicone (Maalox Plus) 30 ml ONCE ONCE PO 07/29/25 20:00 07/29/25 20:01 DC 07/29/25 20:50 Labetalol HCl (Labetalol HCl) 20 mg ONCE ONCE IV 07/29/25 22:00 07/29/25 22:01 DC 07/29/25 21:00 PROCEDURE(s): ABPLIV - CT AB PEL WITH IV CON ONLY REASON: diffuse abd pain, HD patient ORDER NUMBER(s): [id number], ACCESSION NUMBER(s): [id number] CLINICAL HISTORY: diffuse abd pain, HD patient TECHNIQUE: CT of the abdomen and pelvis was performed with intravenous contrast . This exam was performed according to our departmental dose optimization progr am. Up-to-date CT equipment and radiation dose reduction techniques are utilized as appropriate. WID: COMPARISON: CT ABDOMEN WITHOUT CONTRAST on DOS: 07/17/25, CT ABD PELVIS WO CONTRAST on DOS: 09/16/19 FINDINGS: Lung bases: There is diffuse bronchial wall thickening within the imaged lower lungs. Status post median sternotomy with post CABG changes. Status post cholecystectomy. There is mild intra and extrahepatic biliary ductal dilation. The common bile duct measures 12 mm. The pancreas is unremark able. The adrenal glands and spleen are within normal limits. Multiple cysts within an atrophic and irregularly positioned right pelvic kidney. The urinary bladder is unremarkable.. Multiple cysts within the left kidney which appears mildly atrophic. Small hiatal hernia. Mild small bowel wall thickening without obstruction and minimal dilatation. The appendix is not visualized. Moderate colonic stool burden. Status post hysterectomy. No enlarged intra-abdominal lymph nodes. Diffuse atherosclerotic changes throughout the abdominal aorta and iliac arteries. Mild degenerative changes. IMPRESSION: Possible mild enteritis. Mild renal atrophy with numerous cysts. Status post cholecystectomy with mild intra and extrahepatic biliary ductal dilation which can be normal in the post cholecystectomy setting. Correlate with LFTs is biliary strictures within the differential. Chronic bronchitis/large airways disease within the imaged lower lungs. Moderate distal colonic stool burden. Status post median sternotomy Time of 1ST Reevaluation: 18:32 Reevaluation 1ST: Unchanged Patient Education/Counseling: Diagnosis, Treatment Family Education/Counseling: No Family Present SEPSIS Sepsis Screen Date sepsis recognized/suspect: Jul 29, 2025 Time Sepsis recognized/suspect: 1812 Recent Procedure: No On Antibiotic Therapy: No Respiratory Rate >20: Yes Heart Rate >90: No Temp<36 C (96.8 F) or >38.3 C: No SBP <90 or MAP <65 mmHG: No New Acute Mental Status Change: No Is the patient on CPAP, BIPAP,: No Physician Orders Electrocardigram (07/29/25 17:46) Urinalysis (07/29/25 19:07) Ct Ab Pel With Iv Con Only (07/29/25 19:07) Vital Signs Date Time Temp Pulse Resp B/P (MAP) Pulse Ox O2 Delivery O2 Flow Rate FiO2 07/29/25 22:15 85 147/42 07/29/25 22:00 85 18 147/42 (77) 99 07/29/25 21:21 85 192/74 07/29/25 21:00 80 192/74 07/29/25 20:50 78 23 178/84 07/29/25 19:30 22 100 Nasal Cannula* 3 32 07/29/25 19:30 97.7 89 22 197/101 (133) 100 97.7 07/29/25 18:10 98.5 89 22 216/89 (131) 100 98.5 07/29/25 18:10 89 22 100 Nasal Cannula* 3 32 07/29/25 17:42 85 07/29/25 17:30 98.1 97 14 203/103 97 98.1 Laboratory Tests Test 07/29/25 19:21 White Blood Count 7.9 10^3/uL (4.4-10.8) Medications Medications Dose Ordered Sig/Taina Route Start Time Stop Time Status Last Admin Dose Admin Al Hydrox/Mg Hydrox/Simethicone 30 ml ONCE ONCE PO 07/29/25 20:00 07/29/25 20:01 DC 07/29/25 20:50 Famotidine 20 mg ONCE ONCE IV 07/29/25 19:45 07/29/25 19:46 DC 07/29/25 20:49 Labetalol HCl 20 mg ONCE ONCE IV 07/29/25 19:45 07/29/25 19:46 DC 07/29/25 21:21 Labetalol HCl 20 mg ONCE ONCE IV 07/29/25 22:00 07/29/25 22:01 DC 07/29/25 21:00 Morphine Sulfate 4 mg ONCE ONCE IV 07/29/25 19:45 07/29/25 19:46 DC 07/29/25 20:50 Ondansetron HCl 4 mg ONCE ONCE IV 07/29/25 19:45 07/29/25 19:46 DC 07/29/25 20:49 Departure 1 Departure Time of Disposition: 20:33 (64-year-old female with past medical history of hypertension, end-stage renal disease (HD Saturday, , Saturday, last dialyzed today), COPD (on home oxygen) presenting for evaluation of recurrent abdominal pain, cramping for almost 1 week. Patient initially had nausea, vomiting, diarrhea, could have been consistent with food-borne illness versus viral gastroenteritis. Patient now with diarrhea that has resolved, however, still having cramping. Has had prior abdominal surgeries. Consider possible small bowel obstruction. CT of the abdomen and pelvis was performed which shows findings of likely mild gastroenteritis and constipation this could explain the patient's pain. The patient was given IV labetalol for uncontrolled hypertension. Was given IV morphine, IV Pepcid, IV Zofran and oral Maalox for abdominal discomfort. Patient with no episodes of vomiting here. CBC with no evidence of critical leukocytosis or significant anemia. Metabolic panel with no evidence ultralight abnormalities, does show no known end-stage renal disease, did not receive dialysis today. Patient with no evidence of critically elevated liver function test. Upon reassessment patient feeling significantly improved. Vital signs improved. Stable for discharge further outpatient management. Will be given a prescription for Pepcid, Maalox, Zofran. Will be given a prescription for senna, Colace to assist her and having a bowel movement. However, advised to return for worsening symptoms.) Impression: Primary Impression: Abdominal pain Additional Impressions: Abdominal cramping Nausea Uncontrolled hypertension End stage renal disease on dialysis Disposition: HOME / SELF CARE / HOMELESS Condition: Stable Additional Instructions: Your CT showed findings of mild enteritis and constipation. You were given a prescription for Pepcid, Maalox, Zofran to take as needed for abdominal discomfort. You were also given a prescription for the senna and Colace to assist you with having a bowel movement. e-Prescriptions Docusate Sodium (Colace) 100 Mg Cap 1 CAP PO TIDPRN PRN for 14 Days, #60 CAP Prov: DOUG AYALA MD 07/30/25 Senna (Senokot) 8.6 Mg Tab 2 TAB PO QHSP PRN for 14 Days, #30 TAB Prov: DOUG AYALA MD 07/30/25 Ondansetron Odt 4MG Tab (ZOFRAN PO) 4 Mg Tb 4 MG PO Q6HPRN PRN for 3 Days, #12 TAB ODT TAB-DISSOLVE IN MOUTH, THEN SWALLOW Prov: DOUG AYALA MD 07/30/25 Alum & Mag Hydrox-Simethicone (Maalox Plus) 30 Ml Ss 30 ML PO DAILY for 10 Days, #240 ML Prov: DOUG AYALA MD 07/30/25 Famotidine (PEPCID TABLET) 20 Mg Tb 1 TAB PO DAILY for 30 Days, #30 TAB 5 Refills Prov: DOUG AYALA MD 07/30/25 Discharged With: Self Critical Care Note Critical Care Time?: Yes (35 min-critical care time only) Critical care comment: Patient with uncontrolled hypertension requiring IV antihypertensives for tighter blood pressure control Stability Stability form required: No Heart Score Heart Score: Heart Score Response (Comments) Value History N/A 0 EKG N/A 0 Age N/A 0 Risk Factors N/A 0 Troponin N/A 0 Total 0 I personally scribed for DOUG AYALA MD (CIELO) on 07/29/25 at 18:36. Electronically submitted by Reyes Kimble (ANA). I personally scribed for DOUG AYALA MD (CIELO) on 07/30/25 at 00:25. Electronically submitted by Reyes Kimble (ANA). DOUG AYALA MD Jul 29, 2025 18:36
[2025-07-29 19:30] VITALS: RESP 22; TEMP 97.7; O2SAT 100
[2025-07-29 20:02] LABS: Hematocrit 35.8 % (36.0-46.0); Hemoglobin 12.2 g/dL (12.2-16.2); Mean Corpuscular Hemoglobin 32.0 pg (28.0-32.0); Mean Corpuscular Volume 93.7 fL (80.0-100.0); Nucleated Red Blood Cells % 0.0 %
[2025-07-29 20:22] LABS: Alanine Aminotransferase 21 U/L (7-40); Anion Gap 14 (5-15); BUN/Creatinine Ratio 10.0 (10.0-20.0); Carbon Dioxide 22 mmol/L (20-31); Chloride 104 mmol/L (98-107); Glucose 83 mg/dL (74-106); Lipase 50 U/L (12-53); Potassium 3.6 mmol/L (3.5-5.1); Sodium 140 mmol/L (136-145); Total Protein 7.4 g/dL (5.7-8.2)
[2025-07-29 20:23] LABS: Albumin 4.5 g/dL (3.2-4.8)
[2025-07-29] MEDS: FAMOTIDINE (10MG/ML) 2ML VL IV ONE (20:49)
[2025-07-29] MEDS: ONDANSETRON HCL 4 MG/2 ML VIAL IV ONE (20:49)
[2025-07-29] MEDS: MAALOX PLUS or MAALOX 30 ML PO ONE (20:50)
[2025-07-29] MEDS: MORPHINE SULFATE 4 MG/ML SYR/VIAL IV ONE (20:50)
[2025-07-29] MEDS: LABETALOL HCL 20 MG/4 ML VL IV ONE ×2 (21:00→21:21)
[2025-07-29 21:17] LABS: Alkaline Phosphatase 292 U/L (46-116); Bilirubin, Total 0.2 mg/dL (0.2-1.0); Blood Urea Nitrogen 29 mg/dL (9-23); Calcium 8.2 mg/dL (8.7-10.4)
[2025-07-29] MEDS: IOHEXOL 300 MG/ML 100ML BOTTLE IJ ONE (23:01)
--- NOTE | 2025-07-29 23:14 | DVH ---
CLINICAL HISTORY: diffuse abd pain, HD patient TECHNIQUE: CT of the abdomen and pelvis was performed with intravenous contrast . This exam was performed according to our departmental dose optimization program. Up-to-date CT equipment and radiation dose reduction techniques are utilized as appropriate. WID: COMPARISON: CT ABDOMEN WITHOUT CONTRAST on DOS: 07/17/25, CT ABD PELVIS WO CONTRAST on DOS: 09/16/19 FINDINGS: Lung bases: There is diffuse bronchial wall thickening within the imaged lower lungs. Status post median sternotomy with post CABG changes. Status post cholecystectomy. There is mild intra and extrahepatic biliary ductal dilation. The common bile duct measures 12 mm. The pancreas is unremarkable. The adrenal glands and spleen are within normal limits. Multiple cysts within an atrophic and irregularly positioned right pelvic kidney. The urinary bladder is unremarkable.. Multiple cysts within the left kidney which appears mildly atrophic. Small hiatal hernia. Mild small bowel wall thickening without obstruction and minimal dilatation. The appendix is not visualized. Moderate colonic stool burden. Status post hysterectomy. No enlarged intra-abdominal lymph nodes. Diffuse atherosclerotic changes throughout the abdominal aorta and iliac a rteries. Mild degenerative changes. IMPRESSION: Possible mild enteritis. Mild renal atrophy with numerous cysts. Status post cholecystectomy with mild intra and extrahepatic biliary ductal dilation which can be normal in the post cholecystectomy setting. Correlate with LFTs is biliary strictures within the differential. Chronic bronchitis/large airways disease within the imaged lower lungs. Moderate distal colonic stool burden. Status post median sternotomy
[2025-07-30] MEDS ORDERED: DOCU-94 PO (01:35)
[2025-07-30] MEDS ORDERED: ZOFR4T PO (01:35)
[2025-07-30] MEDS ORDERED: MAA30LQ PO (01:35)
[2025-07-30] MEDS ORDERED: FAMO20TA10 PO (01:35)
[2025-07-30] MEDS ORDERED: SENN-58 PO (01:35)
[2025-07-30 02:00] VITALS: BP 161/66; PULSE 70; RESP 18; O2SAT 100
--- NOTE | 2025-07-30 03:51 | ECG ---
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
== END 2025-07-30 02:31 | disposition home or self-care (01) ==
LOC: EDBD 17:14 → ER 17:14 → EDUNIT# 17:14 → ER 07-30 02:31
DX: I12.0 Hypertensive chronic kidney disease with stage 5 chronic kidney disease or end stage renal disease (principal); N18.6 End stage renal disease; R10.84 Generalized abdominal pain; R11.0 Nausea; I25.10 Atherosclerotic heart disease of native coronary artery without angina pectoris; I25.2 Old myocardial infarction; F17.210 Nicotine dependence, cigarettes, uncomplicated; J44.89 Other specified chronic obstructive pulmonary disease; F10.90 Alcohol use, unspecified, uncomplicated; E78.5 Hyperlipidemia, unspecified; Z79.899 Other long term (current) drug therapy; Z98.890 Other specified postprocedural states; Z95.1 Presence of aortocoronary bypass graft; Z90.49 Acquired absence of other specified parts of digestive tract; Z79.891 Long term (current) use of opiate analgesic; Z79.82 Long term (current) use of aspirin; Z90.710 Acquired absence of both cervix and uterus; Z79.51 Long term (current) use of inhaled steroids; Z99.2 Dependence on renal dialysis
CPT/HCPCS: 36415; 74177; 80053; 83690; 85025; 93005; 96374; 96375; 99285; J2270; J2405; J3490; Q9967; 99291